=== PATIENT | male | born 1940 | race Caucasian/White ===

== ENCOUNTER 2022-08-02 17:29 | Inpatient (IN) | payer MEDICARE, OTHER, SELFPAY ==
[2022-08-02] VITALS (15 sets, daily range): BP systolic 101–131; BP diastolic 55–59; PULSE 61–88; RESP 18–20; TEMP 36.5–36.8; O2SAT 78–98; BMI 45.3
--- NOTE | 2022-08-02 17:35 | DI.RAD.S_ITS ---
PROCEDURE: XR CHEST 1V INDICATIONS: suspected sepsis TECHNIQUE: One view of the chest was acquired. COMPARISON: [facility], , CHEST FOR PICC PLACEMENT, 04/17/2015, 14:26. [facility], , CHEST 1 VIEW, 04/03/2015, 13:24. FINDINGS: Surgical changes and devices: Left chest wall pulse generator. Multiple electrode leads are present in the left and right chest guerrero, overall similar position compared to prior imaging in 2015. Lungs and pleura: Low lung volumes. No dense consolidation or pleural effusion. Mediastinum: Mediastinal contours appear normal. Heart size is normal. Bones and chest wall: No suspicious bony lesions. Overlying soft tissues appear unremarkable. IMPRESSION: No acute radiographic abnormality. Overall low lung volumes. Stable positioning of multiple electrode leads over the right and left chest guerrero. Dictated by: Giovanni Hunter M.D. on 08/02/2022 at 18:18 Approved by: Giovanni Hunter M.D. on 08/02/2022 at 18:19
[2022-08-02 18:01] LABS: Add Manual Diff / Slide Review NO; Basophils Absolute Auto 200 /uL (0-100); Basophils Percent Auto 1.6 % (0-2); Eosinophils Absolute Auto 500 /uL (0-450); Eosinophils Percent Auto 3.9 % (2-4); Hematocrit 40.4 % (41-53); Hemoglobin 12.9 g/dL (13.5-17.5); Lymphocytes Absolute Auto 3400 /uL (1100-4500); Lymphocytes Percent Auto 27.4 % (25-40); Mean Corpuscular HGB Conc 31.9 % (30-36); Mean Corpuscular Hemoglobin 24.7 PG (26-34); Mean Corpuscular Volume 77.4 fL (80-100); Monocytes Absolute Auto 800 /uL (0-900); Monocytes Percent Auto 6.8 % (3-14); Neutrophils Absolute Auto 7400 /uL (1500-7000); Neutrophils Percent Auto 60.3 % (50-75); Platelet Count 407 X10^3/uL (150-400); Red Blood Cell Count 5.22 X10^6/uL (4.5-5.9); Red Cell Distribution Width 18.8 % (11.6-14.8); White Blood Cell Count 12.3 X10^3/uL (4.5-11.0)
[2022-08-02 18:27] LABS: INR 1.3 (0.9-1.3); Prothrombin Time 14.4 SECONDS (10.1-12.7)
[2022-08-02 18:30] LABS: Alanine Aminotransferase 34 IU/L (<50); Alkaline Phosphatase 148 U/L (38-126); Aspartate Aminotransferase 33 IU/L (17-59); BUN Creatinine Ratio 24.5 (6-22); Bilirubin Total 0.4 mg/dL (0.2-1.3); Blood Urea Nitrogen 24 mg/dL (9-20); Calcium 8.7 mg/dL (8.4-10.2); Carbon Dioxide 33 mmol/L (22-32); Chloride 99 mmol/L (98-107); Estimated Glomerular Filt Rate > 60 mL/min (>60); Glucose 116 mg/dL (80-110); Lipase 95 U/L (23-300); Potassium 4.5 mmol/L (3.4-5.1); Sodium 138 mmol/L (137-145); Total Protein 7.7 g/dL (6.3-8.2)
[2022-08-02 18:30] LABS: Lactate (Lactic Acid) 1.1 mmol/L (0.7-2.1); PTT Partial Thromboplastin Tim 38 SECONDS (26-36)
[2022-08-02 18:40] LABS: COVID19 -Nasal RAPID Negative (Negative)
[2022-08-02 18:46] LABS: Procalcitonin 0.05 ng/mL (<0.5)
--- NOTE | 2022-08-02 18:57 | ED.SKABFB ---
HPI - Skin/Abscess/Foreign Bdy General Chief complaint: Skin/Abscess/Foreign Body Stated complaint: pressure sore Time Seen by Provider: 08/02/22 17:30 Source: patient and EMS Mode of arrival: EMS Limitations: no limitations History of Present Illness HPI narrative: 81-year-old gentleman with a back injury in 2002 which has led him to be nonambulatory since then. He was recently [place] overload and [place] [facility] [place] for [facility] however insurance ran out and he was discharged home. He was unable to care for himself at home and he was taken to [facility] Emergency Department on 07/20 where he spent 11 days voiding in the emergency department due to lack of disposition options. Hospital bed was arranged for home and he wanted to go home stated that he had additional help set up as well as oxygen. They were aware of a decubitus ulcer that was nonpainful because of decreased sensation to the lower extremities overall. He was started on Augmentin with wound care clinic follow-up on August 03 and discharge to home on the . Brought by medics to [facility] after visiting nurse was concerned that the pressure wound was getting worse. Patient is awake and alert x4 has a chronic indwelling Mckee and is on 2 L nasal cannula oxygen at baseline. He has no specific complaints and has no specific pain with minimal sensation to the area of the sacrum and unable to walk due to nerve injury. He does not report fevers, cough, chills, abdominal pain, vomiting or diarrhea. Related Data Home Medications Medication Instructions Recorded Confirmed ASPIRIN (Aspir-Low) 81 mg PO QDAY ##0 07/01/11 carvedilol 25 mg tablet (Coreg) 25 mg PO BID ##0 02/29/12 Ranitidine Hydrochloride 150 mg PO BID ##0 03/01/12 (RANITIDINE) lisinopril 10 mg tablet 10 mg PO QDAY ##0 03/01/12 simvastatin 20 mg tablet 20 mg PO HS ##0 03/01/12 Allergies Allergy/AdvReac Type Severity Reaction Status Date / Time No Known Drug Allergies Allergy Verified 08/02/22 17:38 Review of Systems Review of Systems Narrative: Remainder of complete review of systems is otherwise unremarkable except for that included in the HPI. Patient History Medical History (Updated 08/03/22 @ 02:04 by Mary Lou Angel MD) Congestive heart failure Coronary artery disease Hyperlipidemia Hypertension Paraplegic spinal paralysis Social History household members: spouse Smoking Status: Never smoker Smoking Status: Never smoker Substance Use Type: does not use Exam Initial Vital Signs Initial Vital Signs: Vital Signs Temperature 98.2 F 08/02/22 17:34 Pulse Rate 77 08/02/22 17:34 Respiratory Rate 18 08/02/22 17:34 Blood Pressure 131/58 L 08/02/22 17:34 Pulse Oximetry 90 L 08/02/22 17:34 Oxygen Delivery Method 08/02/22 17:34 Oxygen Flow Rate 2 08/02/22 17:34 General: Chronically ill-appearing but in no acute distress. Able to give a complete and coherent history. Well-nourished well-developed HEENT: Moist mucous membranes, normal sclera with reactive pupils, Neck: No JVD, supple Respiratory: Lungs are clear to auscultation, no wheezing no rales no rhonchi. Full and symmetrical air movement Cardiac: Pacemaker in the left upper chest, Regular rate and rhythm no murmurs no bruits Abdomen: Soft, obese, nontender, good bowel tones, no flank pain Skin: Large sacral decubitus ulcer with necrotic debris and tunneling, smells of Pseudomonas Neurologic: Minimal sensation from lower abdomen down. Significant weakness and unable to bear weight with lower extremities Extremities: No trauma, muscle atrophy, well perfused Psych: Cooperative, appropriate insight and affect Course Orders Ordered: ED Orders 08/02/22 17:35 XR chest 1V Stat EKG-12 Lead Stat RT Consult Eval and Treat NOW 08/02/22 17:37 Consult to [employer] - [employer] Meal Stat 08/02/22 17:52 Complete Blood Count AUTO DIFF Stat Comprehensive Metabolic Panel Stat Lipase Stat Procalcitonin Stat 08/02/22 18:00 Blood Culture Stat COVID19 -Nasal RAPID/Pre-Proc Stat Lactate (Lactic Acid) Stat Partial Thromboplastin Time Stat Prothrombin Time INR Stat 08/02/22 18:22 Urinalysis and Microscopic Stat Urine Culture Stat 08/02/22 18:58 CT abdomen pelvis w con Stat 08/02/22 19:00 Wound Culture and Gram Stain Stat Discontinued Medications Cefepime HCl 2 gm/ Sodium (Chloride) 100 mls @ 200 mls/hr IV NOW ONE Stop: 08/02/22 18:59 Last Infusion: 08/02/22 20:27 Dose: 0 mls/hr Documented By: Admin: 08/02/22 19:53 Dose: 200 mls/hr Documented By: ALENA Vancomycin HCl/Dextrose (Vancomycin) 2,000 mg in 400 mls @ 200 mls/hr IV NOW ONE Stop: 08/02/22 21:14 Last Infusion: 08/02/22 22:13 Dose: 0 mls/hr Documented By: Admin: 08/02/22 20:09 Dose: 200 mls/hr Documented By: ALENA Vancomycin HCl (Vancomycin Per Pharmacy) 1 request MISC NOW ONE Stop: 08/02/22 18:59 Last Admin: 08/02/22 21:27 Dose: Not Given Documented By: MAKENNA Vital Signs Vital signs: Vital Signs - 8 hr 08/02/22 18:30 08/02/22 19:00 08/02/22 19:30 Pulse Rate 64 76 65 Pulse Oximetry 96 95 78 L Oxygen Delivery Method Room Air 08/02/22 20:00 08/02/22 20:30 08/02/22 21:00 Pulse Rate 69 62 88 Pulse Oximetry 96 98 96 Oxygen Delivery Method 08/02/22 21:30 08/02/22 22:00 08/02/22 22:30 Pulse Rate 66 61 77 Pulse Oximetry 97 97 96 Oxygen Delivery Method MDM - Skin/Abscess/Foreign Bdy Lab Data Result diagrams: 08/02/22 17:52 08/02/22 17:52 Labs: Lab Results 08/02/22 08/02/22 08/02/22 Range/Units 17:52 17:52 18:00 WBC 12.3 H (4.5-11.0) X10^3/uL RBC 5.22 (4.5-5.9) X10^6/uL Hgb 12.9 L (13.5-17.5) g/dL Hct 40.4 L (41-53) % MCV 77.4 L (80-100) fL MCH 24.7 L (26-34) PG MCHC 31.9 (30-36) % RDW 18.8 H (11.6-14.8) % Plt Count 407 H (150-400) X10^3/uL Neut % (Auto) 60.3 (50-75) % Lymph % (Auto) 27.4 (25-40) % [place] % (Auto) 6.8 (3-14) % Eos % (Auto) 3.9 (2-4) % Baso % (Auto) 1.6 (0-2) % Neut # (Auto) 7400 H (3232-1625) /uL Lymph # (Auto) 3400 (6886-3358) /uL Dewey # (Auto) 800 (0-900) /uL Eos # (Auto) 500 H (0-450) /uL Baso # (Auto) 200 H (0-100) /uL PT 14.4 H (10.1-12.7) SECONDS INR 1.3 (0.9-1.3) APTT 38 H (26-36) SECONDS Sodium 138 (137-145) mmol/L Potassium 4.5 (3.4-5.1) mmol/L Chloride 99 (98-107) mmol/L Carbon Dioxide 33 H (22-32) mmol/L BUN 24 H (9-20) mg/dL Creatinine 0.98 (0.66-1.25) mg/dL Estimated GFR > 60 (>60) mL/min BUN/Creatinine Ratio 24.5 H (6-22) Glucose 116 H (80-110) mg/dL Lactate (0.7-2.1) mmol/L Calcium 8.7 (8.4-10.2) mg/dL Total Bilirubin 0.4 (0.2-1.3) mg/dL AST 33 (17-59) IU/L ALT 34 (<50) IU/L Alkaline Phosphatase 148 H (38-126) U/L Total Protein 7.7 (6.3-8.2) g/dL Lipase 95 (23-300) U/L Procalcitonin 0.05 (<0.5) ng/mL Urine Color Urine Appearance Urine pH (4.5-8.0) Ur Specific [place] (1.000-1.035) Urine Protein (Negative) Urine Glucose (UA) (Negative) g/dL Urine Ketones (NEGATIVE) Urine Occult Blood (Negative) Urine Nitrate (Negative) Urine Bilirubin (NEGATIVE) Urine Urobilinogen (0.2) E.U./dL Ur Leukocyte Esterase (NEGATIVE) Urine RBC (0-5/HPF) Urine WBC (0-5/HPF) Ur Squamous Epith Cells (0-5/HPF) Ur Transition Epith Cell (0-5/HPF) Urine Bacteria (None) Ur Culture Indicated? SARS-CoV-2 (PCR) (Negative) 08/02/22 08/02/22 08/02/22 Range/Units 18:00 18:00 18:22 WBC (4.5-11.0) X10^3/uL RBC (4.5-5.9) X10^6/uL Hgb (13.5-17.5) g/dL Hct (41-53) % MCV (80-100) fL MCH (26-34) PG MCHC (30-36) % RDW (11.6-14.8) % Plt Count (150-400) X10^3/uL Neut % (Auto) (50-75) % Lymph % (Auto) (25-40) % Dewey % (Auto) (3-14) % Eos % (Auto) (2-4) % Baso % (Auto) (0-2) % Neut # (Auto) (6779-2785) /uL Lymph # (Auto) (8525-5946) /uL Dewey # (Auto) (0-900) /uL Eos # (Auto) (0-450) /uL Baso # (Auto) (0-100) /uL PT (10.1-12.7) SECONDS INR (0.9-1.3) APTT (26-36) SECONDS Sodium (137-145) mmol/L Potassium (3.4-5.1) mmol/L Chloride (98-107) mmol/L Carbon Dioxide (22-32) mmol/L BUN (9-20) mg/dL Creatinine (0.66-1.25) mg/dL Estimated GFR (>60) mL/min BUN/Creatinine Ratio (6-22) Glucose (80-110) mg/dL Lactate 1.1 (0.7-2.1) mmol/L Calcium (8.4-10.2) mg/dL Total Bilirubin (0.2-1.3) mg/dL AST (17-59) IU/L ALT (<50) IU/L Alkaline Phosphatase (38-126) U/L Total Protein (6.3-8.2) g/dL Lipase (23-300) U/L Procalcitonin (<0.5) ng/mL Urine Color Yellow Urine Appearance Sl cloudy Urine pH 5.5 (4.5-8.0) Ur Specific [place] 1.010 (1.000-1.035) Urine Protein Negative (Negative) Urine Glucose (UA) Negative (Negative) g/dL Urine Ketones Negative (NEGATIVE) Urine Occult Blood 1+ H (Negative) Urine Nitrate Positive H (Negative) Urine Bilirubin Negative (NEGATIVE) Urine Urobilinogen 0.2 (0.2) E.U./dL Ur Leukocyte Esterase 2+ H (NEGATIVE) Urine RBC None seen (0-5/HPF) Urine WBC 30-100/hpf H (0-5/HPF) Ur Squamous Epith Cells 1-5 /hpf (0-5/HPF) Ur Transition Epith Cell 1-5/hpf (0-5/HPF) Urine Bacteria Moderate (10-30) H (None) Ur Culture Indicated? Specimen cultured SARS-CoV-2 (PCR) Negative (Negative) Imaging Data CT scan - abdomen/pelvis: Radiologist's Impression: FINDINGS:? Image quality:? Good ? Lower chest:? Basal scarring/atelectasis.? Partially seen electrode leads.? Coronary calcifications.? Small hiatal hernia.? Prominent mediastinal fat. ? Solid organs:? Liver is unremarkable.? Gallbladder is unremarkable.? No pathologic dilation of the biliary tree or pancreatic duct.? No splenomegaly.? No adrenal nodules.? No hydronephrosis. ? Vessels and lymph nodes:? Prominent abdominal pelvic lymph nodes, without pathologic adenopathy by size criteria.? No abdominal aortic aneurysm. ? Bowel and peritoneum:? No pathologic ascites.? No drainable intra-abdominal abscess.? No bowel obstruction.? Few colonic diverticula are present.? Suspected age-indeterminate epiploic appendagitis/fat necrosis in the distal descending colon, correlate for left lower quadrant pain. Normal appearance of the appendix and terminal ileum. ? Body wall:? Fat and omentum containing umbilical hernia.? Post sacral ulcer without drainable abscess.? There is a skin defect in this region, with fat stranding that extends to the coccyx and lower sacrum. ? Pelvis:? Under distended bladder with air and wall thickening, with a Mckee in place.? Prostate is not well evaluated. ? Bones:? No acute or suspicious osseous abnormality.? There is no convincing erosions in the pelvis.? Scattered degenerative changes and posterior decompression. ? ? IMPRESSION:? Post sacral ulcer with cellulitis changes, with inflammation extending to the region of the coccyx and lower sacrum.? Although there is no convincing osseous erosion on CT, MRI is more sensitive and can be ordered for further evaluation if desired. ? Under distended bladder with wall thickening and Mckee in place.? Correlate with urinalysis results. ? Other findings as above. ? ? Dictated by: Giovanni Hunter M.D. on 08/02/2022 at 20:11 ? ? ECG Data Interpretation: Sinus rhythm at a rate of [address] T wave changes No acute ischemia Treatment and disposition Social Determinants of Health that impact treatment or disposition: Difficulty caring for self with recent extended emergency department stay due to lack of placement options MDM Narrative Medical decision making narrative: CC: Worsening sacral decubitus :new problem, uncertain prognosis, potential for life-threatening morbidity and mortality Complicating co-morbidities: Paraplegia, congestive heart failure, hypertension, morbid obesity, mobility impaired Corroborating data: Data collected from: patient, Medical records reviewed: [place] [facility] Differential considered: Sacral decubitus, osteomyelitis, sepsis Exam documented above, pertinent findings include: Alert and appropriate. In no pain. Baseline heart rate and oxygen level. Large sacral decubitus with discharge, tunneling and surrounding cellulitis Lab Test results independently reviewed as above. Pertinent findings: Positive urinary tract infection Slightly elevated white blood cell count remainder of CBC is minimally abnormal Chemistries are reassuring with normal renal function Lactic acid is normal Procalcitonin is not elevated Independently reviewed EKG as above Imaging studies independently reviewed: Post sacral ulcer with cellulitis changes, with inflammation extending to the region of the coccyx and lower sacrum.? Although there is no convincing osseous erosion on CT Consultations: Dr. Rajput, general surgery. Agrees to consult on the patient to consider surgical debridement of the sacral decubitus Treatments: IV antibiotics with vancomycin and cefepime. This should be adequate for the decubitus infection as well as the urinary tract infection. Re-evaluations: Findings are discussed with the patient. He remains pain-free. Is pleased with the option for actual admission to the hospital rather than staying in the emergency department for an extended period of time. Is somewhat frustrated with the development and worsening of his sacral decubitus. Does not complain of urinary tract symptoms. Discussion: 81-year-old gentleman with paraplegia, congestive heart failure, difficulty in caring for herself with extended stay after insurance ran out in a [place] [facility] facility at an emergency department with no additional options open to him. While there developed a sacral decubitus ulcer and now has complications of such and will need to be admitted for infection and surgical debridement. Will need social work involved and help with discharge planning will need, again, [place] [facility] [place] care upon discharge Discharge Plan Departure Patient Disposition: Admitted As Inpatient Clinical Impression: Decubitus ulcer of sacral region, unstageable Admit Date/Time: 08/02/22 22:48 Admit Provider: Gabbi Purcell
--- NOTE | 2022-08-02 18:58 | DI.CT.S_ITS ---
PROCEDURE: CT ABDOMEN PELVIS W CON INDICATIONS: worsening sacral decub with deep tunneling TECHNIQUE: After the administration of intravenous contrast, axial sections acquired from the lung bases to the pubic symphysis. Coronal and sagittal reformats were performed. For radiation dose reduction, the following was used: automated exposure control, adjustment of mA and/or kV according to patient size. COMPARISON: None. FINDINGS: Image quality: Good Lower chest: Basal scarring/atelectasis. Partially seen electrode leads. Coronary calcifications. Small hiatal hernia. Prominent mediastinal fat. Solid organs: Liver is unremarkable. Gallbladder is unremarkable. No pathologic dilation of the biliary tree or pancreatic duct. No splenomegaly. No adrenal nodules. No hydronephrosis. Vessels and lymph nodes: Prominent abdominal pelvic lymph nodes, without pathologic adenopathy by size criteria. No abdominal aortic aneurysm. Bowel and peritoneum: No pathologic ascites. No drainable intra-abdominal abscess. No bowel obstruction. Few colonic diverticula are present. Suspected age-indeterminate epiploic appendagitis/fat necrosis in the distal descending colon, correlate for left lower quadrant pain. Normal appearance of the appendix and terminal ileum. Body wall: Fat and omentum containing umbilical hernia. Post sacral ulcer without drainable abscess. There is a skin defect in this region, with fat stranding that extends to the coccyx and lower sacrum. Pelvis: Under distended bladder with air and wall thickening, with a Mckee in place. Prostate is not well evaluated. Bones: No acute or suspicious osseous abnormality. There is no convincing erosions in the pelvis. Scattered degenerative changes and posterior decompression. IMPRESSION: Post sacral ulcer with cellulitis changes, with inflammation extending to the region of the coccyx and lower sacrum. Although there is no convincing osseous erosion on CT, MRI is more sensitive and can be ordered for further evaluation if desired. Under distended bladder with wall thickening and Mckee in place. Correlate with urinalysis results. Other findings as above. Dictated by: Giovanni Hunter M.D. on 08/02/2022 at 20:11 Approved by: Giovanni Hunter M.D. on 08/02/2022 at 20:17
--- NOTE | 2022-08-02 19:09 | PC.NURSE ---
Unstagable pressure ulcer noted on pt's coccyx. Dr. Angel at bedside to see. Culture performed. Wet to dry dressing done.
[2022-08-02 19:20] LABS: Appearance Urine UA SL CLOUDY; Bilirubin Urine UA NEGATIVE (NEGATIVE); Color Urine UA YELLOW; Glucose Urine UA NEGATIVE (Negative); Ketones Urine UA NEGATIVE (NEGATIVE); Leukocyte Esterase Urine UA 2+ (NEGATIVE); Nitrite Urine UA POSITIVE (Negative); Occult Blood Urine UA 1+ (Negative); Protein Urine UA NEGATIVE (Negative); Urobilinogen Urine UA 0.2 E.U./dL (0.2); pH Urine UA 5.5 (4.5-8.0)
[2022-08-02 19:27] LABS: Bacteria Urine Moderate (10-30); Culture Indicated Urine Specimen Cultured; RBC Urine None Seen (0-5/HPF); Squamous Epithelial Cell Urine 1-5 /HPF (0-5/HPF); Transitional Epi Cells Urine 1-5/HPF (0-5/HPF); WBC Urine 30-100/HPF (0-5/HPF)
--- NOTE | 2022-08-02 19:33 | CM.IDA ---
Initial DCP Assessment Note Patient is 81 y/o male who presents to ED via EMS after [facility] RN called 911 due to concern for patient's wounds and bed sores. Patient was d/c'd from [facility] on 07/31/22 after a 10 day ED stay. Patient's PCP is Dr. George Luna, patient has Medicare and [employer]. buffing turner and counter enter room to meet with patient. Patient presents as A/Ox3, endorses difficulty with ADLs at home. Patient presents as poor historian as he initially reported that there was no in home services set up upon his d/c from [facility]. Patient endorses that he had only been at home for a day and has been bed bound since recent d/c from [facility]. After reviewing [facility] records patient had recent stay at [facility] and transfer to SNF rehab. It is reported that patient has O2 at home and was d/c'd with [facility] for wound care. Per [facility] records, patient requested to d/c to home after 10 day ED stay. RN reports that patient's Marguerite (Ph.# [phone]) is patient's primary caregiver and unable to care for patient's needs at this time. Patient gives consent for DCP/DIRECTOR OF CORPORATE SALES to contact spouse. Per ED provider patient is in need of surgery and is being admitted to acute care. Plan: Patient to admit to acute care for surgery, DCP to f/u with POC, likely will need OT/PT eval post surgery and SNF rehab search. JEANNA Salgado Discharge Planning/Care Management CM Discharge Assessment Start: 08/02/22 19:21 Freq: Status: Active Protocol: Document 08/02/22 19:21 LN (Rec: 08/02/22 19:32 LN [id number]) Discharge Planning Assessment Assigned Quality Management Nurse JEANNA Ashley DPOA/Assigned Designee Name Marguerite Spear/spouse Contact Information [phone] Advance Directives? No Advance Directives on File No History Provided By Patient,Medical Record Has Patient been admitted in last 30 No days? Comment Patient was just d/c'd from [facility] after 10 day ED stay Prior Living Arrangements House Household Members spouse Type of transporation used prior to Relies on Others admit Independent with ADL's No Is patient alert and oriented? Yes Needs Assistance With Bathing,Grooming,Meal Prep, Toileting,Home Chores / Shopping Community Services used prior to Oxygen Therapy,Physical admission: Therapy,Occupational Therapy, Home Health Aid,Home Health Nurse DME Already Rented / Owned Hospital Bed Patient/Family Preference Correction Facility Please Provide Date Initial DC 08/02/22 Assessment Was Performed
[2022-08-02] MEDS: CEFEPIME 2 GM in SODIUM CHLORIDE 0.9% 100 ML IV (19:53)
[2022-08-02] MEDS: VANCOMYCIN 2,000 MG/400 ML PIGGYBACK 200 MG IV (20:09)
[2022-08-03] VITALS (8 sets, daily range): BP systolic 89–131; BP diastolic 39–68; PULSE 66–71; RESP 18–19; TEMP 36.2–36.9; O2SAT 90–94
--- NOTE | 2022-08-03 00:27 | PC.NURSE ---
Photographs of wound taken by Anahi ROQUE Wet to dry dressings placed.
[2022-08-03] MEDS: GABAPENTIN 600 MG TABLET PO ×3 (03:33→21:43)
[2022-08-03] MEDS: LIDOCAINE PATCH 1 EACH ADH..PATCH TOP (03:33)
--- NOTE | 2022-08-03 04:16 | DI.RAD.S_ITS ---
PROCEDURE: XR HIP W PEL IF DONE RT 2V INDICATIONS: reported mult falls, paraplegic, right hip TECHNIQUE: 2 views of the hip were acquired. COMPARISON: None. FINDINGS: Bones: No displaced fracture or dislocation. Soft tissues: No suspicious soft tissue calcifications. Evaluation is slightly limited by prominent overlying soft tissues. IMPRESSION: No acute radiographic abnormality. If there is high concern for occult injury, consider repeat radiography or cross-sectional imaging. Agree with prelim report. Dictated by: Giovanni Hunter M.D. on 08/03/2022 at 8:16 Approved by: Giovanni Hunter M.D. on 08/03/2022 at 8:16
--- NOTE | 2022-08-03 04:19 | DI.RAD.S_ITS ---
PROCEDURE: XR TIBIA FUBULA RT 2V INDICATIONS: mult falls, paraplegic, signs of infec, decub ulcer TECHNIQUE: 2 views of the tibia and fibula were acquired. COMPARISON: None. FINDINGS: Bones: Partially seen knee arthroplasty. Chronic appearing deformities of the distal tibia and mid and proximal fibula. No convincing osseous erosion. There is some lucency surrounding the tibial portion of the knee arthroplasty. Soft tissues: No suspicious calcifications. IMPRESSION: No definitely acute finding. Agree with preliminary report. Deformity is of the tibia and fibula are probably chronic. Age-indeterminate mild lucent appearance surrounding the knee arthroplasty of uncertain significance, correlate for any clinical signs of loosening or infection. Dictated by: Giovanni Hunter M.D. on 08/03/2022 at 8:12 Approved by: Giovanni Hunter M.D. on 08/03/2022 at 8:15
--- NOTE | 2022-08-03 04:20 | DI.RAD.S_ITS ---
PROCEDURE: XR FOOT RT 2V INDICATIONS: mult falls, paraplegic, signs of infec, decub ulcer TECHNIQUE: Two views of the foot were acquired. COMPARISON: None. FINDINGS: Bones: Osteopenia limits evaluation. The toes are not well seen. There are hammertoe deformities. No displaced fracture or dislocation. Plantar calcaneal enthesopathy. Soft tissues: No suspicious calcifications. IMPRESSION: Degraded radiographic evaluation. The toes are not well seen. Hammertoe deformities. Overall osteopenia. Consider cross-sectional imaging if there is high concern for injury or derangement. No significant discrepancy from the prelim report. Dictated by: Giovanni Hunter M.D. on 08/03/2022 at 8:16 Approved by: Giovanni Hunter M.D. on 08/03/2022 at 8:19
--- NOTE | 2022-08-03 04:22 | DI.CT.S_ITS ---
PROCEDURE: CT LE RT W CON INDICATIONS: mult falls, paraplegic, signs of infec, decub ulcer. Right TECHNIQUE: After the administration of intravenous contrast, 2 mm axial sections acquired of the left lower extremity from just above left knee to bottom of left foot with coronal and sagittal reformats. COMPARISON: [facility], CR, XR TIBIA FIBULA RT 2V, 08/03/2022, 4:57. FINDINGS: Image quality: Excellent. Bones: Patient is status post prior left total knee arthroplasty with significant beam hardening artifacts slightly limits the evaluation. Alignment of lower leg is anatomic. No gross acute fracture or dislocation. No evidence of hardware loosening or failure. Chronic appearing deformity involving proximal fibular shaft is seen consistent with old healed fracture. Similar chronic appearing deformity is also noted involving distal tibial shaft consistent with healed oblique fracture. Old oblique fracture involving distal fibular shaft/lateral malleolus is also seen with partial bony union at fracture site and up to 4 mm diastasis. No other fracture or dislocation is seen. No bony erosive changes or significant periosteal reaction. Moderate osteoarthritic changes are noted in ankle and foot joints. Soft tissues: There is significant subcutaneous soft tissue edema and swelling along anterior and medial aspect of mid to distal lower leg extending to ankle and dorsal aspect of midfoot. No discrete drainable peripherally in sensing fluid collection is seen. No area of abnormal intramuscular enhancement. Small calcifications are seen in subcutaneous soft tissue along medial aspect of lower leg suggestive of small vascular calcifications. IMPRESSION: 1. Suggestion of cellulitis along anterior and medial aspect of mid to distal lower leg. No discrete drainable abscess collection is seen. 2. Prior right total knee arthroplasty. No gross hardware loosening or failure. No acute fracture or dislocation. Old healed fractures involving proximal fibular shaft, mid to distal tibial shaft, and lateral malleolus. Right ankle and foot joint osteoarthritis. 3. No CT evidence of osteomyelitis. Dictated by: Mekhi Blackburn M.D. on 08/03/2022 at 10:39 Approved by: Mekhi Blackburn M.D. on 08/03/2022 at 10:48
--- NOTE | 2022-08-03 04:24 | DI.US.S_ITS ---
PROCEDURE: US PERIPH VENOUS LOW EXTREM RT INDICATIONS: EDEMA AND HISTORY OF DEEP VEIN THROMBOSIS TECHNIQUE: Real-time imaging, as well as color and pulse Doppler interrogation, were performed of the lower extremity deep veins from the inguinal ligament to the popliteal fossa. COMPARISON: None. FINDINGS: The common femoral, femoral and popliteal veins are normally compressible, and free of intraluminal thrombus. Color and pulse Doppler demonstrate normal phasic intraluminal flow. There is normal augmentation response to distal compression maneuver. IMPRESSION: No evidence of DVT in visualized right lower extremity veins. Dictated by: Mekhi Blackburn M.D. on 08/03/2022 at 9:25 Approved by: Mekhi Blackburn M.D. on 08/03/2022 at 9:33
--- NOTE | 2022-08-03 04:27 | P.HP_ITS ---
History of Present Illness History of Present Illness Date Patient Seen: 08/02/22 Time Patient Seen: 23:00 Chief complaint: pressure sore Narrative: Joey Grover is an 81-year-old male CHF, NV stent x2, pacer on chronic Eliquis, HTN, HLD, CAD, history of right leg DVT incomplete spinal cord injury paraplegic (reported secondary to laminectomy in 2002 that resulted in spinal Staph infection), intermittent catheterization during day & Ferguson nightly patient was transported following home nurse visit evaluation of a sacral decubitus ulcer. Patient at he had been using walker or crutches and was able to perform independent ADLs until approximately 3-4 months ago when he started to have increasing bilateral lower leg weakness. Patient admitted to the [facility] following 5 serious falls, resulting in worsening weakness, worsening right leg pain, losing the ability to perform ADLs and become completely wheelchair-bound. Patient reports that he was treated for right leg edema started Lasix and then discharged to [facility] and resided in [facility] until he ran out of coverage for insurance and then was sent home he was unable to function home CAD continuing worsening weakness-the patient then went to [facility] was not admitted but remained in the ED for approximately 10 days where he was boarding in the [facility] ED due to lack of placement since July 20, 2022 Diagnosed with sacral wound 11.5 x 8 x 0.1 unstageable pressure injury covering the sacral region bilateral buttocks, right penile shaft lesion wound likely associated with chronic indwelling Ferguson catheter use at bedtime, and a left lateral malleolus wound stage 2, patient was sent home on Augmentin discharged scheduled follow-up appointment [id number]. When patient was examined by home health nurse she immediately called 911 for transport to [facility]. He has no specific complaints and has no specific pain with minimal sensation to the area of the sacrum and unable to walk due to nerve injury.? He does not report fevers, cough, chills, abdominal pain, vomiting, body aches, chills, diarrhea, blood in urine or stool, does have dysuria, notes chronic low back pain, denies chest pain, shortness in breath. At the time of admit patient's vitals are stable temp 98.2?, BP 131/58, HR 76, R 18, O2 saturation 95% on room air-the patient states that he does not require oxygen at home. WBC 12.3, neutrophils 7400, eos 500, baso 200, H&H 12.9/40, MCV 77.4, MCH 24.7, platelets 407, bicarb 33, alk-phos 148, INR stable 1.3, lactate, lipase, procalcitonin COVID are all negative. Patient's urinalysis positive for nitrates and bacteria culture pending, sofa score 0, EKG sinus rhythm rate of [address] and T-wave changes. CT of abdomen pelvis demonstrate posterior sacral ulceration with cellulitis changes and inflammation extending to the region of the coccyx and lower sacral area. Patient admitted for sacral decubitus ulcer, UTI. Ferguson was placed on admit today in the ED. Dr. Rajput to consult-plan to take to the OR for debridement Patient History Medical History (Updated 08/03/22 @ 07:46 by Gabbi Purcell [facility]) Chronic anticoagulation Chronic indwelling Ferguson catheter Congestive heart failure Coronary artery disease History of [place] (myocardial infarction) Hyperlipidemia Hypertension Intermittent self-catheterization of bladder Pacemaker Paraplegic spinal paralysis Spinal cord injury, incomplete Surgical History (Updated 08/03/22 @ 07[facility] History of coronary artery stent placement History of laminectomy History of right knee joint replacement Family & Social History Family History (Updated 08/03/22 @ 07:47 by Gabbi Purcell [facility] Father Congestive heart failure Mother Cancer Social History: household members spouse Prior Living Arrangements House Safety & Behavioral: Feels Safe in Current Yes Environment Been Physically Hurt or No Threatened By a Person Tobacco & Substance use: Smoking Status Never smoker Substance Use Type does not use Meds Home Medications and Allergies Home Medications Medication Instructions Recorded Confirmed Type ASPIRIN (Aspir-Low) 81 mg PO QDAY ##0 07/01/11 History carvedilol 25 mg tablet (Coreg) 25 mg PO BID ##0 02/29/12 History Ranitidine Hydrochloride 150 mg PO BID ##0 03/01/12 History (RANITIDINE) lisinopril 10 mg tablet 10 mg PO QDAY ##0 03/01/12 History simvastatin 20 mg tablet 20 mg PO HS ##0 03/01/12 History albuterol sulfate 90 mcg/actuation inhalation 08/03/22 History aerosol inhaler (ProAir HFA) furosemide 40 mg tablet mg 08/03/22 History lidocaine 5 % topical patch 1 patch transdermal Q12H PRN Pain, 08/03/22 08/03/22 History Mild Allergies Allergy/AdvReac Type Severity Reaction Status Date / Time No Known Drug Allergies Allergy Verified 08/02/22 17:38 Review of Systems Review of Systems Narrative: All 12 point systems reviewed with the patient and are negative except otherwise documented. Exam Vital Signs (past 8 hours): - 08/02/22 20:30 08/02/22 21:00 08/02/22 21:30 Temperature Pulse Rate 62 88 66 Respiratory Rate Blood Pressure Pulse Oximetry 98 96 97 Oxygen Delivery Method Oxygen Flow Rate 08/02/22 22:00 08/02/22 22:30 08/02/22 23:00 Temperature Pulse Rate 61 77 62 Respiratory Rate Blood Pressure Pulse Oximetry 97 96 96 Oxygen Delivery Method Oxygen Flow Rate 08/02/22 23:18 08/02/22 23:18 08/02/22 23:19 Temperature Pulse Rate 63 Respiratory Rate Blood Pressure 106/56 L 101/55 L Pulse Oximetry 96 Oxygen Delivery Method Oxygen Flow Rate 08/02/22 23:19 08/02/22 23:17 08/03/22 03:30 Temperature 97.2 F L Pulse Rate 65 68 Respiratory Rate 19 Blood Pressure 90/39 L Pulse Oximetry 95 91 Oxygen Delivery Method Room Air Oxygen Flow Rate 0 08/02/22 22:30 Temperature 97.7 F Pulse Rate 70 Respiratory Rate 20 Blood Pressure 126/59 L Pulse Oximetry 94 Oxygen Delivery Method Oxygen Flow Rate 0 Oxygen Delivery Method Room Air Oxygen Flow Rate 0 Narrative Exam Narrative: General:? Chronically ill-appearing but in no acute distress.? Able to give a complete and coherent history.? Well-nourished well-developed HEENT:? Moist mucous membranes, normal sclera with reactive pupils, Neck:? No JVD, supple Respiratory:? Lungs occasional scattered wheezing throughout, slightly labored with speaking, shallow breath sounds equal throughout. Cardiac:? Pacemaker in the left upper chest, Regular rate and rhythm no murmurs no bruits Abdomen:? Soft, obese, nontender, good bowel tones, no flank pain-indwelling Ferguson in place Skin:? Large sacral decubitus ulcer with necrotic debris and tunneling, smells of Pseudomonas, right-sided penile lesion, open draining, right testicle (tennis ball size) is significantly larger (non tender no wound present, than left (golfball), Left lower leg nontender, is externally rotated in flexed position, unable to physically straighten the leg, which may be due to spas ticity, noted edema mild pitting +1, erythemic, significantly warmer to touch, that descends below the knee to encompass the foot, pedal pulses intact, sensation intact, noted erythemic area proximally the size of a baseball, right lower leg no edema present, skin is cool to touch pale, pulses intact and sensation, patient had pain discomfort with palpation to lower right hip area and upper femur. Neurologic:? Minimal sensation from lower abdomen down.? Significant weakness and unable to bear weight with lower extremities, onset 3-4 months ago following significant multiple falls. Extremities:? muscle atrophy, well perfused Psych:? Cooperative, appropriate insight and affect Objective Labs Result Diagrams: 08/02/22 17:52 08/02/22 17:52 Labs: Laboratory Results - last 24 hr 08/02/22 08/02/22 08/02/22 17:52 17:52 18:00 WBC 12.3 H RBC 5.22 Hgb 12.9 L Hct 40.4 L MCV 77.4 L MCH 24.7 L MCHC 31.9 RDW 18.8 H Plt Count 407 H Neut % (Auto) 60.3 Lymph % (Auto) 27.4 [place] % (Auto) 6.8 Eos % (Auto) 3.9 Baso % (Auto) 1.6 Neut # (Auto) 7400 H Lymph # (Auto) 3400 [place] # (Auto) 800 Eos # (Auto) 500 H Baso # (Auto) 200 H PT 14.4 H INR 1.3 APTT 38 H Sodium 138 Potassium 4.5 Chloride 99 Carbon Dioxide 33 H BUN 24 H Creatinine 0.98 Estimated GFR > 60 BUN/Creatinine Ratio 24.5 H Glucose 116 H Lactate Calcium 8.7 Total Bilirubin 0.4 AST 33 ALT 34 Alkaline Phosphatase 148 H Total Protein 7.7 Lipase 95 Procalcitonin 0.05 Urine Color Urine Appearance Urine pH Ur Specific [place] Urine Protein Urine Glucose (UA) Urine Ketones Urine Occult Blood Urine Nitrate Urine Bilirubin Urine Urobilinogen Ur Leukocyte Esterase Urine RBC Urine WBC Ur Squamous Epith Cells Ur Transition Epith Cell Urine Bacteria Ur Culture Indicated? SARS-CoV-2 (PCR) 08/02/22 08/02/22 08/02/22 18:00 18:00 18:22 WBC RBC Hgb Hct MCV MCH MCHC RDW Plt Count Neut % (Auto) Lymph % (Auto) [place] % (Auto) Eos % (Auto) Baso % (Auto) Neut # (Auto) Lymph # (Auto) [place] # (Auto) Eos # (Auto) Baso # (Auto) PT INR APTT Sodium Potassium Chloride Carbon Dioxide BUN Creatinine Estimated GFR BUN/Creatinine Ratio Glucose Lactate 1.1 Calcium Total Bilirubin AST ALT Alkaline Phosphatase Total Protein Lipase Procalcitonin Urine Color Yellow Urine Appearance Sl cloudy Urine pH 5.5 Ur Specific [place] 1.010 Urine Protein Negative Urine Glucose (UA) Negative Urine Ketones Negative Urine Occult Blood 1+ H Urine Nitrate Positive H Urine Bilirubin Negative Urine Urobilinogen 0.2 Ur Leukocyte Esterase 2+ H Urine RBC None seen Urine WBC 30-100/hpf H Ur Squamous Epith Cells 1-5 /hpf Ur Transition Epith Cell 1-5/hpf Urine Bacteria Moderate (10-30) H Ur Culture Indicated? Specimen cultured SARS-CoV-2 (PCR) Negative Assessment & Plan Assessment & Plan narrative: Joey Grover is an 81-year-old male CHF, NV stent x2, pacer on chronic Eliquis, HTN, HLD, CAD, history of right leg DVT incomplete spinal cord injury paraplegic (reported secondary to laminectomy in 2002 that resulted in spinal Staph infection), intermittent catheterization during day & Ferguson nightly admitted for sacral decubitus ulcer. 1. Sacral decubitus ulcer acute, in an incomplete SCI paraplegic, chronic, present on admission Abd/P CT : Post sacral ulcer with cellulitis changes, with inflammation extending to the region of the coccyx and lower sacrum. -Dr. Rajput to consult- OR for I&D -vanco, cefepime, Flagyl -patient NPO except a.m. blood pressure medication lisinopril and Coreg -pain management and continue lidocaine patches, hold gabapentin -Ferguson in place -ordered wound care evaluation, PT, OT -wound cultures pending -blood cultures pending 2. UTI, acute, likely secondary to chronic indwelling catheter and intermittent catheterization secondary to SCI, acute on chronic, right-sided penile ulceration stage II, acute, present on admission -vanco, cefepime, Flagyl -noted enlarged right testicle -nontender -recommend that patient stop useage of indwelling ferguson, consider urology o/p consult for urinary cath port access via umbilicus -Wound care consult 3. Incomplete SCI, paraplegic, neurological function deterioration,, frequent falls, acute on chronic, present on admission -patient will need likely rehab or snf placement -PT OT evaluation -recommend patient consult Neurology/and or est care SCI specialist at for on-going management -Fall precautions 4. Congestive heart failure, chronic, with a history of NV pacemaker on chronic anticoagulation, present on admission -no previous documentation in our system -EKG sinus rhythm rate [address] and T-wave changes -trend troponins, ordered BNP -patient on telemedicine overnight -holding Lasix 5. Right leg edema, with erythema, acute, present on admission -history of DVT in right lower leg, recent history significant 5 falls resulting in progressive leg weakness and right leg only. -suspect in rule out possible cellulitis, soft tissue infection, DVT, osteomyelitis -also right leg externally rotated in a flexed position, pain to right hip upper femur with palpation -right leg pressure injury to anterior tibia, warm to touch, erythematous, +1 mild pitting edema Foot to just below the knee -wound care consult -right hip pelvic x-ray, CT of lower right leg and foot, ultrasound of right lower leg 6. Hypertension, essential, chronic, present on admission -continue Coreg and lisinopril 7. Chronic low back, present on admission -continue lidocaine patches, gabapentin after surgery 8. Hyperlipidemia, chronic, present on admission -hold simvastatin 9. Morbid obesity secondary to incomplete SCI paraplegic, acute on chronic, present on admission -as evidence by BMI 44.3 -dietary consult ordered regarding nutritional education and information for dietary, lifestyle, exercise, and weight changes. -the patient is at much higher risk for medical and surgical complications due to obesity as it relates to chronic illnesses:, and acute illness. The patient's obesity increases the difficulty and complexity of medical and/or surgical interventions, management and increases the chances of poor outcome such as morbidity and mortality as well as impaired wound healing. Code status:Full Surrogate decision maker: Gaby's appear spouse COVID PCR: Negative COVID vaccination: Fully vaccinated DVT/VTE prophylaxis: Holding patient's Eliquis, SCDs only Disposition: Patient admitted to acute care for evaluation sacral decubitus ulcer with surgical intervention with multiple other wound, UTI-will require [facility] facility placement or rehab following discharge. I have utilized all available immediate resources to obtain, update, or review the patient's current medications. I confirmed that the patient's advanced care plan is present, Code status is documented and/or surrogate decision maker is listed in the patient's medical record. I have personally reviewed patient's chart notes from PCP, specialists, diagnostic imaging, and laboratory results. Time Spent With Patient Critical Care time: I spent a total of [] minutes of critical care time on this patient's care today; this time is exclusive of procedural time. Quality VTE Deep Vein Thrombosis/Pulmonary Embolism Present on Admission: No
[2022-08-03] MEDS: metroNIDAZOLE 500 MG/100 ML PIGGYBACK 100 MG IV ×2 (05:27→14:16)
[2022-08-03 06:24] LABS: Add Manual Diff / Slide Review NO; Basophils Absolute Auto 100 /uL (0-100); Basophils Percent Auto 0.8 % (0-2); Eosinophils Absolute Auto 400 /uL (0-450); Eosinophils Percent Auto 2.9 % (2-4); Hematocrit 38.3 % (41-53); Hemoglobin 12.2 g/dL (13.5-17.5); Lymphocytes Absolute Auto 3000 /uL (1100-4500); Lymphocytes Percent Auto 24.2 % (25-40); Mean Corpuscular HGB Conc 31.8 % (30-36); Mean Corpuscular Hemoglobin 24.4 PG (26-34); Mean Corpuscular Volume 76.7 fL (80-100); Monocytes Absolute Auto 800 /uL (0-900); Monocytes Percent Auto 6.4 % (3-14); Neutrophils Absolute Auto 8100 /uL (1500-7000); Neutrophils Percent Auto 65.7 % (50-75); Platelet Count 446 X10^3/uL (150-400); Red Cell Distribution Width 18.7 % (11.6-14.8); White Blood Cell Count 12.3 X10^3/uL (4.5-11.0)
[2022-08-03 06:31] LABS: INR 1.3 (0.9-1.3); Prothrombin Time 15.2 SECONDS (10.1-12.7)
[2022-08-03 06:34] LABS: Alanine Aminotransferase 28 IU/L (<50); Alkaline Phosphatase 137 U/L (38-126); Aspartate Aminotransferase 25 IU/L (17-59); BUN Creatinine Ratio 26.6 (6-22); Bilirubin Total 0.5 mg/dL (0.2-1.3); Bilirubin Unconjugated 0.2 mg/dL (0.0-1.1); Blood Urea Nitrogen 21 mg/dL (9-20); C-Reactive Protein Quant 3.4 mg/dL (<1.0); Calcium 8.4 mg/dL (8.4-10.2); Carbon Dioxide 29 mmol/L (22-32); Chloride 102 mmol/L (98-107); Estimated Glomerular Filt Rate > 60 mL/min (>60); Glucose 98 mg/dL (80-110); Magnesium 2.1 mg/dL (1.6-2.3); Potassium 4.3 mmol/L (3.4-5.1); Sodium 139 mmol/L (137-145); Total Protein 6.7 g/dL (6.3-8.2)
[2022-08-03 06:39] LABS: NT-proBNP (BNP-Adult 18+) 695 pg/mL (<450)
[2022-08-03 06:42] LABS: Troponin I < 0.012 ng/mL (0.01-0.034)
[2022-08-03 06:55] LABS: Thyroid Stimulating Hormone 1.44 uIU/mL (0.47-4.68)
[2022-08-03 07:24] LABS: Erythrocyte Sedimentation Rate 44 MM/HR (0-15)
[2022-08-03] MEDS: CEFEPIME 2 GM in SODIUM CHLORIDE 0.9% 100 ML IV ×2 (08:09→21:42)
[2022-08-03] MEDS: VANCOMYCIN 1,250 MG/250 ML PIGGYBACK 166.67 MG IV ×2 (09:47→23:28)
--- NOTE | 2022-08-03 10:45 | PT.IIE ---
Current Diagnoses Paraplegia, unspecified (08/02/22) Surgery Performed Operation Date: 08/04/22 15:30 <No data on this case meets the specified criteria> Surgical History ([facility]03[facility]22 [facility] 07[facility] History of coronary artery stent placement History of laminectomy History of right knee joint replacement Medical History (Last Updated 08/03/22 @ 07:46 by MALLIKA Vela) Chronic anticoagulation Chronic indwelling Mckee catheter Congestive heart failure Coronary artery disease History of [place] (myocardial infarction) Hyperlipidemia Hypertension Intermittent self-catheterization of bladder Pacemaker Paraplegic spinal paralysis Spinal cord injury, incomplete Physical Therapy Inpatient Evaluation/Re-Eval M1 PT/OT-IP Prior Functional Status Start: 08/03/22 11:52 Freq: NEEDED Status: Active Protocol: Document 08/03/22 10:45 AB (Rec: 08/03/22 12:16 AB [id number]) Medical Review Prior Functional Status Medical History Reviewed Yes Communication able to make needs known Mobility and Gait pt inconsistent with info provided for PLOF: pt stated that he was able to stand and transfer by himself without AD ~ 2 weeks ago but B knee gives out and unable to transfer but when asked if he is mostly in bed and pt stated no and has been transferring in/out of his w/c but has been falling. stated that spouse does not assist him with transfer since she is 82y/o and will not be strong enough to help him. pt stated that he has not ambulated for years. also stated that he has been at [facility] Jul 02 and has been in there for at least a month and that he was able to do a squat pivot transfer with assist. Social History Household Members spouse Living Arrangements House Number of Floors (Floors) 3 or More Floors Number of Stairs To Enter/Railing? has a chair lift to get to the different floors of the house ; Home Environment High Toilet,Built-In Shower Seat Home Equipment Manual Wheelchair,Hand Held Shower,Hospital Bed,Grab Bars Near Toilet,Grab Bars In Shower Additional Social History Comment pt stated that he has a walk in tub shower M2 PT-IP Current Condition Start: 08/03/22 11:52 Freq: NEEDED Status: Active Protocol: Document 08/03/22 10:45 AB (Rec: 08/03/22 12:16 AB [email or web address]) Physical Therapy Current Condition Current Condition Evaluation Date 08/03/22 Treatment Diagnosis sacral decubitus ulcer; generalized weakness Onset Date 08/02/22 M3 PT-IP Subjective Start: 08/03/22 11:52 Freq: NEEDED Status: Active Protocol: Document 08/03/22 10:45 AB (Rec: 08/03/22 12:16 AB [email or web address]) Subjective Physical Therapy Visit Type Type Initial Evaluation Visit Start Time 10:45 Visit Stop Time 11:45 Total Visit Minutes 41 Notes pt seen for split visits: 1045 am to 1059 and 1120 to 1145 Number of FORM PRESS OPERATOR Visits 0 Physical Therapy Visit Comments Patient Comments pt needs encouragement to participate; easily gets agitated M4 PT-IP Mobility and Gait Start: 08/03/22 11:52 Freq: NEEDED Status: Active Protocol: Document 08/03/22 10:45 AB (Rec: 08/03/22 12:16 AB [email or web address]) PT-Bed Mobility Assessment Supine to Sit Supine to Sit Maximum Assistance,1 Person Assistance,2 Person Assistance ,Head of Bed Elevated,Bedrails Scooting Scooting to Edge of Bed Dependent PT-Transfer Assessment Comments Mobility Comments checked and pt and pt initially stated that he cannot get up. pt easily gets agitated but can be redirected. completed supine to sit max A x 1-2 and max cues with HOB elevated and pt used bed rail. max A for sitting balance with LOB posteriorly back to bed and assisted up again max A x 1-2. agreed to stand and completed max A x 2 using fWW but unable to get to upright position. pt stated that he cannot use his LE and just used his arms. when asked if it because of pain or weakness that he is not using his LE and pt gets agitated and stated that this is when he had previous back surgery and staph infection. educated pt and informed pt regarding PT goals and what needs to be donw to achieve those goals and pt agreed to work on his LE and with standing for transfers. pt assisted back to bed max A x 1-2 and max cues. positioned pt in bed. Left pt with NAC and nurse. PT-Balance Assessment Sitting Balance and Reactions Static Sitting Balance Ability Fair Dynamic Sitting Balance Ability Poor Standing Balance and Reactions Static Standing Balance Ability Poor Dynamic Standing Balance Ability Poor Device Used FWW M5 PT-IP Objective Assessments Start: 08/03/22 11:52 Freq: NEEDED Status: Active Protocol: Document 08/03/22 10:45 AB (Rec: 08/03/22 12:16 AB [email or web address]) Orientation Orientation/Cognition Level of Alertness Alert Orientation Name Language Function Ability Hard of Hearing Safety Awareness Decreased Safety Awareness Memory Description Short Term Impaired,Shelter Impaired Gross Range of Motion Lower Extremity ROM Assessment Within Functional Limits Strength Lower Extremity Strength Assessment Bilaterally Impaired Comments Strength Comments LLE: 4-/5 RLE: 3+/5 Muscle Tone Muscle Tone WNL Yes M6 PT-IP Treatment Start: 08/03/22 11:52 Freq: NEEDED Status: Active Protocol: Document 08/03/22 10:45 AB (Rec: 08/03/22 12:16 AB [email or web address]) Physical Therapy Treatment Education Education Provided Safety M7 PT-IP Assessment and Plan Start: 08/03/22 11:52 Freq: NEEDED Status: Active Protocol: Document 08/03/22 10:45 AB (Rec: 08/03/22 12:16 AB [email or web address]) PT Summary Assessment and Plan Potential Rehabilitation Potential Fair Status of Condition at Evaluation Evolving Summary Impairments Pain,ROM,Strength,Balance, Coordination,Sensation,Tone, Cognition,Bed Mobility, Transfers,Gait,Activity Tolerance Goals Bed Mobility Goal Minimal Assistance Transfer Goal Moderate Assistance Days to Meet Goals 10 Frequency of Treatment Frequency Of Treatment Once a Day Treatment Plan Physical Therapy Treatment Plan Bed Mobility Training,Transfer Training,Gait Training, Therapeutic Exercise,Balance Retraining,Post Op Education, Discharge Planning,Hot or Cold Pack,Neuromuscular Re-ed, Coordination Retraining,Manual Therapy Precautions Other Precautions falls Recommendations To Nursing Amount of Assist Needed Mechanical Lift Discharge Recommendations PT Discharge Recommendations SNF Rehab Transportation Needs at Discharge Wheelchair/Cabulance
[2022-08-03 11:39] LABS: Troponin I < 0.012 ng/mL (0.01-0.034)
--- NOTE | 2022-08-03 11:58 | PC.NURSE ---
Addendum entered by Paola Nieves R.N. 08/03/22 11:59: Notified Dr. Lozano, diet ordered for patient. Original Note: Late entry- Spoke to TURNING MACHINE OPERATOR and she states patient will be having surgery tomorrow 08/04/2022.
--- NOTE | 2022-08-03 13:47 | DIET.CONS ---
Dietary Consultation Note Admission Date: 08/02/2022 22:48 Assessment: 81y M admitted for unstagable pressure ulcer on sacrum requiring I&D referred to nutrition for wound healing and Jose score 13. RD met with pt at bedside, pt is paraplegic at baseline and sits in wheelchair. Pt lives with who cooks for him. Pt recently at [facility] for rehab. Diet Recall: B: sausage breakfast sandwich L: fried chicken take out or BLT D: mac n cheese, potatoes Pt reports some gas production with intake of dairy products but still likes to eat ice cream. Likes: christie beans, corn, raw carrots, melon, apples, bananas, applesauce Ht: 177.8 cm Wt: 140 kg BMI: 45.3 Last BM: 08/02/22 (08/02/22 23:17) MNA: 11 Jose Score: 13 Diet: 08/03/22 Lunch General (Regular) Diet Diet Modifications: 08/04/22 00:01 NPO Diet Diet Modifications: NPO Type: NPO after Midnight Labs: RBC 5.00 X10^6/uL (4.5-5.9) 08/03/22 06:03 Hgb 12.2 g/dL (13.5-17.5) L 08/03/22 06:03 Hct 38.3 % (41-53) L 08/03/22 06:03 Creatinine 0.79 mg/dL (0.66-1.25) 08/03/22 06:03 Lactate 1.1 mmol/L (0.7-2.1) 08/02/22 18:00 NT-Pro-B Natriuret Pep 695 pg/mL (<450) H 08/03/22 06:03 Nutrition Diagnosis: increased need of nutrients for healing (protein, Vit A, Vit C, zinc) r/t wound healing aeb pt with unstagable pressure ulcer requiring I&D, pts home diet low in protein and micronutrients. Interventions: 1. Educated pt on protein content of foods. Collaborated c pt on ideas to increase intake at home during post-op healing. RD will return to educate pt and further. 2. When diet assigned post-op, providing high pro diet with ONS Andres in applesauce bid and fruit cup with meals. Electronically Signed by: Catherine Penaloza 08/03/22 13:47 Clinical Dietitian [address] [id number]
--- NOTE | 2022-08-03 13:47 | OT.IPNOTE ---
Attempted to see pt for OT eval and pt states already got up with PT and just wanting to eat and wait to be seen after his surgery tomorrow.
--- NOTE | 2022-08-03 14:19 | CM.DPNOTE ---
DCP Note According to conversation w/spouse Marguerite this morning: Patient was at [facility] from Jul 03-2021, went home and shortly thereafter was in the [facility] ER (for UTI and fall ?) where he stayed from Jul 20-. Spouse states patient's decub formed in the [facility] ER and she was horrified when patient returned home and she saw severity of the wound. Spouse explains it has been difficult at home but she is willing to take patient home if needed w/assist from her grandson (22 yo), services and in home caregivers Spouse has received assistance applying for [facility] and has been told they do not qualify financially. Explained that if patient and spouse were to apply again, they may qualify but may need to pay a participation fee in order to receive vermin exterminator care (either in home vs facility) Spouse hopeful that patient will again be able to self transfer, as that is his baseline, however patient has been declining over the last 2 years. Spouse asks that [facility] be contacted in case they can take patient again for rehab, second choice is [facility]. Discussed in home care options and spouse states patient has [facility], and has worked with [facility] and [facility] caregiving [facility]. Both [facility] RN and nya CHOUDHARY were at the house yesterday before patient again went to the ER Patient is 40% service connected and has an assigned [place] [facility] social work professor in [place]: Werner Raygoza P [phone] Placed call to Alyssa at [facility]; she expects they can take patient again if admitted inpatient for 3 evenings. Patient appears to have approx 60 days left of his 100 day MCR benefit. Patient had been discharged home in June because he had plateaued with therapies. In order to discharge to [facility], patient will need to have skilled needs ie wound care, abx, and/or need for therapies Alyssa/Kamaljit agreed to follow as patient's medical POC unfolds. Patient is scheduled for I+D of the wound tomorrow CM team following closely. Plan: DC to SNF vs Home w/spouse, family, in home caregiving ([facility] in home assist- aid and attendance?) GILDA Goodman
[2022-08-03] MEDS: ACETAMINOPHEN 325 MG TABLET 650 MG PO (14:26)
--- NOTE | 2022-08-03 16:24 | PM.CN ---
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 obesity, CHF, and limited disposition options. Has no pain, does have an odor. Meds Home Medications and Allergies Home Medications Medication Instructions Recorded Confirmed Type ASPIRIN (Aspir-Low) 81 mg PO QDAY ##0 07/01/11 History carvedilol 25 mg tablet (Coreg) 25 mg PO BID ##0 02/29/12 History Ranitidine Hydrochloride 150 mg PO BID ##0 03/01/12 History (RANITIDINE) lisinopril 10 mg tablet 10 mg PO QDAY ##0 03/01/12 History simvastatin 20 mg tablet 20 mg PO HS ##0 03/01/12 History albuterol sulfate 90 mcg/actuation inhalation 08/03/22 History aerosol inhaler (ProAir HFA) furosemide 40 mg tablet mg 08/03/22 History lidocaine 5 % topical patch 1 patch transdermal Q12H PRN Pain, 08/03/22 08/03/22 History Mild Allergies Allergy/AdvReac Type Severity Reaction Status Date / Time No Known Drug Allergies Allergy Verified 08/02/22 17:38 Review of Systems Review of Systems ROS: Yes All systems reviewed with the patient and are negative except as otherwise documented Exam Vital Signs (past 8 hours): - 08/03/22 09:09 08/03/22 12:00 Temperature 97.7 F Pulse Rate 71 67 Respiratory Rate 19 Blood Pressure 102/56 L 92/58 L Pulse Oximetry 91 Oxygen Flow Rate 0 Oxygen Delivery Method Room Air Oxygen Flow Rate 0 Const General: cooperative and comfortable Nutritional Appearance: overweight Orientation: alert, awake and oriented x3 HENMT Head: normocephalic and atraumatic Eyes Sclera: sclerae normal Neck Neck: trachea midline Resp Effort & Inspection: normal respiratory effort and able to speak in complete sentences Cardio Rate: regular rate Rhythm: abnormal rhythm GI Palpation: soft Skin General: atrophy Other: sacral wound, CT reviewed Neuro Cognition: normal cognition Extrem General: muscle atrophy Psych Judgment: judgment good Objective Labs Result Diagrams: 08/03/22 06:03 08/03/22 06:03 Labs: Laboratory Results - last 24 hr 08/02/22 08/02/22 08/02/22 17:52 17:52 18:00 WBC 12.3 H RBC 5.22 Hgb 12.9 L Hct 40.4 L MCV 77.4 L MCH 24.7 L MCHC 31.9 RDW 18.8 H Plt Count 407 H Neut % (Auto) 60.3 Lymph % (Auto) 27.4 [place] % (Auto) 6.8 Eos % (Auto) 3.9 Baso % (Auto) 1.6 Neut # (Auto) 7400 H Lymph # (Auto) 3400 [place] # (Auto) 800 Eos # (Auto) 500 H Baso # (Auto) 200 H ESR PT 14.4 H INR 1.3 APTT 38 H Sodium 138 Potassium 4.5 Chloride 99 Carbon Dioxide 33 H BUN 24 H Creatinine 0.98 Estimated GFR > 60 BUN/Creatinine Ratio 24.5 H Glucose 116 H Lactate Calcium 8.7 Magnesium Total Bilirubin 0.4 Conjugated Bilirubin Unconjugated Bilirubin AST 33 ALT 34 Alkaline Phosphatase 148 H Troponin I C-Reactive Protein NT-Pro-B Natriuret Pep Total Protein 7.7 Lipase 95 Procalcitonin 0.05 TSH Urine Color Urine Appearance Urine pH Ur Specific [place] Urine Protein Urine Glucose (UA) Urine Ketones Urine Occult Blood Urine Nitrate Urine Bilirubin Urine Urobilinogen Ur Leukocyte Esterase Urine RBC Urine WBC Ur Squamous Epith Cells Ur Transition Epith Cell Urine Bacteria Ur Culture Indicated? SARS-CoV-2 (PCR) 08/02/22 08/02/22 08/02/22 18:00 18:00 18:22 WBC RBC Hgb Hct MCV MCH MCHC RDW Plt Count Neut % (Auto) Lymph % (Auto) [place] % (Auto) Eos % (Auto) Baso % (Auto) Neut # (Auto) Lymph # (Auto) [place] # (Auto) Eos # (Auto) Baso # (Auto) ESR PT INR APTT Sodium Potassium Chloride Carbon Dioxide BUN Creatinine Estimated GFR BUN/Creatinine Ratio Glucose Lactate 1.1 Calcium Magnesium Total Bilirubin Conjugated Bilirubin Unconjugated Bilirubin AST ALT Alkaline Phosphatase Troponin I C-Reactive Protein NT-Pro-B Natriuret Pep Total Protein Lipase Procalcitonin TSH Urine Color Yellow Urine Appearance Sl cloudy Urine pH 5.5 Ur Specific [place] 1.010 Urine Protein Negative Urine Glucose (UA) Negative Urine Ketones Negative Urine Occult Blood 1+ H Urine Nitrate Positive H Urine Bilirubin Negative Urine Urobilinogen 0.2 Ur Leukocyte Esterase 2+ H Urine RBC None seen Urine WBC 30-100/hpf H Ur Squamous Epith Cells 1-5 /hpf Ur Transition Epith Cell 1-5/hpf Urine Bacteria Moderate (10-30) H Ur Culture Indicated? Specimen cultured SARS-CoV-2 (PCR) Negative 08/03/22 08/03/22 08/03/22 06:03 06:03 06:03 WBC 12.3 H RBC 5.00 Hgb 12.2 L Hct 38.3 L MCV 76.7 L MCH 24.4 L MCHC 31.8 RDW 18.7 H Plt Count 446 H Neut % (Auto) 65.7 Lymph % (Auto) 24.2 L [place] % (Auto) 6.4 Eos % (Auto) 2.9 Baso % (Auto) 0.8 Neut # (Auto) 8100 H Lymph # (Auto) 3000 [place] # (Auto) 800 Eos # (Auto) 400 Baso # (Auto) 100 ESR 44 H PT 15.2 H INR 1.3 APTT Sodium Potassium Chloride Carbon Dioxide BUN Creatinine Estimated GFR BUN/Creatinine Ratio Glucose Lactate Calcium Magnesium Total Bilirubin Conjugated Bilirubin Unconjugated Bilirubin AST ALT Alkaline Phosphatase Troponin I C-Reactive Protein NT-Pro-B Natriuret Pep 695 H Total Protein Lipase Procalcitonin TSH Urine Color Urine Appearance Urine pH Ur Specific [place] Urine Protein Urine Glucose (UA) Urine Ketones Urine Occult Blood Urine Nitrate Urine Bilirubin Urine Urobilinogen Ur Leukocyte Esterase Urine RBC Urine WBC Ur Squamous Epith Cells Ur Transition Epith Cell Urine Bacteria Ur Culture Indicated? SARS-CoV-2 (PCR) 08/03/22 08/03/22 08/03/22 06:03 06:03 06:03 WBC RBC Hgb Hct MCV MCH MCHC RDW Plt Count Neut % (Auto) Lymph % (Auto) [place] % (Auto) Eos % (Auto) Baso % (Auto) Neut # (Auto) Lymph # (Auto) [place] # (Auto) Eos # (Auto) Baso # (Auto) ESR PT INR APTT Sodium 139 Potassium 4.3 Chloride 102 Carbon Dioxide 29 BUN 21 H Creatinine 0.79 Estimated GFR > 60 BUN/Creatinine Ratio 26.6 H Glucose 98 Lactate Calcium 8.4 Magnesium 2.1 Total Bilirubin 0.5 Conjugated Bilirubin 0.0 Unconjugated Bilirubin 0.2 AST 25 ALT 28 Alkaline Phosphatase 137 H Troponin I < 0.012 C-Reactive Protein 3.4 H NT-Pro-B Natriuret Pep Total Protein 6.7 Lipase Procalcitonin TSH 1.44 Urine Color Urine Appearance Urine pH Ur Specific [place] Urine Protein Urine Glucose (UA) Urine Ketones Urine Occult Blood Urine Nitrate Urine Bilirubin Urine Urobilinogen Ur Leukocyte Esterase Urine RBC Urine WBC Ur Squamous Epith Cells Ur Transition Epith Cell Urine Bacteria Ur Culture Indicated? SARS-CoV-2 (PCR) 08/03/22 11:06 WBC RBC Hgb Hct MCV MCH MCHC RDW Plt Count Neut % (Auto) Lymph % (Auto) [place] % (Auto) Eos % (Auto) Baso % (Auto) Neut # (Auto) Lymph # (Auto) [place] # (Auto) Eos # (Auto) Baso # (Auto) ESR PT INR APTT Sodium Potassium Chloride Carbon Dioxide BUN Creatinine Estimated GFR BUN/Creatinine Ratio Glucose Lactate Calcium Magnesium Total Bilirubin Conjugated Bilirubin Unconjugated Bilirubin AST ALT Alkaline Phosphatase Troponin I < 0.012 C-Reactive Protein NT-Pro-B Natriuret Pep Total Protein Lipase Procalcitonin TSH Urine Color Urine Appearance Urine pH Ur Specific [place] Urine Protein Urine Glucose (UA) Urine Ketones Urine Occult Blood Urine Nitrate Urine Bilirubin Urine Urobilinogen Ur Leukocyte Esterase Urine RBC Urine WBC Ur Squamous Epith Cells Ur Transition Epith Cell Urine Bacteria Ur Culture Indicated? SARS-CoV-2 (PCR) PFSH Medical History Chronic anticoagulation Chronic indwelling Mckee catheter Congestive heart failure Coronary artery disease History of [place] (myocardial infarction) Hyperlipidemia Hypertension Intermittent self-catheterization of bladder Pacemaker Paraplegic spinal paralysis Spinal cord injury, incomplete Surgical History (Updated 08/03/22 @ 07:46 by MALLIKA Vela) History of coronary artery stent placement History of laminectomy History of right knee joint replacement Family History (Updated 08/03/22 @ 07:47 by MALLIKA Vela) Father Congestive heart failure Mother Cancer Social History household members: spouse Tobacco & Substance Use Smoking Status: Never smoker Assessment & Plan Assessment & Plan narrative: sacral decubitus Plan: OR Wed for debridement COVID-19 COVID-19 status: Negative Time Spent With Patient Time with patient: less than 30 minutes Critical Care time: I spent a total of [] minutes of critical care time on this patient's care today; this time is exclusive of procedural time.
--- NOTE | 2022-08-03 17:21 | PM.PN.1 ---
Subjective Subjective Date Patient Seen: 08/03/22 Interval history: Complains of chronic burning pain today, states he takes gabapentin TID. Denies chest pain, shortness of breath. Debridement of wounds delayed until tomorrow. Exam Vital Signs (past 8 hours): - 08/03/22 12:00 Temperature 97.7 F Pulse Rate 67 Respiratory Rate 19 Blood Pressure 92/58 L Pulse Oximetry 91 Oxygen Flow Rate 0 Oxygen Delivery Method Room Air Oxygen Flow Rate 0 Narrative Exam Narrative: General:? Patient is well developed and well nourished, in no distress at this time. HEENT:? Normocephalic, atraumatic, extraocular muscles intact, oral pharynx is clear and mucous membranes are moist. Chest:? Normal AP diameter and contour without kyphoscoliosis, no tachypnea, equal chest rise bilaterally. Lungs:? CTA b/l no wheezing rhonchi or rales. Cardio:?RRR no m/r/g. Abdomen: S NT ND. Extremities: RLE edema > LLE edema. Objective Labs Result Diagrams: 08/03/22 06:03 08/03/22 06:03 Labs: Laboratory Results - last 24 hr 08/02/22 08/02/22 08/02/22 17:52 17:52 18:00 WBC 12.3 H RBC 5.22 Hgb 12.9 L Hct 40.4 L MCV 77.4 L MCH 24.7 L MCHC 31.9 RDW 18.8 H Plt Count 407 H Neut % (Auto) 60.3 Lymph % (Auto) 27.4 [place] % (Auto) 6.8 Eos % (Auto) 3.9 Baso % (Auto) 1.6 Neut # (Auto) 7400 H Lymph # (Auto) 3400 [place] # (Auto) 800 Eos # (Auto) 500 H Baso # (Auto) 200 H ESR PT 14.4 H INR 1.3 APTT 38 H Sodium 138 Potassium 4.5 Chloride 99 Carbon Dioxide 33 H BUN 24 H Creatinine 0.98 Estimated GFR > 60 BUN/Creatinine Ratio 24.5 H Glucose 116 H Lactate Calcium 8.7 Magnesium Total Bilirubin 0.4 Conjugated Bilirubin Unconjugated Bilirubin AST 33 ALT 34 Alkaline Phosphatase 148 H Troponin I C-Reactive Protein NT-Pro-B Natriuret Pep Total Protein 7.7 Lipase 95 Procalcitonin 0.05 TSH Urine Color Urine Appearance Urine pH Ur Specific [place] Urine Protein Urine Glucose (UA) Urine Ketones Urine Occult Blood Urine Nitrate Urine Bilirubin Urine Urobilinogen Ur Leukocyte Esterase Urine RBC Urine WBC Ur Squamous Epith Cells Ur Transition Epith Cell Urine Bacteria Ur Culture Indicated? SARS-CoV-2 (PCR) 08/02/22 08/02/22 08/02/22 18:00 18:00 18:22 WBC RBC Hgb Hct MCV MCH MCHC RDW Plt Count Neut % (Auto) Lymph % (Auto) [place] % (Auto) Eos % (Auto) Baso % (Auto) Neut # (Auto) Lymph # (Auto) [place] # (Auto) Eos # (Auto) Baso # (Auto) ESR PT INR APTT Sodium Potassium Chloride Carbon Dioxide BUN Creatinine Estimated GFR BUN/Creatinine Ratio Glucose Lactate 1.1 Calcium Magnesium Total Bilirubin Conjugated Bilirubin Unconjugated Bilirubin AST ALT Alkaline Phosphatase Troponin I C-Reactive Protein NT-Pro-B Natriuret Pep Total Protein Lipase Procalcitonin TSH Urine Color Yellow Urine Appearance Sl cloudy Urine pH 5.5 Ur Specific [place] 1.010 Urine Protein Negative Urine Glucose (UA) Negative Urine Ketones Negative Urine Occult Blood 1+ H Urine Nitrate Positive H Urine Bilirubin Negative Urine Urobilinogen 0.2 Ur Leukocyte Esterase 2+ H Urine RBC None seen Urine WBC 30-100/hpf H Ur Squamous Epith Cells 1-5 /hpf Ur Transition Epith Cell 1-5/hpf Urine Bacteria Moderate (10-30) H Ur Culture Indicated? Specimen cultured SARS-CoV-2 (PCR) Negative 08/03/22 08/03/22 08/03/22 06:03 06:03 06:03 WBC 12.3 H RBC 5.00 Hgb 12.2 L Hct 38.3 L MCV 76.7 L MCH 24.4 L MCHC 31.8 RDW 18.7 H Plt Count 446 H Neut % (Auto) 65.7 Lymph % (Auto) 24.2 L [place] % (Auto) 6.4 Eos % (Auto) 2.9 Baso % (Auto) 0.8 Neut # (Auto) 8100 H Lymph # (Auto) 3000 [place] # (Auto) 800 Eos # (Auto) 400 Baso # (Auto) 100 ESR 44 H PT 15.2 H INR 1.3 APTT Sodium Potassium Chloride Carbon Dioxide BUN Creatinine Estimated GFR BUN/Creatinine Ratio Glucose Lactate Calcium Magnesium Total Bilirubin Conjugated Bilirubin Unconjugated Bilirubin AST ALT Alkaline Phosphatase Troponin I C-Reactive Protein NT-Pro-B Natriuret Pep 695 H Total Protein Lipase Procalcitonin TSH Urine Color Urine Appearance Urine pH Ur Specific [place] Urine Protein Urine Glucose (UA) Urine Ketones Urine Occult Blood Urine Nitrate Urine Bilirubin Urine Urobilinogen Ur Leukocyte Esterase Urine RBC Urine WBC Ur Squamous Epith Cells Ur Transition Epith Cell Urine Bacteria Ur Culture Indicated? SARS-CoV-2 (PCR) 08/03/22 08/03/22 08/03/22 06:03 06:03 06:03 WBC RBC Hgb Hct MCV MCH MCHC RDW Plt Count Neut % (Auto) Lymph % (Auto) [place] % (Auto) Eos % (Auto) Baso % (Auto) Neut # (Auto) Lymph # (Auto) [place] # (Auto) Eos # (Auto) Baso # (Auto) ESR PT INR APTT Sodium 139 Potassium 4.3 Chloride 102 Carbon Dioxide 29 BUN 21 H Creatinine 0.79 Estimated GFR > 60 BUN/Creatinine Ratio 26.6 H Glucose 98 Lactate Calcium 8.4 Magnesium 2.1 Total Bilirubin 0.5 Conjugated Bilirubin 0.0 Unconjugated Bilirubin 0.2 AST 25 ALT 28 Alkaline Phosphatase 137 H Troponin I < 0.012 C-Reactive Protein 3.4 H NT-Pro-B Natriuret Pep Total Protein 6.7 Lipase Procalcitonin TSH 1.44 Urine Color Urine Appearance Urine pH Ur Specific [place] Urine Protein Urine Glucose (UA) Urine Ketones Urine Occult Blood Urine Nitrate Urine Bilirubin Urine Urobilinogen Ur Leukocyte Esterase Urine RBC Urine WBC Ur Squamous Epith Cells Ur Transition Epith Cell Urine Bacteria Ur Culture Indicated? SARS-CoV-2 (PCR) 08/03/22 11:06 WBC RBC Hgb Hct MCV MCH MCHC RDW Plt Count Neut % (Auto) Lymph % (Auto) [place] % (Auto) Eos % (Auto) Baso % (Auto) Neut # (Auto) Lymph # (Auto) [place] # (Auto) Eos # (Auto) Baso # (Auto) ESR PT INR APTT Sodium Potassium Chloride Carbon Dioxide BUN Creatinine Estimated GFR BUN/Creatinine Ratio Glucose Lactate Calcium Magnesium Total Bilirubin Conjugated Bilirubin Unconjugated Bilirubin AST ALT Alkaline Phosphatase Troponin I < 0.012 C-Reactive Protein NT-Pro-B Natriuret Pep Total Protein Lipase Procalcitonin TSH Urine Color Urine Appearance Urine pH Ur Specific [place] Urine Protein Urine Glucose (UA) Urine Ketones Urine Occult Blood Urine Nitrate Urine Bilirubin Urine Urobilinogen Ur Leukocyte Esterase Urine RBC Urine WBC Ur Squamous Epith Cells Ur Transition Epith Cell Urine Bacteria Ur Culture Indicated? SARS-CoV-2 (PCR) PFSH Medical History Chronic anticoagulation Chronic indwelling Ferguson catheter Congestive heart failure Coronary artery disease History of [place] (myocardial infarction) Hyperlipidemia Hypertension Intermittent self-catheterization of bladder Pacemaker Paraplegic spinal paralysis Spinal cord injury, incomplete Surgical History (Updated 08/03/22 @ 07:[address] [facility]) History of coronary artery stent placement History of laminectomy History of right knee joint replacement Family History (Updated 08/03/22 @ 07:[address] [facility]) Father Congestive heart failure Mother Cancer Social History household members: spouse Smoking Status: Never smoker Assessment & Plan Assessment & Plan narrative: Joey Grover is an 81-year-old male CHF, [place] stent x2, pacer on chronic Eliquis, HTN, HLD, CAD, history of right leg DVT incomplete spinal cord injury paraplegic (reported secondary to laminectomy in 2002 that resulted in spinal Staph infection), intermittent catheterization during day & Ferguson nightly admitted for sacral decubitus ulcer. 1. Sacral decubitus ulcer acute, in an incomplete SCI paraplegic, chronic, present on admission Abd/P CT : Post sacral ulcer with cellulitis changes, with inflammation extending to the region of the coccyx and lower sacrum. -Dr. Rajput to consult- OR for debridement planned for tomorrow. Discussed with team upcoming plan. -continue cefepime and vanco, discontinue -hold aceinhibitor AM prior to surgery -pain management and continue lidocaine patches, continue gabapentin -Ferguson in place - PT, OT after surgery -follow up wound and blood cultures. 2. UTI, acute, likely secondary to chronic indwelling catheter and intermittent catheterization secondary to SCI, acute on chronic, right-sided penile ulceration stage II, acute, present on admission -cefepime and vanco as noted above. -continue ferguson 3. Incomplete SCI, paraplegic, neurological function deterioration,, frequent falls, acute on chronic, present on admission -patient will need likely rehab or snf placement -PT OT evaluation as noted above. 4. Congestive heart failure, chronic, with a history of [place] pacemaker on chronic anticoagulation, present on admission -no previous documentation in our system -EKG sinus rhythm rate [address] and T-wave changes troponins negative. -continue tele for now. -holding Lasix in setting of some low BP with infected ulcer. 5. Right leg edema, with erythema, acute, present on admission -history of DVT in right lower leg, recent history significant 5 falls resulting in progressive leg weakness and right leg only. -suspect in rule out possible cellulitis, soft tissue infection, DVT, osteomyelitis. CT shows probable cellulitis without abscess. No DVT on ultrasound. 6. Hypertension, essential, chronic, present on admission -continue Coreg and lisinopril except holding myriam prior to surgery. 7. Chronic low back, present on admission -continue lidocaine patches, gabapentin 8. Hyperlipidemia, chronic, present on admission -continue simvastatin changed to atorvastatin for hospital formulary. 9. Morbid obesity secondary to incomplete SCI paraplegic, acute on chronic, present on admission -as evidence by BMI 44.3 -dietary consult ordered regarding nutritional education and information for dietary, lifestyle, exercise, and weight changes. -the patient is at much higher risk for medical and surgical complications due to obesity as it relates to chronic illnesses:, and acute illness. The patient's obesity increases the difficulty and complexity of medical and/or surgical interventions, management and increases the chances of poor outcome such as morbidity and mortality as well as impaired wound healing. Code status:Full Surrogate decision maker: Gaby's appear spouse COVID PCR: Negative COVID vaccination: Fully vaccinated DVT/VTE prophylaxis: Holding patient's Eliquis, SCDs only Disposition: Inpatient, probable SNF upon discharge. Was previously admitted to [facility]. Time Spent With Patient Critical Care time: I spent a total of [] minutes of critical care time on this patient's care today; this time is exclusive of procedural time. Quality VTE Deep Vein Thrombosis/Pulmonary Embolism Present on Admission: No
[2022-08-03 18:05] LABS: Troponin I < 0.012 ng/mL (0.01-0.034)
[2022-08-03 19:32] LABS: Erythrocyte Sedimentation Rate 36 MM/HR (0-15)
[2022-08-03] MEDS: carvediloL 12.5 MG TABLET 25 MG PO (21:53)
[2022-08-04] VITALS (16 sets, daily range): BP systolic 107–128; BP diastolic 48–76; PULSE 64–76; RESP 13–24; TEMP 36–37.2; O2SAT 90–100; BMI 43.6
[2022-08-04 06:28] LABS: Add Manual Diff / Slide Review NO; Basophils Absolute Auto 0 /uL (0-100); Basophils Percent Auto 0.3 % (0-2); Eosinophils Absolute Auto 300 /uL (0-450); Eosinophils Percent Auto 3.4 % (2-4); Hematocrit 39.3 % (41-53); Hemoglobin 12.5 g/dL (13.5-17.5); Lymphocytes Absolute Auto 3000 /uL (1100-4500); Lymphocytes Percent Auto 29.1 % (25-40); Mean Corpuscular HGB Conc 31.7 % (30-36); Mean Corpuscular Hemoglobin 24.5 PG (26-34); Mean Corpuscular Volume 77.2 fL (80-100); Monocytes Absolute Auto 900 /uL (0-900); Monocytes Percent Auto 8.3 % (3-14); Neutrophils Absolute Auto 6100 /uL (1500-7000); Neutrophils Percent Auto 58.9 % (50-75); Platelet Count 417 X10^3/uL (150-400); Red Blood Cell Count 5.09 X10^6/uL (4.5-5.9); Red Cell Distribution Width 19.1 % (11.6-14.8); White Blood Cell Count 10.3 X10^3/uL (4.5-11.0)
[2022-08-04 06:34] LABS: BUN Creatinine Ratio 24.4 (6-22); Blood Urea Nitrogen 19 mg/dL (9-20); Calcium 8.5 mg/dL (8.4-10.2); Carbon Dioxide 29 mmol/L (22-32); Chloride 102 mmol/L (98-107); Estimated Glomerular Filt Rate > 60 mL/min (>60); Glucose 104 mg/dL (80-110); HEMOLYSIS < 15 (0-50); Potassium 4.3 mmol/L (3.4-5.1); Sodium 139 mmol/L (137-145)
--- NOTE | 2022-08-04 07:12 | P.PN_ITS ---
Subjective Subjective Interval history: Patient is doing well. He denies shortness of breath. No chest pain. No abdomen pain. He understands his procedure is later today. Exam Vital Signs (past 8 hours): - 08/04/22 05:15 Temperature 97.0 F L Pulse Rate 69 Respiratory Rate 24 Blood Pressure 121/51 L Pulse Oximetry 90 L Oxygen Flow Rate 0 Oxygen Delivery Method Room Air Oxygen Flow Rate 0 Const Other: No distress HENMT Head: normal to inspection Eyes Sclera: sclerae normal Neck Neck: normal visual inspection and full ROM Chest Chest: normal inspection of the chest Resp Effort & Inspection: normal respiratory effort Auscultation: clear to auscultation bilaterally Cardio Rate: regular rate Rhythm: regular rhythm GI Palpation: soft, no hepatosplenomegaly and No tender Skin Rashes: no rashes Neuro General: patient alert, patient awake and patient oriented x3 Extrem General: No edema Psych Appearance: grossly normal Mental Status: mental status grossly normal Speech and Movement: speech and movement normal Objective Labs Result Diagrams: 08/04/22 05:57 08/04/22 05:57 Labs: Laboratory Results - last 24 hr 08/03/22 08/03/22 08/03/22 06:03 11:06 17:15 WBC RBC Hgb Hct MCV MCH MCHC RDW Plt Count Neut % (Auto) Lymph % (Auto) [place] % (Auto) Eos % (Auto) Baso % (Auto) Neut # (Auto) Lymph # (Auto) [place] # (Auto) Eos # (Auto) Baso # (Auto) ESR 44 H Sodium Potassium Chloride Carbon Dioxide BUN Creatinine Estimated GFR BUN/Creatinine Ratio Glucose Calcium Troponin I < 0.012 < 0.012 08/03/22 08/04/22 08/04/22 17:15 05:57 05:57 WBC 10.3 RBC 5.09 Hgb 12.5 L Hct 39.3 L MCV 77.2 L MCH 24.5 L MCHC 31.7 RDW 19.1 H Plt Count 417 H Neut % (Auto) 58.9 Lymph % (Auto) 29.1 [place] % (Auto) 8.3 Eos % (Auto) 3.4 Baso % (Auto) 0.3 Neut # (Auto) 6100 Lymph # (Auto) 3000 [place] # (Auto) 900 Eos # (Auto) 300 Baso # (Auto) 0 ESR 36 H Sodium 139 Potassium 4.3 Chloride 102 Carbon Dioxide 29 BUN 19 Creatinine 0.78 Estimated GFR > 60 BUN/Creatinine Ratio 24.4 H Glucose 104 Calcium 8.5 Troponin I [facility] Medical History Chronic anticoagulation Chronic indwelling Ferguson catheter Congestive heart failure Coronary artery disease History of IA (myocardial infarction) Hyperlipidemia Hypertension Intermittent self-catheterization of bladder Pacemaker Paraplegic spinal paralysis Spinal cord injury, incomplete Surgical History History of coronary artery stent placement History of laminectomy History of right knee joint replacement Family History (Updated 08/03/22 @ 07:47 by Gabbi Purcell [facility]) Father Congestive heart failure Mother Cancer Social History household members: spouse Smoking Status: Never smoker Assessment & Plan Assessment & Plan narrative: Joey Grover is an 81-year-old male CHF, IA stent x2, pacer on chronic Eliquis, HTN, HLD, CAD, history of right leg DVT incomplete spinal cord injury paraplegic (reported secondary to laminectomy in 2002 that resulted in spinal Staph infection), intermittent catheterization during day & Ferguson nightly admitted for sacral decubitus ulcer. 1. Sacral decubitus ulcer acute, in an incomplete SCI paraplegic, chronic, present on admission and active. -Dr. Rajput , OR for debridement planned for today. -continue cefepime. -hold myriam inhibitor AM prior to surgery, resume tomorrow. -pain management, continue lidocaine patches, continue gabapentin -Ferguson in place (chronic) - PT, OT after surgery -follow up wound and blood cultures. 2. UTI, associated with chronic indwelling catheter. Intermittent self catheterization secondary to spinal cord injury, acute on chronic, right-sided penile ulceration stage II, acute, present on admission and active. -Antibiotics as noted above. -ferguson (he uses self cath and nocturnal ferguson at home) 3. Incomplete Spinal cord injury with paraplegia ( neurological function deterioration,, frequent falls), acute on chronic, present on admission and active. -patient will need likely rehab or SNF placement -PT/OT evaluation as noted above. 4. Congestive heart failure (No ECHO available), chronic, with a history of IA pacemaker on chronic anticoagulation, present on admission -no previous documentation in our system -EKG sinus rhythm rate [address] and T-wave changes troponins negative. -continue tele for now. -holding Lasix in setting of some low BP with infected ulcer. 5. Right leg edema, with erythema, acute, present on admission and improving. -history of DVT in right lower leg, recent history significant 5 falls resulting in progressive leg weakness and right leg only. -suspect in rule out possible cellulitis, soft tissue infection, DVT, osteomyelitis. CT shows probable cellulitis without abscess. No DVT on ultra sound. 6. Hypertension, essential, chronic, present on admission -continue Coreg and lisinopril except holding myriam prior to surgery. 7. Chronic low back, present on admission -continue lidocaine patches, gabapentin 8. Hyperlipidemia, chronic, present on admission -continue simvastatin changed to atorvastatin for hospital formulary. 9. Morbid obesity secondary to incomplete SCI paraplegic, acute on chronic, present on admission -as evidence by BMI 44.3 -dietary consult ordered regarding nutritional education and information for dietary, lifestyle, exercise, and weight changes. -the patient is at much higher risk for medical and surgical complications due to obesity as it relates to chronic illnesses:, and acute illness. The patient's obesity increases the difficulty and complexity of medical and/or surgical interventions, management and increases the chances of poor outcome such as morbidity and mortality as well as impaired wound healing. Code status:Full Surrogate decision maker: Gaby's appear spouse COVID PCR: Negative COVID vaccination: Fully vaccinated DVT/VTE prophylaxis: Holding patient's Eliquis, SCDs only. Resume after surgery. Disposition: Inpatient, probable SNF upon discharge. Was previously admitted to [facility]. Time Spent With Patient Critical Care time: I spent a total of [] minutes of critical care time on this patient's care today; this time is exclusive of procedural time. Quality VTE Deep Vein Thrombosis/Pulmonary Embolism Present on Admission: No
[2022-08-04 09:25] LABS: Vancomycin Trough 15.2 ug/mL (10-20)
[2022-08-04] MEDS: VANCOMYCIN 1,250 MG/250 ML PIGGYBACK 166.67 MG IV (10:07)
[2022-08-04] MEDS: LIDOCAINE PATCH 1 EACH ADH..PATCH TOP (10:08)
[2022-08-04] MEDS: DOCUSATE 100 MG CAPSULE PO ×2 (10:27→20:54)
[2022-08-04] MEDS: ATORVASTATIN 20 MG TABLET 40 MG PO (10:27)
[2022-08-04] MEDS: carvediloL 12.5 MG TABLET 25 MG PO ×2 (10:27→20:54)
[2022-08-04] MEDS: FUROSEMIDE 40 MG TABLET PO (10:28)
[2022-08-04] MEDS: GABAPENTIN 600 MG TABLET PO ×2 (10:28→20:54)
[2022-08-04] MEDS: CEFEPIME 2 GM in SODIUM CHLORIDE 0.9% 100 ML IV (12:08)
--- NOTE | 2022-08-04 12:49 | SUR.HOLD ---
Report received from JUMANA Ramirez prior to transferring pt to preop holding.
[2022-08-04] MEDS: LACTATED RINGERS 1,000 ML 84 ML IV (13:09)
--- NOTE | 2022-08-04 13:28 | PM.PREOP ---
Pre-operative Note COVID-19 COVID-19 status: Negative Criteria for continued procedure: Expected advancement of disease process Interval Note History & Physical reviewed/Exam performed by Physician: Yes Changes to H&P: No
--- NOTE | 2022-08-04 13:33 | OT.IPNOTE ---
Pt not in the room and having sx, to check on the pt tomorrow for OT eval.
--- NOTE | 2022-08-04 14:02 | PT-IP ANOTE ---
Pt unavailable. Taken for surgery.
--- NOTE | 2022-08-04 14:26 | SUR.OPER ---
Lateral on a wade bag, head on pillow, gel axillary roll in place, bottom leg bent with gel pad under knee to foot, upper leg straight and supported with pillows. Upper arm supported by pillows and secured over bottom arm to padded arm board. Safety belt at hip, tape over blanket lower legs.
--- NOTE | 2022-08-04 14:57 | P.OP_ITS ---
Operative Date/Time/Diagnoses Date of procedure: 08/04/22 Time of procedure: 14:57 Pre-op diagnosis: Sacral decubitus Post-op diagnosis: same Procedure & Clinicians Procedure: Debridement of sacral decubitus with negative pressure wound VAC placement Same procedure as scheduled: Yes Indications: Sacral decubitus Surgeon: Elizabeth Rajput Click Yes if Unassisted: Yes Anesthesia Type: General Operative Notes Findings: Necrotic tissue of the sacrum predominantly superficial dermis only. A portion of the wound is skin and subcutaneous tissue no muscle, no bone. Measure of the wound is 9 cm x 5 cm at maximum points. Depth goes from 1 mm to 0.8 mm. Debrided with 10 blade, hemostasis with direct pressure. Closure Type: non-primary Specimen(s): none sent Prosthetic devices, grafts, tissues, transplants, or devices: Wound VAC Estimated Blood Loss (mL): 15 Blood products transfused: none Procedure in detail: Preop diagnosis: Sacral decubitus Postop diagnosis: Same Operative procedure: Debridement of sacral decubitus with placement of wound VAC Surgeon: Ivana Rajput MD Anesthesiologists: Isaak Dahl MD Findings: Approximately 55% of the wound is dermis affected only. The rem ainder is skin and subcutaneous tissue no muscle, no bone. Measuring 9 cm x 5 cm with maximum depth of 0.8 mm Procedure: Patient placed in lateral position. Ten blade was used to excise the necrotic tissue and remove eschar. Hemostasis achieved with direct pressure. We had good bleeding after removal of the necrotic tissue. Wound VAC was placed. Patient was awakened, extubated, taken to recovery room in stable condition. With needle, instrument, sponge counts correct Blood loss: 15 mL Specimen: None Complications: none Post-operative Condition: stable Disposition: PACU
--- NOTE | 2022-08-04 15:03 | CM.DPNOTE ---
Discharge Planning Note: This 81 year old paraplegic patient went for surgical debridement and Wound Vac placement by Dr Rajput early this afternoon. Refer to Grecia's note of 08/03/22, for recent history and discussion with involved spouse Marguerite. This DCP spoke with Marguerite this afternoon and provided update. She had chosen [facility] as first SNF choice and [facility] as 2nd. This DCP spoke with [facility] today and they said they are not able to take him, not enough skillable need. Sent referrals to [facility] in [place] (2nd choice) and also [facility] and [facility]. Patient is definitely deconditioned and has not been able to self-transfer as before. See Grecia's note if he were to return home, he has private caregivers and has had [facility]. Plan: When medically cleared, dc to an accepting SNF. Follow up with SNFs. Marcela Cason RN/DCP
[2022-08-04] MEDS: ALBUTEROL/IPRATROPIUM 3 ML AMPUL INH (15:05)
--- NOTE | 2022-08-04 17:23 | PC.NURSE ---
Patient arrived from PACU at 1615. Wound vac in place and seal, with -125 pressure. Verbalizing no pain at this time. O2 94-96% on RA. VSS. Will continue to monitor.
[2022-08-04] MEDS: SENNOSIDES 8.6 MG TABLET 17.2 MG PO (20:54)
[2022-08-04] MEDS: VANCOMYCIN 1,250 MG/250 ML PIGGYBACK 166 MG IV (20:55)
[2022-08-04] MEDS: ACETAMINOPHEN 325 MG TABLET 650 MG PO (21:10)
[2022-08-05] VITALS (7 sets, daily range): BP systolic 92–120; BP diastolic 50–67; PULSE 62–80; RESP 16–18; TEMP 35.8–36.7; O2SAT 92–96
[2022-08-05] MEDS: CEFEPIME 2 GM in SODIUM CHLORIDE 0.9% 100 ML IV ×3 (00:43→22:43)
--- NOTE | 2022-08-05 02:55 | PC.NURSE ---
Pt had a wound vac applied after wound debribement, no electrical cord connected to wound vac. Coordinator aware of the situation, unable to find electrical cord. wound vac turned off at 0250.
[2022-08-05 05:40] LABS: Add Manual Diff / Slide Review NO; Basophils Absolute Auto 0 /uL (0-100); Basophils Percent Auto 0.4 % (0-2); Eosinophils Absolute Auto 400 /uL (0-450); Eosinophils Percent Auto 4.3 % (2-4); Hematocrit 37.6 % (41-53); Hemoglobin 11.9 g/dL (13.5-17.5); Lymphocytes Absolute Auto 3200 /uL (1100-4500); Lymphocytes Percent Auto 34.3 % (25-40); Mean Corpuscular HGB Conc 31.7 % (30-36); Mean Corpuscular Hemoglobin 24.2 PG (26-34); Mean Corpuscular Volume 76.4 fL (80-100); Monocytes Absolute Auto 700 /uL (0-900); Monocytes Percent Auto 7.6 % (3-14); Neutrophils Absolute Auto 5000 /uL (1500-7000); Neutrophils Percent Auto 53.4 % (50-75); Platelet Count 394 X10^3/uL (150-400); Red Blood Cell Count 4.92 X10^6/uL (4.5-5.9); Red Cell Distribution Width 18.9 % (11.6-14.8); White Blood Cell Count 9.3 X10^3/uL (4.5-11.0)
[2022-08-05 05:54] LABS: BUN Creatinine Ratio 25.3 (6-22); Blood Urea Nitrogen 19 mg/dL (9-20); Calcium 8.3 mg/dL (8.4-10.2); Carbon Dioxide 27 mmol/L (22-32); Chloride 104 mmol/L (98-107); Estimated Glomerular Filt Rate > 60 mL/min (>60); Glucose 95 mg/dL (80-110); HEMOLYSIS < 15 (0-50); Potassium 4.2 mmol/L (3.4-5.1); Sodium 137 mmol/L (137-145)
--- NOTE | 2022-08-05 07:18 | P.PN_ITS ---
Subjective Subjective Interval history: Doing well. No chest pain or dyspnea. No sacral pain. Good appetite. Exam Vital Signs (past 8 hours): - 08/05/22 03:25 Temperature 96.6 F L Pulse Rate 80 Respiratory Rate 17 Blood Pressure 110/67 Pulse Oximetry 96 Oxygen Flow Rate 2 Oxygen Delivery Method Nasal Cannula Oxygen Flow Rate 2 Const General: cooperative and comfortable Orientation: alert and awake [facility] Head: normal to inspection Eyes General: appearance normal, both eyes and all related structures Conjunctivae: conjunctivae normal Sclera: sclerae normal Neck Neck: normal visual inspection Chest Chest: normal inspection of the chest Resp Effort & Inspection: normal respiratory effort Auscultation: clear to auscultation bilaterally Cardio Rhythm: regular rhythm Heart Sounds: S1 normal and S2 normal GI Palpation: soft and no hepatosplenomegaly Percussion: normal to percussion Skin General: no rashes or lesions noted Neuro General: patient alert and patient awake Extrem General: normal to inspection Objective Labs Result Diagrams: 08/05/22 05:06 08/05/22 05:06 Labs: Laboratory Results - last 24 hr 08/04/22 08/05/22 08/05/22 08:55 05:06 05:06 WBC 9.3 RBC 4.92 Hgb 11.9 L Hct 37.6 L MCV 76.4 L MCH 24.2 L MCHC 31.7 RDW 18.9 H Plt Count 394 Neut % (Auto) 53.4 Lymph % (Auto) 34.3 [place] % (Auto) 7.6 Eos % (Auto) 4.3 H Baso % (Auto) 0.4 Neut # (Auto) 5000 Lymph # (Auto) 3200 [place] # (Auto) 700 Eos # (Auto) 400 Baso # (Auto) 0 Sodium 137 Potassium 4.2 Chloride 104 Carbon Dioxide 27 BUN 19 Creatinine 0.75 Estimated GFR > 60 BUN/Creatinine Ratio 25.3 H Glucose 95 Calcium 8.3 L Vancomycin Trough 15.2 PFSH Medical History Chronic anticoagulation Chronic indwelling Ferguson catheter Congestive heart failure Coronary artery disease History of MT (myocardial infarction) Hyperlipidemia Hypertension Intermittent self-catheterization of bladder Pacemaker Paraplegic spinal paralysis Spinal cord injury, incomplete Surgical History History of coronary artery stent placement History of laminectomy History of right knee joint replacement Family History (Updated 08/03/22 @ 07:47 by [facility]) Father Congestive heart failure Mother Cancer Social History household members: spouse Smoking Status: Never smoker Assessment & Plan Assessment & Plan narrative: Joey Grover is an 81-year-old male CHF, MT stent x2, pacer on chronic Eliquis, HTN, HLD, CAD, history of right leg DVT incomplete spinal cord injury paraplegic (reported secondary to laminectomy in 2002 that resulted in spinal Staph infection), intermittent catheterization during day &? Ferguson nightly admitted for sacral decubitus ulcer. 1. Sacral decubitus ulcer acute, in an incomplete SCI paraplegic, chronic, present on admission and active. -Dr. Rajput ,? OR for debridement performed yesterday. Necrotic tissue appeared to be in superficial layers only. -continue cefepime. -hold myriam inhibitor AM prior to surgery, resume tomorrow. -pain management,? continue lidocaine patches, continue gabapentin -Ferguson in place?(chronic) - PT, OT after surgery -discharge planning (discharge with wound vac). -resume Eliquis. 2. UTI, associated with chronic indwelling catheter. Intermittent self catheterization secondary to spinal cord injury, acute on chronic, right-sided penile ulceration stage II, acute,? present on admission and active. -Antibiotics as noted above. -ferguson (he uses self cath and nocturnal ferguson at home) 3. Incomplete Spinal cord injury with paraplegia ( neurological function deterioration,, frequent falls), acute on chronic, present on admission and active. -patient will need likely rehab or SNF placement -PT/OT evaluation as noted above. 4. Congestive heart failure (No ECHO available), chronic, with a history of MT pacemaker on chronic anticoagulation, present on admission -no previous documentation in our system -EKG sinus rhythm rate [address] and T-wave changes -troponins negative. -discontinue tele for now. -holding Lasix in setting of some low BP. 5. Right leg edema, with erythema, acute, present on admission and improving. -history of DVT in right lower leg, recent history significant 5 falls resulting in progressive leg weakness and right leg only. -No DVT on ultrasound. 6. Hypertension essential, present on admission and stable. -continue Coreg and lisinopril. 7. Chronic low back, present on admission and stable. -continue lidocaine patches, gabapentin 8. Hyperlipidemia, present on admission and stable. -continue simvastatin changed to atorvastatin for hospital formulary. 9. Morbid obesity secondary to incomplete SCI paraplegic, acute on chronic, present on admission ?-as evidence by BMI 44.3 -dietary consult ordered regarding nutritional education and information for dietary, lifestyle, exercise, and weight changes. -the patient is at much higher risk for medical and surgical complications due to obesity as it relates to chronic illnesses:, and acute illness.? The patient's obesity increases the difficulty and complexity of medical and/or surgical interventions, management and increases the chances of poor outcome such as morbidity and mortality as well as impaired wound healing.? Code status:Full Surrogate decision maker:? Gaby's appear spouse COVID PCR:? Negative COVID vaccination:? Fully vaccinated DVT/VTE prophylaxis:? Holding patient's Eliquis, SCDs only. Resume after surgery. Disposition:? Inpatient, probable SNF upon discharge. Was previously admitted to [facility]. SW is looking for feasibility of SNF verses home with HH and wound vac. Time Spent With Patient Critical Care time: I spent a total of [] minutes of critical care time on this patient's care today; this time is exclusive of procedural time. Quality VTE Deep Vein Thrombosis/Pulmonary Embolism Present on Admission: No
[2022-08-05] MEDS: GABAPENTIN 600 MG TABLET PO ×3 (09:15→21:20)
[2022-08-05] MEDS: FUROSEMIDE 40 MG TABLET PO (09:16)
[2022-08-05] MEDS: ATORVASTATIN 20 MG TABLET 40 MG PO (09:17)
[2022-08-05] MEDS: LIDOCAINE PATCH 1 EACH ADH..PATCH TOP (09:40)
[2022-08-05] MEDS: VANCOMYCIN 1,250 MG/250 ML PIGGYBACK 166 MG IV (09:43)
--- NOTE | 2022-08-05 10:32 | DIET.CONS2 ---
Dietary Inpatient Consultation Note Admission Date: 08/02/2022 22:48 Pt s/p I&D of sacral wound with installation of wound vac. Met c pt at bedside, pt requests ONS as protein modular to help wound healing. Will send TID. Diet: 08/04/22 00:01 NPO Diet Diet Modifications: NPO Type: NPO after Midnight 08/04/22 Dinner General (Regular) Diet Diet Modifications: Enlive tid all flavors Nutrition Percent Meal Consumed 50% 08/05/22 09:52 Percent Meal Consumed 100% 08/03/22 16:00 Percent Meal Consumed 100% 08/03/22 14:00 Electronically Signed by: Catherine Penaloza 08/05/22 10:32 Clinical Dietitian [address] [address]
--- NOTE | 2022-08-05 10:56 | PC.NURSE ---
Pt A/O Denies discomfort at this time. New IV established after it was dislodged. HL RAC intact/patent. Pt continues w/wound vac in place. *wound WAS I & D, with wound vac placed. Vac is to suction w/no apparent issues. Mckee cath patent clear urine. Call light w/in reach, bed alarm on for pt safety. Continue w/plan of care.
[2022-08-05] MEDS: APIXABAN 5 MG TABLET 2.5 MG PO ×2 (11:52→21:19)
--- NOTE | 2022-08-05 16:01 | OT.IPNOTE ---
Pt now has a wound vac for his sacral wound after S/P I and D for sacral decubitis. Per hospitalist best for pt to focus on healing versus getting up for therapy at this time. Pt states prior that he gets dressed by sitting up in his wc bends over to get the clothing over his feet and then stands by pulling on the sink or kitchen sink, leans on the sink and able to pull his pants up. At times his needs to assist him to get his pants up. per pt recently purchased transfer poles to help with his mobility need at home. Hospitalist agreed best to discharge OT services at this time. Able to install trapeze for pt to assist to help move in bed and work on his BUE strengthening. At this time pt not wanting to use therapy bands for BUE exercises. No charge.
--- NOTE | 2022-08-05 17:23 | PT-IP ANOTE ---
Pt s/p I&D of sacral wound 08/04/22 and now has wound vac on. Checked with hospitalist to clarify goals and precautions for wound and stated that avoid pressure on wound and shearing. PT clarified regarding pt sitting up and stated no sitting on wound or wound vac due to pt's priority is wound healing for now and hospitalist agreed to d/c PT. informed caser up and pt. pt understood and agreed. will d/c PT.
--- NOTE | 2022-08-05 17:27 | PT.IPTN ---
Current Diagnoses Paraplegia, unspecified (08/02/22) Pressure ulcer of sacral region, unstageable (08/02/22) Surgery Performed Operation Date: 08/04/22 15:30 Actual Procedures p debrid sacral wound with wound vac application(Not Applicable) - Elizabeth Rajput MD Physical Therapy Treatment Note M2 PT-IP Current Condition Start: 08/03/22 11:52 Freq: NEEDED Status: Active Protocol: Document 08/03/22 10:45 AB (Rec: 08/03/22 12:16 AB [id number]) Physical Therapy Current Condition Current Condition Evaluation Date 08/03/22 Treatment Diagnosis sacral decubitus ulcer; generalized weakness Onset Date 08/02/22 M3 PT-IP Subjective Start: 08/03/22 11:52 Freq: NEEDED Status: Active Protocol: Document 08/05/22 17:26 AB (Rec: 08/05/22 17:27 AB [id number]) Subjective Physical Therapy Visit Type Type Administrative Note Notes Pt s/p I&D of sacral wound and now has wound vac on . Checked with hospitalist to clarify goals and precautions for wound and stated that avoid pressure on wound and shearing. PT clarified regarding pt sitting up and stated no sitting on wound or wound vac due to pt's priority is wound healing for now and hospitalist agreed to d/c PT. informed case resource manager and pt. pt understood and agreed. will d/c PT. M7 PT-IP Assessment and Plan Start: 08/03/22 11:52 Freq: NEEDED Status: Active Protocol: Document 08/05/22 17:26 AB (Rec: 08/05/22 17:27 AB [id number]) PT Summary Assessment and Plan Frequency of Treatment Frequency Of Treatment Discharge
[2022-08-05] MEDS: DOCUSATE 100 MG CAPSULE PO (21:19)
[2022-08-05] MEDS: carvediloL 12.5 MG TABLET 25 MG PO (21:20)
[2022-08-05] MEDS: SENNOSIDES 8.6 MG TABLET 17.2 MG PO (21:21)
[2022-08-06] VITALS (9 sets, daily range): BP systolic 95–126; BP diastolic 44–80; PULSE 62–75; RESP 17–22; TEMP 35.9–36.8; O2SAT 92–95
--- NOTE | 2022-08-06 08:39 | CM.DPNOTE ---
Addendum entered by Jayleen Irby, [facility] 08/07/22 14:11: ADD: Left messages for Edilia Li and [facility] admissions. Michelle at [facility] still no Addendum entered by Jayleen Irby, [facility] 08/07/22 13:02: ADD: Referral faxed to Edilia Li and Divya Reyes [place] [facility] Addendum entered by Jayleen Irby, [facility] 08/07/22 09:07: [facility] with [facility] Did not hear from Ade Fuentes 08.06.22. Plan: [facility] TuesdayAug 09- wound vac said to be secured this day by [facility] staff, attempting contact now with Annette at [facility], learned now that neither Annette or Imani will return until Tuesday Original Note: Placement efforts update [facility]- No [facility]- ? [facility]- No Speaking w/ Imani at [facility], she accepts patient clinically, however, learned late yesterday that [facility] does not have a contract currently w/[employer] or other wound vac supplier. admission would be delayed until TuesdayAug 09 while [facility] works this out w/[employer]. Meanwhile, placed call to Ade Fuentes, Director, Wound Care/Hyperbaric Medicine to discuss this case. Can patient have a wound vac secured while admitted here and discharge to SNF with this unit? At this time, patient has no other SNF option secured and therapy team recommending SNF CM team following closely. Attempting SNF placement that can accommodate wound vac and wound care needs VALDO
[2022-08-06] MEDS: APIXABAN 5 MG TABLET 2.5 MG PO ×2 (09:28→20:07)
[2022-08-06] MEDS: DOCUSATE 100 MG CAPSULE PO ×2 (09:29→20:06)
[2022-08-06] MEDS: LIDOCAINE PATCH 1 EACH ADH..PATCH TOP (09:29)
[2022-08-06] MEDS: FUROSEMIDE 40 MG TABLET PO (09:30)
[2022-08-06] MEDS: lisinopriL 10 MG TABLET PO (09:30)
[2022-08-06] MEDS: carvediloL 12.5 MG TABLET 25 MG PO ×2 (09:31→20:07)
[2022-08-06] MEDS: GABAPENTIN 600 MG TABLET PO ×3 (09:32→20:06)
[2022-08-06] MEDS: ATORVASTATIN 20 MG TABLET 40 MG PO (09:32)
[2022-08-06] MEDS: AMOXICILLIN/CLAV 875/125 MG 1 TAB PO ×2 (10:15→20:06)
--- NOTE | 2022-08-06 10:50 | PC.NURSE ---
Addendum entered by Wade Hardy R.N. 08/06/22 10:55: I'll need to go home with caregivers. Original Note: Pt a&o, follows commands, offers no overt c/o. directs care well. Switching to oral abx. Their're trying to find a place for me. If not ill need to go home with
--- NOTE | 2022-08-06 15:35 | P.PN_ITS ---
Subjective Subjective Date Patient Seen: 08/06/22 Interval history: Doing well. No chest pain or dyspnea. No sacral pain. Good appetite. Exam Vital Signs (past 8 hours): - 08/06/22 07:55 08/06/22 09:30 08/06/22 09:31 Temperature Pulse Rate 63 63 Respiratory Rate Blood Pressure 124/44 L 124/44 L Pulse Oximetry 95 Oxygen Delivery Method Nasal Cannula Oxygen Flow Rate 2 08/06/22 11:00 08/06/22 14:58 Temperature 97.7 F 97.5 F L Pulse Rate 73 62 Respiratory Rate 18 18 Blood Pressure 106/49 L 101/80 Pulse Oximetry 93 93 Oxygen Delivery Method Oxygen Flow Rate 2 0 Fraction of Inspired Oxygen 28 Oxygen Delivery Method Nasal Cannula Oxygen Flow Rate 0 Narrative Exam Narrative: General:? Patient is well developed and well nourished, in no distress at this time. HEENT:? Normocephalic, atraumatic, extraocular muscles intact, oral pharynx is clear and mucous membranes are moist. Chest:? Normal AP diameter and contour without kyphoscoliosis, no tachypnea, equal chest rise bilaterally. Lungs:? CTA b/l no wheezing rhonchi or rales. Cardio:?RRR no m/r/g. Abdomen: S NT ND. Objective Labs Result Diagrams: 08/05/22 05:06 08/05/22 05:06 [facility] Medical History Chronic anticoagulation Chronic indwelling Ferguson catheter Congestive heart failure Coronary artery disease History of IA (myocardial infarction) Hyperlipidemia Hypertension Intermittent self-catheterization of bladder Pacemaker Paraplegic spinal paralysis Spinal cord injury, incomplete Surgical History History of coronary artery stent placement History of laminectomy History of right knee joint replacement Family History (Updated 08/03/22 @ 07:47 by BOB Vela) Father Congestive heart failure Mother Cancer Social History household members: spouse Smoking Status: Never smoker Assessment & Plan Assessment & Plan narrative: Joey Grover is an 81-year-old male CHF, IA stent x2, pacer on chronic Eliquis, HTN, HLD, CAD, history of right leg DVT incomplete spinal cord injury paraplegic (reported secondary to laminectomy in 2002 that resulted in spinal Staph infection), intermittent catheterization during day &? Ferguson nightly admitted for sacral decubitus ulcer. 1. Sacral decubitus ulcer acute, in an incomplete SCI paraplegic, chronic, present on admission and active. -Dr. Rajput ,? OR for debridement performed yesterday. Necrotic tissue appeared to be in superficial layers only. -antibiotics narrowed to augmentin based on wound culture results with proteus and a group B strep. -held myriam inhibitor AM prior to surgery, now resumed -pain management,? continue lidocaine patches, continue gabapentin -Ferguson in place?(chronic) - PT, OT -discharge planning (discharge with wound vac). -resumed Eliquis. 2. UTI, associated with chronic indwelling catheter. Intermittent self catheterization secondary to spinal cord injury, acute on chronic, right-sided penile ulceration stage II, acute,? present on admission and active. -Antibiotics as noted above. -ferguson (he uses self cath and nocturnal ferguson at home) 3. Incomplete Spinal cord injury with paraplegia ( neurological function deterioration,, frequent falls), acute on chronic, present on admission and active. -patient recommended for SNF placement, awaiting approval with his wound vac currently. -PT/OT evaluation as noted above. 4. Congestive heart failure (No ECHO available), chronic, with a history of IA pacemaker on chronic anticoagulation, present on admission -no previous documentation in our system -EKG sinus rhythm rate [address] and T-wave changes -troponins negative. -discontinue tele for now. -holding Lasix in setting of some low BP. 5. Right leg edema, with erythema, acute, present on admission and improving. -history of DVT in right lower leg, recent history significant 5 falls resulting in progressive leg weakness and right leg only. -No DVT on ultrasound. 6. Hypertension essential, present on admission and stable. -continue Coreg and lisinopril. 7. Chronic low back, present on admission and stable. -continue lidocaine patches, gabapentin 8. Hyperlipidemia, present on admission and stable. -continue simvastatin changed to atorvastatin for hospital formulary. 9. Morbid obesity secondary to incomplete SCI paraplegic, acute on chronic, present on admission ?-as evidence by BMI 44.3 -dietary consult ordered regarding nutritional education and information for dietary, lifestyle, exercise, and weight changes. -the patient is at much higher risk for medical and surgical complications due to obesity as it relates to chronic illnesses:, and acute illness.? The patient's obesity increases the difficulty and complexity of medical and/or surgical interventions, management and increases the chances of poor outcome such as morbidity and mortality as well as impaired wound healing.? Code status:Full Surrogate decision maker:? Gaby's appear spouse COVID PCR:? Negative COVID vaccination:? Fully vaccinated DVT/VTE prophylaxis:? Holding patient's Eliquis, SCDs only. Resume after surgery. Disposition:? Inpatient, probable SNF upon discharge. Was previously admitted to [facility]. SW is looking for feasibility of SNF verses home with HH given wound vac. Time Spent With Patient Critical Care time: I spent a total of [] minutes of critical care time on this patient's care today; this time is exclusive of procedural time. Quality VTE Deep Vein Thrombosis/Pulmonary Embolism Present on Admission: No
[2022-08-06 15:47] LABS: Albumin 3.4 g/dL (3.5-5.0); Albumin Globulin Ratio 0.8 (1.0-2.8); Globulin 4.3 g/dL (1.7-4.1); HEMOLYSIS 25 (0-50)
[2022-08-06 17:50] LABS: Albumin 2.9 g/dL (3.5-5.0); Albumin Globulin Ratio 0.8 (1.0-2.8); Globulin 3.8 g/dL (1.7-4.1); HEMOLYSIS 18 (0-50)
[2022-08-06] MEDS: SENNOSIDES 8.6 MG TABLET 17.2 MG PO (20:07)
[2022-08-06] MEDS: ACETAMINOPHEN 325 MG TABLET 650 MG PO (20:09)
[2022-08-07] VITALS (10 sets, daily range): BP systolic 85–118; BP diastolic 40–89; PULSE 60–87; RESP 18–20; TEMP 35.9–36.8; O2SAT 92–96
[2022-08-07] MEDS: SODIUM CHLORIDE 0.9% 500 ML 1000 ML IV ×2 (01:41→22:12)
[2022-08-07] MEDS: ATORVASTATIN 20 MG TABLET 40 MG PO (09:30)
[2022-08-07] MEDS: LIDOCAINE PATCH 1 EACH ADH..PATCH TOP (09:30)
[2022-08-07] MEDS: DOCUSATE 100 MG CAPSULE PO ×2 (09:30→22:09)
[2022-08-07] MEDS: FUROSEMIDE 40 MG TABLET PO (09:31)
[2022-08-07] MEDS: AMOXICILLIN/CLAV 875/125 MG 1 TAB PO ×2 (09:31→22:09)
[2022-08-07] MEDS: APIXABAN 5 MG TABLET 2.5 MG PO ×2 (09:31→22:09)
[2022-08-07] MEDS: GABAPENTIN 600 MG TABLET PO ×3 (09:32→22:09)
[2022-08-07] MEDS: carvediloL 12.5 MG TABLET 25 MG PO (09:36)
--- NOTE | 2022-08-07 12:07 | P.PN_ITS ---
Subjective Subjective Date Patient Seen: 08/07/22 Interval history: Doing well. No chest pain or dyspnea. No sacral pain. Good appetite. Exam Vital Signs (past 8 hours): - 08/07/22 09:03 08/07/22 08:25 08/07/22 09:36 Temperature 97.9 F Pulse Rate 62 62 Respiratory Rate 18 Blood Pressure 118/89 118/89 Pulse Oximetry 95 92 Oxygen Delivery Method Nasal Cannula Oxygen Flow Rate 2 2 08/07/22 09:36 08/07/22 09:05 Temperature Pulse Rate 62 Respiratory Rate Blood Pressure 118/89 Pulse Oximetry Oxygen Delivery Method Nasal Cannula Oxygen Flow Rate Fraction of Inspired Oxygen 28 Oxygen Delivery Method Nasal Cannula Oxygen Flow Rate 2 Narrative Exam Narrative: General:? Patient is well developed and well nourished, in no distress at this time. HEENT:? Normocephalic, atraumatic, extraocular muscles intact, oral pharynx is clear and mucous membranes are moist. Chest:? Normal AP diameter and contour without kyphoscoliosis, no tachypnea, equal chest rise bilaterally. Lungs:? CTA b/l no wheezing rhonchi or rales. Cardio:?RRR no m/r/g. Abdomen: S NT ND. Objective Labs Result Diagrams: 08/05/22 05:06 08/05/22 05:06 Labs: Laboratory Results - last 24 hr 08/02/22 08/03/22 17:52 06:03 Albumin 3.4 L 2.9 L Globulin 4.3 H 3.8 Albumin/Globulin Ratio 0.8 L 0.8 L [facility] Medical History Chronic anticoagulation Chronic indwelling Ferguson catheter Congestive heart failure Coronary artery disease History of CT (myocardial infarction) Hyperlipidemia Hypertension Intermittent self-catheterization of bladder Pacemaker Paraplegic spinal paralysis Spinal cord injury, incomplete Surgical History History of coronary artery stent placement History of laminectomy History of right knee joint replacement Family History (Updated 08/03/22 @ 07:47 [facility] Father Congestive heart failure Mother Cancer Social History household members: spouse Smoking Status: Never smoker Assessment & Plan Assessment & Plan narrative: Joey Grover is an 81-year-old male CHF, CT stent x2, pacer on chronic Eliquis, HTN, HLD, CAD, history of right leg DVT incomplete spinal cord injury paraplegic (reported secondary to laminectomy in 2002 that resulted in spinal Staph infection), intermittent catheterization during day &? Ferguson nightly admitted for sacral decubitus ulcer. 1. Sacral decubitus ulcer acute, in an incomplete SCI paraplegic, chronic, present on admission and active. -Dr. Rajput ,? OR for debridement performed yesterday. Necrotic tissue appeared to be in superficial layers only. -antibiotics narrowed to augmentin based on wound culture results with proteus and a group B strep. -held myriam inhibitor AM prior to surgery, now resumed -pain management,? continue lidocaine patches, continue gabapentin -Ferguson in place?(chronic) - PT, OT -discharge planning (discharge with wound vac). -resumed Eliquis. 2. UTI, associated with chronic indwelling catheter. Intermittent self catheterization secondary to spinal cord injury, acute on chronic, right-sided penile ulceration stage II, acute,? present on admission and active. -Antibiotics as noted above. -ferguson (he uses self cath and nocturnal ferguson at home) 3. Incomplete Spinal cord injury with paraplegia ( neurological function deterioration,, frequent falls), acute on chronic, present on admission and active. -patient recommended for SNF placement, awaiting approval with his wound vac currently. -PT/OT evaluation as noted above. 4. Congestive heart failure (No ECHO available), chronic, with a history of CT pacemaker on chronic anticoagulation, present on admission -no previous documentation in our system -EKG sinus rhythm rate [address] and T-wave changes -troponins negative. -discontinue tele for now. -holding Lasix in setting of some low BP. 5. Right leg edema, with erythema, acute, present on admission and improving. -history of DVT in right lower leg, recent history significant 5 falls resulting in progressive leg weakness and right leg only. -No DVT on ultrasound. 6. Hypertension essential, present on admission and stable. -continue Coreg and lisinopril. 7. Chronic low back, present on admission and stable. -continue lidocaine patches, gabapentin 8. Hyperlipidemia, present on admission and stable. -continue simvastatin changed to atorvastatin for hospital formulary. 9. Morbid obesity secondary to incomplete SCI paraplegic, acute on chronic, present on admission ?-as evidence by BMI 44.3 -dietary consult ordered regarding nutritional education and information for dietary, lifestyle, exercise, and weight changes. -the patient is at much higher risk for medical and surgical complications due to obesity as it relates to chronic illnesses:, and acute illness.? The patient's obesity increases the difficulty and complexity of medical and/or surgical interventions, management and increases the chances of poor outcome such as morbidity and mortality as well as impaired wound healing.? Code status:Full Surrogate decision maker:? Gaby's appear spouse COVID PCR:? Negative COVID vaccination:? Fully vaccinated DVT/VTE prophylaxis:? Holding patient's Eliquis, SCDs only. Resume after sutton rgery. Disposition:? Inpatient, probable SNF upon discharge. Was previously admitted to [facility]. SW is looking for feasibility of SNF verses home with HH given wound vac. Time Spent With Patient Critical Care time: I spent a total of [] minutes of critical care time on this patient's care today; this time is exclusive of procedural time. Quality VTE Deep Vein Thrombosis/Pulmonary Embolism Present on Admission: No
[2022-08-07] MEDS: ACETAMINOPHEN 325 MG TABLET 650 MG PO (14:52)
[2022-08-07] MEDS: SENNOSIDES 8.6 MG TABLET 17.2 MG PO (22:08)
[2022-08-07] MEDS: SODIUM CHLORIDE 0.9% FLUSH 10 ML IV (22:08)
[2022-08-08] VITALS (9 sets, daily range): BP systolic 90–118; BP diastolic 52–57; PULSE 61–63; RESP 16–20; TEMP 35.7–36.8; O2SAT 93–95
[2022-08-08] MEDS: AMOXICILLIN/CLAV 875/125 MG 1 TAB PO ×2 (09:23→20:13)
[2022-08-08] MEDS: FUROSEMIDE 40 MG TABLET PO (09:23)
[2022-08-08] MEDS: carvediloL 12.5 MG TABLET 25 MG PO ×2 (09:23→20:17)
[2022-08-08] MEDS: DOCUSATE 100 MG CAPSULE PO ×2 (09:23→20:14)
[2022-08-08] MEDS: ATORVASTATIN 20 MG TABLET 40 MG PO (09:23)
[2022-08-08] MEDS: APIXABAN 5 MG TABLET 2.5 MG PO ×2 (09:24→20:13)
[2022-08-08] MEDS: LIDOCAINE PATCH 1 EACH ADH..PATCH TOP (09:24)
[2022-08-08] MEDS: GABAPENTIN 600 MG TABLET PO ×3 (09:24→20:13)
[2022-08-08] MEDS: SODIUM CHLORIDE 0.9% FLUSH 10 ML IV ×2 (09:29→20:15)
--- NOTE | 2022-08-08 14:04 | P.PN_ITS ---
Subjective Subjective Date Patient Seen: 08/08/22 Interval history: Doing well. No chest pain or dyspnea. No sacral pain. Good appetite. Not complaining of any fever chills nausea vomiting or diaphoresis. Exam Vital Signs (past 8 hours): - 08/08/22 08:25 08/08/22 09:14 08/08/22 09:23 Temperature 96.6 F L Pulse Rate 61 61 63 Respiratory Rate 16 Blood Pressure 90/52 L 90/56 L Pulse Oximetry 95 Oxygen Delivery Method Oxygen Flow Rate 2 08/08/22 09:36 Temperature Pulse Rate Respiratory Rate Blood Pressure Pulse Oximetry Oxygen Delivery Method Nasal Cannula Oxygen Flow Rate Fraction of Inspired Oxygen 28 Oxygen Delivery Method Nasal Cannula Oxygen Flow Rate 2 Narrative Exam Narrative: General:? Patient is well developed and well nourished, in no distress at this time. HEENT:? Normocephalic, atraumatic, extraocular muscles intact, oral pharynx is clear and mucous membranes are moist. Chest:? Normal AP diameter and contour without kyphoscoliosis, no tachypnea, equal chest rise bilaterally. Lungs:? CTA b/l no wheezing rhonchi or rales. Cardio:?RRR no m/r/g. Abdomen: S NT ND. Objective Labs Result Diagrams: 08/05/22 05:06 08/05/22 05:06 [facility] Medical History Chronic anticoagulation Chronic indwelling Ferguson catheter Congestive heart failure Coronary artery disease History of MA (myocardial infarction) Hyperlipidemia Hypertension Intermittent self-catheterization of bladder Pacemaker Paraplegic spinal paralysis Spinal cord injury, incomplete Surgical History History of coronary artery stent placement History of laminectomy History of right knee joint replacement Family History (Updated 08/03/22 @ 07:47 by Gabbi Purcell [facility]) Father Congestive heart failure Mother Cancer Social History household members: spouse Smoking Status: Never smoker Assessment & Plan Assessment & Plan narrative: 1. Sacral decubitus ulcer acute, in an incomplete SCI paraplegic, chronic, present on admission and active. -Dr. Rajput ,? OR for debridement performed couple of days ago. Necrotic tissue appeared to be in superficial layers only. -antibiotics narrowed to augmentin based on wound culture results with proteus and a group B strep. -held myriam inhibitor AM prior to surgery, now resumed -pain management,? continue lidocaine patches, continue gabapentin -Ferguson in place?(chronic) - PT, OT -discharge planning (discharge with wound vac -will be transferred for wet-to-dry dressing and wound VAC will start at the SNF, paperwork to be ready for this). -resumed Eliquis. 2. UTI, associated with chronic indwelling catheter. Intermittent self catheterization secondary to spinal cord injury, acute on chronic, right-sided penile ulceration stage II, acute,? present on admission and active. -Antibiotics as noted above. -ferguson (he uses self cath and nocturnal ferguson at home) 3. Incomplete Spinal cord injury with paraplegia ( neurological function deterioration,, frequent falls), acute on chronic, present on admission and active. -patient recommended for SNF placement, awaiting approval with his wound vac currently. -PT/OT evaluation as noted above. 4. Congestive heart failure (No ECHO available), chronic, with a history of MA pacemaker on chronic anticoagulation, present on admission -no previous documentation in our system -EKG sinus rhythm rate [address] and T-wave changes -troponins negative. -discontinue tele for now. -holding Lasix in setting of some low BP. 5. Right leg edema, with erythema, acute, present on admission and improving. -history of DVT in right lower leg, recent history significant 5 falls resulting in progressive leg weakness and right leg only. -No DVT on ultrasound. 6. Hypertension essential,? present on admission and stable. -continue Coreg and lisinopril. 7. Chronic low back, present on admission and stable. -continue lidocaine patches, gabapentin 8. Hyperlipidemia,? present on admission and stable. -continue simvastatin changed to atorvastatin for hospital formulary. 9. Morbid obesity secondary to incomplete SCI paraplegic, acute on chronic, present on admission ?-as evidence by BMI 44.3 -dietary consult ordered regarding nutritional education and information for dietary, lifestyle, exercise, and weight changes. -the patient is at much higher risk for medical and surgical complications due to obesity as it relates to chronic illnesses:, and acute illness.? The patient's obesity increases the difficulty and complexity of medical and/or surgical interventions, management and increases the chances of poor outcome such as morbidity and mortality as well as impaired wound healing.? Code status:Full Surrogate decision maker:? Gaby who is spouse COVID PCR:? Negative COVID vaccination:? Fully vaccinated DVT/VTE prophylaxis:? Eliquis Resumed after surgery. Disposition:? Inpatient, probable SNF upon discharge. Was previously admitted to [facility]. SW is looking for feasibility of SNF verses home with HH given wound vac. Time Spent With Patient Critical Care time: I spent a total of [] minutes of critical care time on this patient's care today; this time is exclusive of procedural time. Quality VTE Deep Vein Thrombosis/Pulmonary Embolism Present on Admission: No
[2022-08-08] MEDS: ACETAMINOPHEN 325 MG TABLET 650 MG PO (14:51)
--- NOTE | 2022-08-08 15:31 | CM.DPC ---
DCP/Continued: Reviewed chart. Patient is LOS day#6 and medically stable for discharge. [employer] attempting to find patient SNF. Received call this AM from Edilia Li whom report that patient has no more SNF Medicare days to use? Placed call to [facility] and spoke with Annette ph# [phone] ext [phone] she reports that she will check days again in AM. Also she reports that they order there own wound vacs. They do not use [facility]. Met with patient and informed him that if he has no SNF days left the next option would be home with home health. Patient reports that this is absolutely fine with him. Patient has all needed DME includeing carlos lift and resides with spouse. Patient believes he is on service with [facility] but that will need to be confirmed once we know if he is going home with vac or SNF. [facility] form left for provider to complete if patient goes home. Contact at [facility] is Jacky Sauer ph# [phone]. If [facility] can accept they will coordinate all wound care arrangments through different agency. P: D/C tomorrow either home with HH and wound vac or SNF with wound vac. He will need BLS for transport either way. GILDA Hwang
[2022-08-08] MEDS: SENNOSIDES 8.6 MG TABLET 17.2 MG PO (20:13)
[2022-08-09 04:00] VITALS: BP 90/54; PULSE 66; RESP 20; TEMP 36.3; O2SAT 93
[2022-08-09] MEDS: DOCUSATE 100 MG CAPSULE PO (10:40)
[2022-08-09] MEDS: GABAPENTIN 600 MG TABLET PO (10:40)
[2022-08-09] MEDS: ATORVASTATIN 20 MG TABLET 40 MG PO (10:40)
[2022-08-09] MEDS: LIDOCAINE PATCH 1 EACH ADH..PATCH TOP (10:40)
[2022-08-09] MEDS: FUROSEMIDE 40 MG TABLET PO (10:41)
[2022-08-09] MEDS: SODIUM CHLORIDE 0.9% FLUSH 10 ML IV (10:41)
[2022-08-09] MEDS: AMOXICILLIN/CLAV 875/125 MG 1 TAB PO (10:41)
[2022-08-09] MEDS: APIXABAN 5 MG TABLET 2.5 MG PO (10:41)
--- NOTE | 2022-08-09 10:56 | P.DS_ITS ---
History of Present Illness History of Present Illness Chief complaint: pressure sore Narrative: Joey Grover is an 81-year-old male CHF, NE stent x2, pacer on chronic Eliquis, HTN, HLD, CAD, history of right leg DVT incomplete spinal cord injury paraplegic (reported secondary to laminectomy in 2002 that resulted in spinal Staph infection), intermittent catheterization during day & Ferguson nightly patient was transported following home nurse visit evaluation of a sacral decubitus ulcer. Patient at he had been using walker or crutches and was able to perform independent ADLs until approximately 3-4 months ago when he started to have increasing bilateral lower leg weakness. Patient admitted to the [facility] following 5 serious falls, resulting in worsening weakness, worsening right leg pain, losing the ability to perform ADLs and become completely wheelchair-bound. Patient reports that he was treated for right leg edema started Lasix and then discharged to [facility] and resided in [facility] until he ran out of coverage for insurance and then was sent home he was unable to function home CAD continuing worsening weakness-the patient then went [facility] was not admitted but remained in the ED for approximately 10 days where he was boarding in the [facility] ED due to lack of placement since July 20, 2022 Diagnosed with sacral wound 11.5 x 8 x 0.1 unstageable pressure injury covering the sacral region bilateral buttocks, right penile shaft lesion wound likely associated with chronic indwelling Ferguson catheter use at bedtime, and a left lateral malleolus wound stage 2, patient was sent home on Augmentin discharged scheduled follow-up appointment [id number]. When patient was examined by home health nurse she immediately called 911 for transport to [facility]. He has no specific complaints and has no specific pain with minimal sensation to the area of the sacrum and unable to walk due to nerve injury.? He does not report fevers, cough, chills, abdominal pain, vomiting, body aches, chills, diarrhea, blood in urine or stool, does have dysuria, notes chronic low back pain, denies chest pain, shortness in breath. At the time of admit patient's vitals are stable temp 98.2?, BP 131/58, HR 76, R 18, O2 saturation 95% on room air-the patient states that he does not require oxygen at home. WBC 12.3, neutrophils 7400, eos 500, baso 200, H&H 12.9/40, MCV 77.4, MCH 24.7, platelets 407, bicarb 33, alk-phos 148, INR stable 1.3, lactate, lipase, procalcitonin COVID are all negative. Patient's urinalysis positive for nitrates and bacteria culture pending, sofa score 0, EKG sinus rhythm rate of [address] and T-wave changes. CT of abdomen pelvis demonstrate posterior sacral ulceration with cellulitis changes and inflammation extending to the region of the coccyx and lower sacral area. Patient admitted for sacral decubitus ulcer, UTI. Ferguson was placed on admit today in the ED. Dr. Rajput to consult-plan to take to the OR for debridement Discharge Providers Provider Date of admission: 08/02/22 22:48 Discharge Date: 08/09/22 Primary care physician: George Luna DO Consults: 08/02/22 17:37 Consult to PRODUCTION CLERKS SUPERVISOR - Cylinder Steamer Stat Comment: 08/03/22 04:00 Consult to Dietitian, Adult Routine Comment: Reason For Exam: Decubitus ulcer BMI 44.3 08/03/22 04:01 Consult to Occupational Therapy Evaluate & Treat Comment: Decubitus ulcer, incomplete paraplegic Physician Instructions: Evaluate and treat Consult to Physical Therapy Evaluate & Treat Comment: Decubitus ulcer, incomplete paraplegic Physician Instructions: Evaluate and Treat Consult to Physician Routine Comment: Consulting Provider: Elizabeth Rajput Reason for consultation: Sacral decubitus ulcer Has provider been notified: Yes 08/03/22 04:11 Consult to Wound Care Urgent Comment: Sacral decubiti, right penile shaft wound, rt palomares Consulting Provider: [facility] Discharge Diagnosis: 1. Sacral decubitus ulcer acute, in an incomplete SCI paraplegic, chronic, present on admission and active. -Dr. Rajput ,? OR for debridement performed couple of days ago. Necrotic tissue appeared to be in superficial layers only. -antibiotics narrowed to augmentin based on wound culture results with proteus and a group B strep. -pain management,? continue lidocaine patches, continue gabapentin -Ferguson in place?(chronic) - Continue PT, OT -discharge patient is being transferred to [facility] in [place] on a regular diet, patient's wound VAC will be removed and changed to a wet-to-dry dressing until new wound VAC be placed at [facility] (which has already been arranged) . -resumed Eliquis. 2. UTI, associated with chronic indwelling catheter. Intermittent self cathete rization secondary to spinal cord injury, acute on chronic, right-sided penile ulceration stage II, acute,? present on admission and active. -Antibiotics as noted above. -ferguson (he uses self cath and nocturnal ferguson at home) 3. Incomplete Spinal cord injury with paraplegia ( neurological function d eterioration,, frequent falls), acute on chronic, present on admission and active. -patient discharged to SNF -PT/OT evaluation completed 4. Congestive heart failure (No ECHO available), chronic, with a history of NE pacemaker on chronic anticoagulation, present on admission -no previous documentation in our system -EKG sinus rhythm rate [address] and T-wave changes -troponins negative. -held Lasix due to chronically low BP, mild right lower leg edema noted unchanged from admit- may continue based edema/fluid overload . 5. Right leg edema, with erythema, acute, present on admission and improving.- erythema resolved -erythema resolved no sign lower extremity wounds, edema nonpitting +1 appears chronic for patient's baseline s/p knee surgery. -patient reported history of DVT in right lower leg, recent history significant 5 falls resulting in progressive leg weakness and right leg only. -No DVT on ultrasound. 6. Hypertension essential,? present on admission and stable. -continue Coreg and lisinopril. 7. Chronic low back, present on admission and stable. -continue lidocaine patches, gabapentin 8. Hyperlipidemia,? present on admission and stable. -continue simvastatin changed to atorvastatin for hospital formulary. 9. Morbid obesity secondary to incomplete SCI paraplegic, acute on chronic, present on admission ?-as evidence by BMI 44.3 -dietary consult ordered regarding nutritional education and information for dietary, lifestyle, exercise, and weight changes. -the patient is at much higher risk for medical and surgical complications due to obesity as it relates to chronic illnesses:, and acute illness.? The patient's obesity increases the difficulty and complexity of medical and/or surgical interventions, management and increases the chances of poor outcome such as morbidity and mortality as well as impaired wound healing.? Code status:Full Surrogate decision maker:? Gaby who is spouse COVID PCR:? Negative Hospital Course: Joey Palacios is an 81-year-old male admitted for an acute sacral decubitus u lcer, and UTI -Dr. Rajput took to the OR for debridement, Necrotic tissue appeared to be in superficial layers only. Placed on augmentin based on wound culture results with proteus and a group B strep and coverage of UTI, continued. Patient was placed on a wound VAC, which will be removed, wet-to-dry dressing to be applied for transport to [facility] in [place] for watermelon inspector wound care. Continued chronic ferguson use secondary to paraplegia, Status at Discharge Cognitive/behavioral status at discharge: oriented Functional status at discharge: bed bound Overall status at discharge: other (Patient requires long-term wound care management, as well as physical therapy due to decreased mobility and falls secondary to deteriorating paraplegic.) Time Spent with Patient Time spent: Less than 30 minutes Exam Vital Signs (past 8 hours): - 08/09/22 04:00 Temperature 97.3 F L Pulse Rate 66 Respiratory Rate 20 Blood Pressure 90/54 L Pulse Oximetry 93 Oxygen Flow Rate 2 Fraction of Inspired Oxygen 28 Oxygen Delivery Method Nasal Cannula Oxygen Flow Rate 2 Narrative Exam Narrative: General:?Well-nourished well-developed elderly male, in no acute distress. HEENT:? Moist mucous membranes, normal sclera with reactive pupils, Neck:? No JVD, supple Respiratory:? Lungs all [place] clear to auscultation. Cardiac:? Pacemaker in the left upper chest, Regular rate and rhythm no murmurs no bruits Abdomen:? Soft, obese, nontender, good bowel tones, no flank pain-indwelling Ferguson in place Skin:? Large sacral decubitus ulcer with wound vac in place, right-sided penile lesion- healing, right testicle (tennis ball size) is significantly larger (non tender no wound present, than left (golfball),? Left? lower leg nontender, noted edema mild non-pitting +1, no erythema, slighthly warmer to touch, than right pedal pulses intact, sensation intact, right lower leg no edema present, skin is cool to touch pale, pulses intact and sensation. Neurologic:? Minimal sensation from lower abdomen down.? Significant weakness and unable to bear weight with lower extremities, onset 3-4 months ago following significant multiple falls. Extremities:? muscle atrophy, well perfused Psych:? Cooperative, appropriate insight and affect Objective Labs Result Diagrams: 08/05/22 05:06 08/05/22 05:06 [facility] Medical History Chronic anticoagulation Chronic indwelling Ferguson catheter Congestive heart failure Coronary artery disease History of NE (myocardial infarction) Hyperlipidemia Hypertension Intermittent self-catheterization of bladder Pacemaker Paraplegic spinal paralysis Spinal cord injury, incomplete Surgical History History of coronary artery stent placement History of laminectomy History of right knee joint replacement Family History Father Congestive heart failure Mother Cancer Social History household members: spouse Smoking Status: Never smoker Discharge Assessment & Plan Assessment and Plan Assessment: 1. Sacral decubitus ulcer acute, in an incomplete SCI paraplegic, chronic, present on admission and active. Plan of Treatment: Transfer to [facility] for continued chronic wound care/wound VAC -Dr. Rajput S/P I&D -Continue augmentin based on wound culture results with proteus and a group B s trep. -pain management,? continue lidocaine patches, continue gabapentin -Ferguson in place?(chronic) - Continue PT, OT Discharge Plan Discharge Plan Patient Disposition: SNF Other facility: [facility] Provider Discharge Comment: follow up with wound care clinic. No need for gen surg follow up Discharge orders & Medications Prescriptions: New lidocaine 5 % Adhesive Patch,Medicated 1 ea topical DAILY Qty: 30 0RF docusate sodium 100 mg Capsule 100 mg PO BID Qty: 60 0RF amoxicillin-pot clavulanate 875-125 mg Tablet 1 tab PO BID Qty: 8 0RF Continued carvedilol [Coreg] 25 MG tablet 25 mg PO BID Qty: 0 lidocaine 5 % adhesive patch,medicated 1 patch transdermal Q12H PRN (Reason: Pain, Mild) albuterol sulfate [ProAir HFA] 90 mcg/actuation HFA aerosol inhaler 1 puff INHALATION PRN PRN (Reason: Wheezing) atorvastatin 40 mg tablet 40 mg PO DAILY Eliquis 2.5 mg tablet 2.5 mg PO BID gabapentin 600 mg tablet 600 mg PO TID Discontinued furosemide 40 mg tablet 40 mg PO DAILY Follow up/Referrals: Yusef Dawn MD [Physician] - George Luna DO [Primary Care Provider] - Diet/Activity/Treatments Catheter: 2-way Ferguson Visit Report/Discharge Packet Stand Alone Forms: Patient Portal/API Discharge Data Primary Care Provider: George Luna Quality VTE Deep Vein Thrombosis/Pulmonary Embolism Present on Admission: No
--- NOTE | 2022-08-09 12:55 | CM.DPC ---
DCP Continued: FUNMI spoke with Imani at [facility] in [place], they had some issues over the weekend getting the needed wound Vac however it has been taken care of an should arrive tonight by 7pm. Patient is going to be transported to [facility] via BLS with his wounds covered in wet to dry dressings until wound vac can be placed this evening. PASSR, MED list, DC summary all faxed to Imani and placed into patients chart to go with patient at [facility]. FUNMI talked with [facility] and set up transport time for [id number]. CM spoke with the patient and did let him know there could be a bill for S transport. However CM team did get Medical necessity form filled out and signed by and have a copy scanned into the chart. Patient updated about DC plan and he stated he was okay with this plan. FUNMI also called patients to give her an update at his request and she stated understanding. CM team will follow to assist with any new DC planning needs that may arise. Amairs Cuello RNbundler
[2022-08-09 13:21] LABS: COVID19 -Nasal RAPID Negative (Negative)
--- NOTE | 2022-08-09 15:35 | PC.NURSE ---
Addendum entered by Ruma Harper R.N. 08/09/22 18:56: [facility] called this afternoon and asked what the settings were on the wound vac here and how often to change. This RN phoned back to give them the message but they did not answer. Original Note: [facility], he left via bsl. Wound vac dressing taken off and dressing changed to a wet to dry with cover site over. Patient was alert and oriented x4, lidocaine patch attached to l.lower back. Patient to [facility].
== END 2022-08-09 13:40 | DRG 571 ==
LOC: ED 19:01 → AC 22:49
PROVIDERS: Emergency Medicine; Internal Medicine; Surgery; Admitting Provider Nurse Practitioner Family; Emergency Provider Emergency Medicine; Family Provider Family Medicine; PCP Family Medicine; Referring Provider Emergency Medicine; Visit Provider Nurse Practitioner Family
PROC: 0JB70ZZ Excision of Back Subcutaneous Tissue and Fascia, Open Approach (ICD-10-PCS; principal; 2022-08-04 15:30)
DX: L89.150 Pressure ulcer of sacral region, unstageable (principal); G82.22 Paraplegia, incomplete; I96 Gangrene, not elsewhere classified; T83.511A Infection and inflammatory reaction due to indwelling urethral catheter, initial encounter; Z68.41 Body mass index [BMI] 40.0-44.9, adult; G89.29 Other chronic pain; M54.50 Low back pain, unspecified; E78.5 Hyperlipidemia, unspecified; E66.01 Morbid (severe) obesity due to excess calories; I50.9 Heart failure, unspecified; I11.0 Hypertensive heart disease with heart failure; B96.4 Proteus (mirabilis) (morganii) as the cause of diseases classified elsewhere; B95.1 Streptococcus, group B, as the cause of diseases classified elsewhere; I25.10 Atherosclerotic heart disease of native coronary artery without angina pectoris; Z86.718 Personal history of other venous thrombosis and embolism; Z91.81 History of falling; Z20.822 Contact with and (suspected) exposure to COVID-19; Z95.0 Presence of cardiac pacemaker; Z79.01 Long term (current) use of anticoagulants; Z95.5 Presence of coronary angioplasty implant and graft
CPT/HCPCS: 36415; 71045; 73502; 73590; 73620; 73701; 74177; 80048; 80053; 80076; 80202; 81001; 82962; 83605; 83690; 83735; 83880; 84145; 84443; 84484; 85025; 85610; 85651; 85730; 86140; 87040; 87070; 87075; 87077; 87086; 87147; 87186; 87205; 87635; 93005; 93971; 94760; 96365; 96366; 96367; 96368; 97163; 99284; 99285; C9803; J0330; J0692; J2405; J2704; J3010; Q9967

== ENCOUNTER 2022-11-02 14:27 | Emergency (ER) | payer MEDICARE, OTHER, SELFPAY ==
[2022-08-02 23:17] VITALS: BMI 45.3
[2022-11-02] VITALS (15 sets, daily range): BP systolic 131–172; BP diastolic 73–93; PULSE 61–74; RESP 22; TEMP 36.7; O2SAT 92–98; BMI 44.9
--- NOTE | 2022-11-02 17:14 | DI.US.S_ITS ---
PROCEDURE: US PERIP VENOUS LOW EXTREM BI INDICATIONS: leg swelling TECHNIQUE: Real-time imaging, as well as color and pulse Doppler interrogation, were performed of the deep veins of both legs from the inguinal ligament to the popliteal fossa. COMPARISON: [facility], , [facility] VENOUS LOW EXTREM RT, 08/03/2022, 7:48. FINDINGS: Right: The common femoral, femoral and popliteal veins are normally compressible, and free of intraluminal thrombus. Color and pulse Doppler demonstrate normal phasic intravascular flow. There is normal augmentation response to distal compression maneuver. Left: The common femoral, femoral and popliteal veins are normally compressible, and free of intraluminal thrombus. Color and pulse Doppler demonstrate normal phasic intravascular flow. There is normal augmentation response to distal compression maneuver. IMPRESSION: Negative for deep venous thrombosis. Dictated by: Austyn Escamilla M.D. on 11/02/2022 at 17:07 Approved by: Austyn Escamilla M.D. on 11/02/2022 at 17:08
--- NOTE | 2022-11-02 18:05 | ED_ITS ---
HPI - Extremity Problem <Bella Perez PA-C - Last Filed: 11/02/22 18:50> General Chief complaint: Extremity Problem,Nontraumatic Stated complaint: Rt Leg Swelling Time Seen by Provider: 11/02/22 14:35 Source: patient and EMS Mode of arrival: EMS History of Present Illness HPI Narrative: 82-year-old male with past medical history spinal cord injury, decubitus ulcer of the sacral region, CHF, AK stent x2, pacer on chronic Eliquis, hypertension, hyperlipidemia, CAD, history of right leg DVT sent to the ED by his home health nurse due to concerns of lack of patient mobility and safety. Patient was hospitalized in July 2022 for the decubitus ulcer, was discharged to [facility] which is a SNF. Patient was discharged from [facility] back home due to running out of SNF funds. Patient was set up with a home health aide at home, who sent him to the ED today for further evaluation due to concerns of lack of mobility and safety. Patient is wheelchair-bound due to a incomplete spinal cord injury, says he can transfer from the bed to the wheelchair successfully and has been doing that at [facility] daily. Yesterday, patient states that he overload that his wheelchair breaks had not been applied, he tried to transfer into the wheelchair, which sent the wheelchair rolling away from him, causing him to collapse down to the floor. Patient did not hit his head. Patient denies any injuries from that incident. Patient lives in a multilevel home, has chair lives that takes him from the garage to the main level, and another chair lift the take some from the main level up to the 2nd floor where his bed is. Patient feels comfortable navigating this. Patient states he has no new symptoms today. Patient denies fever, chills, chest pain, shortness of breath, nausea, vomiting, abdominal pain, dysuria, lightheadedness, dizziness, syncope. Patient's home health aide was also concerned about patient's leg swelling, however patient states that his baseline is that his right leg is more swollen than the left and he has no new leg pain. Related Data Home Medications Medication Instructions Recorded Confirmed carvedilol 25 mg tablet (Coreg) 25 mg PO BID ##0 02/29/12 08/03/22 albuterol sulfate 90 mcg/actuation 1 puff inhalation PRN PRN Wheezing 08/03/22 08/03/22 aerosol inhaler (ProAir HFA) apixaban 2.5 mg tablet (Eliquis) 2.5 mg PO BID 08/03/22 08/03/22 atorvastatin 40 mg tablet 40 mg PO DAILY 08/03/22 08/03/22 gabapentin 600 mg tablet 600 mg PO TID 08/03/22 08/03/22 lidocaine 5 % topical patch 1 patch transdermal Q12H PRN Pain, 08/03/22 08/03/22 Mild Previous Rx's Medication Instructions Recorded amoxicillin 875 mg-potassium 1 tab PO BID #8 tabs 08/09/22 clavulanate 125 mg tablet docusate sodium 100 mg capsule 100 mg PO BID #60 caps 08/09/22 lidocaine 5 % topical patch 1 ea topical DAILY #30 ea 08/09/22 Allergies Allergy/AdvReac Type Severity Reaction Status Date / Time No Known Drug Allergies Allergy Verified 08/02/22 17:38 Review of Systems <Bella Perez PA-C - Last Filed: 11/02/22 18:50> Review of Systems ROS Unobtainable: All systems reviewed & are unremarkable except as noted in HPI and below Constitutional Constitutional: Denies chills, Denies fatigue, Denies fever(s), Denies frequent falls, Denies lethargy and Denies weakness Eyes Eyes: Denies change in vision, Denies eye discharge, Denies irritation and Denies loss of vision ENT Ears, Nose, Mouth, and Throat: Denies change in voice, Denies dizziness, Denies neck pain, Denies sore throat and Denies throat swelling Cardiovascular Cardiovascular: Denies chest pain, Denies irregular heart rhythm, Denies lightheadedness, Denies palpitations, Denies dyspnea, Denies dyspnea on exertion and Denies orthopnea Respiratory Respiratory: Denies cough, Denies dyspnea, Denies dyspnea on exertion and Denies wheezing Gastrointestinal Gastrointestinal: Denies abdominal pain, Denies change in bowel habits, Denies diarrhea, Denies nausea and Denies vomiting Genitourinary Genitourinary: Denies hematuria, Denies flank pain, Denies urinary incontinence and Denies urinary urgency Musculoskeletal Musculoskeletal: Denies back pain, Denies muscle weakness, Denies neck pain, Denies numbness and Denies tingling Comments: wheelchair bound Integumentary/Breasts Skin/Breast: Denies pruritus, Denies erythema, Denies rash and Denies wounds Neurologic Neurologic: Denies behavioral changes, Denies confusion, Denies dizziness, Denie s frequent falls, Denies loss of vision, Denies numbness, Denies tingling and Denies weakness Psychiatric Psychiatric: Denies anxiety, Denies behavioral changes, Denies confusion, Denies depression, Denies homicidal ideation and Denies suicidal ideation Endocrine Endocrine: Denies fatigue, Denies flushing and Denies palpitations Hematologic/Lymphatic Hematologic/Lymphatic: Denies easy bruising Allergic/Immunologic Allergic/Immunologic: Denies urticaria, Denies throat swelling and Denies wheezing Patient History <Bella Perez PA-C - Last Filed: 11/02/22 18:50> Medical History Chronic anticoagulation Chronic indwelling Mckee catheter Congestive heart failure Coronary artery disease History of AK (myocardial infarction) Hyperlipidemia Hypertension Intermittent self-catheterization of bladder Pacemaker Paraplegic spinal paralysis Spinal cord injury, incomplete Surgical History History of coronary artery stent placement History of laminectomy History of right knee joint replacement Family History Father Congestive heart failure Mother Cancer Social History household members: spouse Smoking Status: Never smoker Smoking Status: Never smoker Substance Use Type: does not use Exam <Bella Perez PA-C - Last Filed: 11/02/22 18:50> Narrative Exam Narrative: Const General:?cooperative, healthy appearing and comfortable [facility] Head:?normal to inspection Ears:?hearing grossly normal bilaterally Nose:?external nose normal Face and sinus:?normal facial exam and sinuses nontender Mouth:?oral mucosae normal Throat:?posterior oropharynx normal Eyes General:?appearance normal, both eyes and all related structures Neck Neck:?normal visual inspection and no lymphadenopathy noted Resp Effort & Inspection:?normal respiratory effort Auscultation:?clear to auscultation bilaterally Cardio Rate:?regular rate Rhythm:?regular rhythm Integumentary 5 cm x 5 cm grade 3 sacral decubitus ulcer with no purulence, slight serous discharge. Wound appears to have been well taken care of and recently dressed. Musculoskeletal Right leg appears slightly more swollen than the left, which is baseline per patient. Neuro General:?patient alert, patient awake and patient oriented x3 Initial Vital Signs Initial Vital Signs: Vital Signs Temperature 98.1 F 11/02/22 14:41 Pulse Rate 74 11/02/22 14:41 Respiratory Rate 22 11/02/22 14:41 Blood Pressure 131/73 11/02/22 14:41 Pulse Oximetry 93 11/02/22 14:41 Oxygen Delivery Method Room Air 11/02/22 14:41 <Star Walker DO - Last Filed: 11/02/22 18:51> Initial Vital Signs Initial Vital Signs: Vital Signs Temperature 98.1 F 11/02/22 14:41 Pulse Rate 74 11/02/22 14:41 Respiratory Rate 22 11/02/22 14:41 Blood Pressure 131/73 11/02/22 14:41 Pulse Oximetry 93 11/02/22 14:41 Oxygen Delivery Method Room Air 11/02/22 14:41 Course <Bella Perez PA-C - Last Filed: 11/02/22 18:50> Orders Ordered: ED Orders 11/02/22 16:41 Consult to MOTOR AND CHASSIS INSPECTOR - Automatic Driller And Reamer Stat 11/02/22 17:14 US periph venous low extrem bi Stat Vital Signs Vital signs: Vital Signs - 8 hr 11/02/22 14:41 11/02/22 15:51 Temperature 98.1 F Pulse Rate 74 Pulse Rate [Right Dorsalis Pedis] 63 Respiratory Rate 22 Blood Pressure 131/73 Pulse Oximetry 93 Oxygen Delivery Method Room Air <DO Yari Fernandes Last Filed: 11/02/22 18:51> Orders Ordered: ED Orders 11/02/22 16:41 Consult to MOTOR AND CHASSIS INSPECTOR - Automatic Driller And Reamer Stat 11/02/22 17:14 US periph venous low extrem bi Stat Vital Signs Vital signs: Vital Signs - 8 hr 11/02/22 14:41 11/02/22 15:51 Temperature 98.1 F Pulse Rate 74 Pulse Rate [Right Dorsalis Pedis] 63 Respiratory Rate 22 Blood Pressure 131/73 Pulse Oximetry 93 Oxygen Delivery Method Room Air MDM - Extremity (Nontraumatic) <FARIDEH Valadez Last Filed: 11/02/22 18:50> MDM Narrative Medical decision making narrative: 82-year-old male with past medical history spinal cord injury, decubitus ulcer of the sacral region, CHF, AK stent x2, pacer on chronic Eliquis, hypertension, hyperlipidemia, CAD, history of right leg DVT sent to the ED by his home health nurse due to concerns of lack of patient mobility and safety. Given no new symptoms, will rule out DVT due to history of DVTs. Ultrasound Doppler of the lower extremities shows no DVTs. The ulcer seems to be well cared for, no indication for further intervention at this time other than regular dressing changes. Patient has been stable throughout the ED stay. Social work was involved, patient and patient's feel comfortable with patient returning home with some extra home help that social work has arranged. BLS transport arranged to take patient home. ED return precautions were discussed with patient. Patient verbalized understanding. Medical records reviewed: Yes Discharge Plan Departure Patient Disposition: Home Clinical Impression: Leg swelling Instructions: DI for Leg Pain Activity Restrictions/Additional Instructions: You were evaluated in the ED today for leg swelling. Your ultrasound did not show any DVTs. Your back ulcers seems to be well cared for and healing. Please continue regular dressing changes and care. Social work was involved and they have arranged for more in-home help for you. BLS will transport you back home. Return to the ED if you experience any chest pain, shortness of breath. Prescriptions: No Action carvedilol [Coreg] 25 MG tablet 25 mg PO BID Qty: 0 lidocaine 5 % adhesive patch,medicated 1 patch transdermal Q12H PRN (Reason: Pain, Mild) albuterol sulfate [ProAir HFA] 90 mcg/actuation HFA aerosol inhaler 1 puff INHALATION PRN PRN (Reason: Wheezing) atorvastatin 40 mg tablet 40 mg PO DAILY Eliquis 2.5 mg tablet 2.5 mg PO BID gabapentin 600 mg tablet 600 mg PO TID lidocaine 5 % Adhesive Patch,Medicated 1 ea topical DAILY Qty: 30 0RF docusate sodium 100 mg Capsule 100 mg PO BID Qty: 60 0RF amoxicillin-pot clavulanate 875-125 mg Tablet 1 tab PO BID Qty: 8 0RF Referrals: George Luna DO [Primary Care Provider] - Stand Alone Forms: Patient Portal/API <Star Walker DO - Last Filed: 11/02/22 18:51> Cosign ED Attending Cosignature Attestation: Dr Walker Co-Sign Statement: I was available for consultation during this patient's emergency department visit. This chart is signed by myself for administrative purposes only. I did not have direct contact with this patient during this visit. They were seen independently by the APC.
--- NOTE | 2022-11-02 18:18 | CM.SWNOTE ---
ED DCP/INDOOR LANDSCAPE ARCHITECT Note Patient is 82 y/o male who presents to ED via EMS after [facility] RN reports concerns for patient's weakness, SOB and leg swelling. Patient discharged from [facility] yesterday after SNF rehab stay since 08/09/22. Patient has Medicare A & B and for Life insurance. Patient's PCP listed is George Luna. ED provider LEBRON Valadez assess patient and there is no medical need for admission to hospital, patient denies any concerns. Ulrtasound is conducted to assess patient's lower extremities and there are no issues found. INDOOR LANDSCAPE ARCHITECT enters room to meet with patient. Patient presents as A/Ox4. Patient endorses that he has a medical/hospital bed at home and lives with spouse in [place] in [facility]. Patient reports that the floor he resides on he has access to medical bed, bathroom and kitchen. Patient endorses he cannot ambulate and uses wheelchair at baseline. It is reported that patient has a stair glide, multiple wheelchairs and FWW. Patient endorses that he can transfer from wheelchair to commode and bed. Patient endorses two incidents yesterday where he needed lift assist from paramedics. Patient states that he forgot to put his wheelchair brake on and forgot to lower his bed when he fell. Patient endorses that he can cook and prepare meals and can typically dress himself. Patient endorses that he has been wearing briefs since his recent SNF stay. INDOOR LANDSCAPE ARCHITECT discusses that insurance coverage will not be active for SNF rehab. INDOOR LANDSCAPE ARCHITECT discusses private pay options for SNF and caregivers. patient endorses that he does not want to pay out of pocket. Patient endorses he feels safe at home and preference to be at home. Patient endorses agreement to BLS home, and suggests calling spouse. INDOOR LANDSCAPE ARCHITECT dicusses [facility] as support as well, as patient endorses he has transfer poles that he needs assistance installing. INDOOR LANDSCAPE ARCHITECT calls Jose with [employer] [facility] (Ph. # [phone]), Jose states that he can provide assistance with installing poles and identify patient needs with patient and spouse. INDOOR LANDSCAPE ARCHITECT provides contact information. INDOOR LANDSCAPE ARCHITECT calls spouse and endorses patient presentation, and that patient is medically clear for d/c, no need for admission or coverage for SNF rehab. Spouse declines private pay option. INDOOR LANDSCAPE ARCHITECT discusses that INDOOR LANDSCAPE ARCHITECT will call [facility]. INDOOR LANDSCAPE ARCHITECT discusses [facility] and the supports they can provide and assist with installing DME, INDOOR LANDSCAPE ARCHITECT provide phone number for Jose at [facility]. Spouse endorses that patient's grandchildren live near by if needed but are usually busy with work. Spouse indicates agreement with S transport home for patient. INDOOR LANDSCAPE ARCHITECT to send patient home with list and contact information for caregivers and senior resource guide. INDOOR LANDSCAPE ARCHITECT calls [facility] and leaves VM regarding patient's POC and disposition, requesting continued HH services. Plan: patient to d/c to home with BLS, [facility] to f/u with patient referral, [facility] to f/u with patient's DME installment and other needs, family to f/u with caregivers. Gabi Padilla, LAP CUTTER
--- NOTE | 2022-11-04 12:25 | CM.SWNOTE ---
Addendum entered by Gabi Padilla 11/05/22 17:14: Additional f/u DIRECTOR WRITING receives VM from [facility] who reports that they cannot accept patient's HH referral due to his level of acuity. Patient's spouse comes to ED waiting area before DIRECTOR WRITING is able to call spouse regarding this. DIRECTOR WRITING meets with spouse in [facility] and reports [facility] 's denial. Spouse reports that [facility] and she is going to have a telehealth appt with them regarding nursing and home care. Spouse reports that [facility] states that an ambulance can pick patient up for wound care as he is not receiving in home or outpatient wound care due to several HH denials and patient's inability to transport. Spouse reports concern for patient's wound and her ability to care for him. DIRECTOR WRITING recruits RN for information about wound care to provide to patient's spouse. Spouse endorses she has called Shilo with [facility] but has not heard back from him. DIRECTOR WRITING endorses DIRECTOR WRITING will call and request call for her as well. DIRECTOR WRITING calls [facility] and leaves VM requesting f/u. DIRECTOR WRITING encourages spouse to f/u with [facility] for aid and attendance services as well as wound care. Spouse endorses understanding. Gabi Padilla, [facility] Original Note: ED DIRECTOR WRITING f/u Note DIRECTOR WRITING receives VM from [facility] on 11/03/22 stating that they are declining services for patient due to his acuity. DIRECTOR WRITING calls [facility] and submits new referral, F2F and order for HH referral for DIRECTOR WRITING, PT, OT, RN and HH aide. Balpreet with [facility] states that they can start services and will call spouse this week. DIRECTOR WRITING calls MD access line and it is reported that patient has 40% [facility] service and patient's VA PCP is Barbara Collins (Ph. # [phone]) DIRECTOR WRITING calls PCP and leaves VM regarding patient and patient's needs. DIRECTOR WRITING calls spouse and informs her of new referral with [facility]. She states that she contacted the [facility] SW and they are getting in contact with PCP and will assess needs for higher level of care for patient. DIRECTOR WRITING informs spouse to ask about patient's aid and attendance to see if patient can get coverage for caregiving or PENITENTIARY. DIRECTOR WRITING encourages patient's spouse to call Shilo with [facility] as well. Plan: [facility] referral in place, spouse to f/u with [facility] and VA support services for patient. Gabi Padilla, DIRECTOR BUSINESS DEVELOPMENT
== END 2022-11-02 19:13 | disposition home or self-care (01) ==
PROVIDERS: Emergency Provider Student in an Organized Health Care Education/Training Program; Family Provider Family Medicine; PCP Family Medicine
DX: M79.89 Other specified soft tissue disorders (principal)
CPT/HCPCS: 93970; 99283

== ENCOUNTER 2022-12-24 16:25 | Inpatient (IN) | payer MEDICARE, OTHER, SELFPAY ==
[2022-08-02 23:17] VITALS: BMI 45.3
[2022-12-24] VITALS (10 sets, daily range): BP systolic 122–139; BP diastolic 58–72; PULSE 66–82; RESP 20–29; TEMP 36.1–36.9; O2SAT 91–98; BMI 44.9; BMI 44.1
--- NOTE | 2022-12-24 16:46 | DI.RAD.S_ITS ---
PROCEDURE: XR CHEST 1V INDICATIONS: Shortness of breath TECHNIQUE: One view of the chest was acquired. COMPARISON: [facility], , XR CHEST 1V, 08/02/2022, 18:02. FINDINGS: Surgical changes and devices: There is a cardiac pacemaker in expected position. Abandoned cardiac pacer leads are noted in the right hemithorax. Lungs and pleura: Lungs are clear. No pleural effusions or pneumothorax. Mediastinum: Mediastinal contours appear normal. Heart size is mildly increased. Bones and chest wall: No suspicious bony lesions. Overlying soft tissues appear unremarkable. IMPRESSION: Mild cardiomegaly. No confluent pulmonary edema. Dictated by: Alena Elder M.D. on 12/24/2022 at 17:35 Approved by: Alena Elder M.D. on 12/24/2022 at 17:36
[2022-12-24 17:01] LABS: Add Manual Diff / Slide Review NO; Basophils Absolute Auto 100 /uL (0-100); Basophils Percent Auto 0.5 % (0-2); Eosinophils Absolute Auto 600 /uL (0-450); Eosinophils Percent Auto 6.1 % (2-4); Hematocrit 39.5 % (41-53); Hemoglobin 12.7 g/dL (13.5-17.5); Lymphocytes Absolute Auto 3000 /uL (1100-4500); Lymphocytes Percent Auto 30.2 % (25-40); Mean Corpuscular HGB Conc 32.1 % (30-36); Mean Corpuscular Hemoglobin 25.9 PG (26-34); Mean Corpuscular Volume 80.7 fL (80-100); Monocytes Absolute Auto 800 /uL (0-900); Monocytes Percent Auto 7.9 % (3-14); Neutrophils Absolute Auto 5500 /uL (1500-7000); Neutrophils Percent Auto 55.3 % (50-75); Platelet Count 300 X10^3/uL (150-400); Red Blood Cell Count 4.89 X10^6/uL (4.5-5.9); Red Cell Distribution Width 17.6 % (11.6-14.8)
[2022-12-24 17:07] LABS: INR 1.3 (0.9-1.3); Prothrombin Time 15.2 SECONDS (10.1-12.7)
[2022-12-24 17:12] LABS: Alanine Aminotransferase 20 IU/L (<50); Albumin 3.3 g/dL (3.5-5.0); Alkaline Phosphatase 107 U/L (38-126); Aspartate Aminotransferase 25 IU/L (17-59); BUN Creatinine Ratio 24.7 (6-22); Bilirubin Total 0.3 mg/dL (0.2-1.3); Blood Urea Nitrogen 22 mg/dL (9-20); Calcium 8.3 mg/dL (8.4-10.2); Carbon Dioxide 35 mmol/L (22-32); Chloride 101 mmol/L (98-107); Estimated Glomerular Filt Rate > 60 mL/min (>60); Globulin 3.4 g/dL (1.7-4.1); Glucose 143 mg/dL (80-110); HEMOLYSIS < 15 (0-50); Potassium 4.2 mmol/L (3.4-5.1); Sodium 141 mmol/L (137-145); Total Protein 6.7 g/dL (6.3-8.2)
[2022-12-24 17:13] LABS: Lactate (Lactic Acid) 1.5 mmol/L (0.7-2.1)
[2022-12-24 17:24] LABS: NT-proBNP (BNP-Adult 18+) 688 pg/mL (<450); Troponin I 0.014 ng/mL (0.01-0.034)
--- NOTE | 2022-12-24 18:11 | ED.SOB ---
HPI - SOB/Dyspnea General Chief Complaint: Shortness of Breath/Dyspnea Stated Complaint: Low O2 Time Seen by Provider: 12/24/22 16:57 Source: patient Mode of arrival: EMS Limitations: no limitations History of Present Illness HPI Narrative: 82-year-old male nonsmoker with prior spinal cord injury, self catheterization, prior laminectomy, CHF, ID with 2 prior stents, pacer on Eliquis 2.5 mg twice daily, hypertension, hyperlipidemia, prior right leg DVT presents by EMS for evaluation of increasing shortness of breath and cough over the past few days. He is felt a bit under the weather and has been producing more off colored sputum. He is short of breath and on arrival EMS found his pulse ox to be in the low to mid 80s. He was placed initially on 6 L by nasal cannula and then eventually down to 3 L by his arrival. He denies nausea, vomiting diarrhea. He denies any change in his medications. He denies dietary change. Related Data Home Medications Medication Instructions Recorded Confirmed carvedilol 25 mg tablet (Coreg) 25 mg PO BID ##0 02/29/12 12/24/22 albuterol sulfate 90 mcg/actuation 1 puff inhalation Q4HR PRN sob 08/03/22 12/24/22 aerosol inhaler (ProAir HFA) apixaban 2.5 mg tablet (Eliquis) 2.5 mg PO BID 08/03/22 12/24/22 atorvastatin 40 mg tablet 40 mg PO DAILY 08/03/22 12/24/22 gabapentin 600 mg tablet 600 mg PO TID 08/03/22 12/24/22 lidocaine 5 % topical patch 1 patch transdermal Q12H PRN Pain, 08/03/22 12/24/22 Mild acetaminophen 500 mg tablet 500 mg PO Q6H PRN Pain (Scale 12/24/22 12/24/22 Score 1-3) calcium carbonate 600 mg-vitamin 1 tab PO DAILY 12/24/22 12/24/22 D3 5 mcg (200 unit) tablet furosemide 40 mg tablet 40 mg PO DAILY 12/24/22 12/24/22 multivitamin 1 tab PO DAILY 12/24/22 12/24/22 vitamin A-vitamin C-vit E-min 1 tab PO DAILY 12/24/22 12/24/22 tablet Allergies Allergy/AdvReac Type Severity Reaction Status Date / Time No Known Drug Allergies Allergy Verified 08/02/22 17:38 Review of Systems Review of Systems Narrative: GENERAL: Denies chills, fatigue, malaise, fever, sweats. HEENT: Denies sinus pain, ear pain, sore throat, difficulty swallowing, dizziness. RESPIRATORY: See HPI CARDIOVASCULAR: Denies chest pain, palpitations, orthopnea, edema, GASTROINTESTINAL: Denies nausea, vomiting, abdominal pain, diarrhea, constipation, melena. : Denies dysuria, frequency, incontinence, hematuria, urinary retention. MUSCULOSKELETAL: denies weakness, joint pain, or bony pain SKIN: Denies rash, skin lesions, or other NEUROLOGIC: Denies weakness, headache, numbness, change in speech, confusion, seizures, incoordination. PSYCHIATRIC: No concerning psychosocial issues. 12 point review of systems is negative except for those stated above Patient History Medical History Chronic anticoagulation Chronic indwelling Mckee catheter Congestive heart failure Coronary artery disease History of ID (myocardial infarction) Hyperlipidemia Hypertension Intermittent self-catheterization of bladder Pacemaker Paraplegic spinal paralysis Spinal cord injury, incomplete Surgical History History of coronary artery stent placement History of laminectomy History of right knee joint replacement Family History Father Congestive heart failure Mother Cancer Social History household members: spouse Smoking Status: Never smoker alcohol intake: never Smoking Status: Never smoker alcohol intake frequency: holidays/special occasions only Substance Use Type: does not use Exam Narrative Exam Narrative: GENERAL: [82] year old patient appears stated age. Well-developed patient, in mild distress. HEAD: Atraumatic. Normocephalic. EYES: Pupils equal round and reactive. Extraocular motions intact. No scleral icterus. No injection or drainage. ENT: Nose without bleeding, purulent drainage. Throat without erythema, tonsillar hypertrophy or exudate. Airway patent. NECK: Trachea midline. Non tender CARDIOVASCULAR: Regular rate and rhythm without murmurs, gallops, or rubs. RESPIRATORY: Crackles in bilateral bases, slightly tachypneic, coarse lung sounds throughout, requiring 3 L by nasal cannula GASTROINTESTINAL: Abdomen soft, non-tender, nondistended. EXTREMITIES: No edema or joint tenderness. BACK: Nontender without deformity or crepitance. No flank tenderness. NEURO: AOx3. Initial Vital Signs Initial Vital Signs: Vital Signs Temperature 98.5 F 12/24/22 16:35 Pulse Rate 80 12/24/22 16:35 Respiratory Rate 24 12/24/22 16:35 Blood Pressure 133/72 12/24/22 16:35 Pulse Oximetry 91 12/24/22 16:35 Oxygen Delivery Method Nasal Cannula 12/24/22 16:35 Oxygen Flow Rate 6 12/24/22 16:35 Course Orders Ordered: Acetaminophen (Acetaminophen 325 Mg Tablet) 650 mg PO Q6H PRN PRN Reason: Fever/Mild Pain (1-3) Al Hydrox/Mg Hydrox/Simethicone (Mag Hydrox/Alum/Simeth 30 Ml Udc) 30 ml PO Q6HR PRN PRN Reason: Dyspepsia Albuterol/Ipratropium (Albuterol/Ipratropium 3 Ml Ampul) 3 ml INH [id number] [facility] Apixaban (Apixaban 5 Mg Tablet) 2.5 mg PO BID [facility] Last Admin: 12/25/22 09:51 Dose: 2.5 mg Documented By: Admin: 12/24/22 21:15 Dose: 2.5 mg Documented By: SIDRA Atorvastatin Calcium (Atorvastatin 20 Mg Tablet) 40 mg PO DAILY [facility] Last Admin: 12/25/22 09:52 Dose: 40 mg Documented By: RADHA Benzonatate (Benzonatate 100 Mg Capsule) 100 mg PO TID PRN PRN Reason: Cough Benzonatate (Benzonatate 100 Mg Capsule) 100 mg PO TID PRN PRN Reason: Cough Calcium Carbonate (Calcium Carbonate 500 Mg Tab) 1,000 mg PO Q4HR PRN PRN Reason: Dyspepsia Docusate Sodium (Docusate 100 Mg Capsule) 100 mg PO BID [facility] Last Admin: 12/25/22 10:14 Dose: Not Given Documented By: Admin: 12/24/22 21:15 Dose: 100 mg Documented By: SIDRA Gabapentin (Gabapentin 600 Mg Tablet) 600 mg PO TID [facility] Last Admin: 12/25/22 09:53 Dose: 600 mg Documented By: Admin: 12/24/22 21:14 Dose: 600 mg Documented By: SIDRA Guaifenesin (Guaifenesin Er 600 Mg Tab) 600 mg PO BID [facility] Last Admin: 12/25/22 09:53 Dose: 600 mg Documented By: RADHA Guaifenesin/Codeine Phosphate (Codeine/Guaifenesin Liquid 5ml Udc) 5 ml PO Q6H PRN PRN Reason: Cough Levofloxacin (Levaquin) 750 mg in 150 mls @ 100 mls/hr IV Q24H [place] Stop: 12/30/22 08:59 Last Admin: 12/25/22 09:51 Dose: 100 mls/hr Documented By: RADHA Lidocaine (Lidocaine Patch 1 Each Adh..Patch) 1 each TOP Q12H PRN PRN Reason: Pain, Mild Naloxone HCl (Naloxone 0.4 Mg/Ml Vial) 0.2 mg IV Q2MIN PRN PRN Reason: Opiate Reversal Ondansetron HCl (Ondansetron 4 Mg Odt) 4 mg PO Q8HR PRN PRN Reason: Nausea And Vomiting Prednisone (Prednisone 20 Mg Tablet) 50 mg PO DAILY [facility] Stop: 12/30/22 08:59 Last Admin: 12/25/22 09:54 Dose: 50 mg Documented By: RADHA Sennosides (Sennosides 8.6 Mg Tablet) 17.2 mg PO BEDTIME [facility] Last Admin: 12/24/22 21:14 Dose: 17.2 mg Documented By: SIDRA Discontinued Medications Albuterol/Ipratropium (Albuterol/Ipratropium 3 Ml Ampul) 3 ml INH RTQ4HR PRN PRN Reason: Shortness Of Breath Last Admin: 12/24/22 23:02 Dose: 3 ml Documented By: MR Carvedilol (Carvedilol 12.5 Mg Tablet) 25 mg PO BID [facility] Last Admin: 12/25/22 10:14 Dose: Not Given Documented By: Admin: 12/24/22 21:14 Dose: 25 mg Documented By: SIDRA Ceftriaxone Sodium 1,000 mg/ (Sodium Chloride) 100 mls @ 200 mls/hr IV NOW ONE Stop: 12/24/22 18:23 Last Infusion: 12/24/22 19:36 Dose: 0 mls/hr Documented By: Admin: 12/24/22 18:29 Dose: 200 mls/hr Documented By: NEGAR Azithromycin 500 mg/ Dextrose 250 mls @ 250 mls/hr IV NOW ONE Stop: 12/24/22 18:23 Last Infusion: 12/24/22 23:22 Dose: 0 mls/hr Documented By: Admin: 12/24/22 19:42 Dose: 250 mls/hr Documented By: FRAN Vital Signs Vital signs: Vital Signs - 8 hr 12/24/22 16:35 12/24/22 16:35 12/24/22 16:36 Temperature 98.5 F Pulse Rate 80 82 Respiratory Rate 24 Blood Pressure 133/72 133/72 Pulse Oximetry 91 91 Oxygen Delivery Method Nasal Cannula Nasal Cannula Oxygen Flow Rate 6 6 12/24/22 17:00 12/24/22 17:00 12/24/22 17:30 Temperature Pulse Rate 72 Respiratory Rate 25 H Blood Pressure 122/58 L 124/59 L Pulse Oximetry 93 Oxygen Delivery Method Nasal Cannula Oxygen Flow Rate 6 12/24/22 17:30 12/24/22 18:00 12/24/22 18:00 Temperature Pulse Rate 70 66 Respiratory Rate 29 H 23 Blood Pressure 133/58 L Pulse Oximetry 92 95 Oxygen Delivery Method Nasal Cannula Nasal Cannula Oxygen Flow Rate 3 3 12/24/22 18:30 12/24/22 18:30 Temperature Pulse Rate 66 Respiratory Rate 20 Blood Pressure 139/68 Pulse Oximetry 94 Oxygen Delivery Method Nasal Cannula Oxygen Flow Rate 3 MDM - SOB/Dyspnea Lab Data 12/25/22 05:00 12/25/22 05:00 Labs: Lab Results 12/24/22 12/24/22 12/24/22 Range/Units 16:50 16:50 16:50 WBC 10.0 (4.5-11.0) X10^3/uL RBC 4.89 (4.5-5.9) X10^6/uL Hgb 12.7 L (13.5-17.5) g/dL Hct 39.5 L (41-53) % MCV 80.7 (80-100) fL MCH 25.9 L (26-34) PG MCHC 32.1 (30-36) % RDW 17.6 H (11.6-14.8) % Plt Count 300 (150-400) X10^3/uL Neut % (Auto) 55.3 (50-75) % Lymph % (Auto) 30.2 (25-40) % Amite % (Auto) 7.9 (3-14) % Eos % (Auto) 6.1 H (2-4) % Baso % (Auto) 0.5 (0-2) % Neut # (Auto) 5500 (4683-6816) /uL Lymph # (Auto) 3000 (1927-0818) /uL Amite # (Auto) 800 (0-900) /uL Eos # (Auto) 600 H (0-450) /uL Baso # (Auto) 100 (0-100) /uL PT 15.2 H (10.1-12.7) SECONDS INR 1.3 (0.9-1.3) VBG pH (7.33-7.43) VBG pCO2 (45-50) mmHg VBG pO2 (35-45) mmHg VBG HCO3 (24-28) mmol/L VBG Total CO2 (24-29) mmol/L VBG O2 Saturation (70-75) % VBG Base Excess (0-4) mmol/L FiO2 Sodium 141 (137-145) mmol/L Potassium 4.2 (3.4-5.1) mmol/L Chloride 101 (98-107) mmol/L Carbon Dioxide 35 H (22-32) mmol/L BUN 22 H (9-20) mg/dL Creatinine 0.89 (0.66-1.25) mg/dL Estimated GFR > 60 (>60) mL/min BUN/Creatinine Ratio 24.7 H (6-22) Glucose 143 H (80-110) mg/dL Lactate (0.7-2.1) mmol/L Calcium 8.3 L (8.4-10.2) mg/dL Magnesium (1.6-2.3) mg/dL Total Bilirubin 0.3 (0.2-1.3) mg/dL AST 25 (17-59) IU/L ALT 20 (<50) IU/L Alkaline Phosphatase 107 (38-126) U/L Troponin I 0.014 (0.01-0.034) ng/mL C-Reactive Protein (<1.0) mg/dL NT-Pro-B Natriuret Pep 688 H (<450) pg/mL Total Protein 6.7 (6.3-8.2) g/dL Albumin 3.3 L (3.5-5.0) g/dL Globulin 3.4 (1.7-4.1) g/dL Albumin/Globulin Ratio 1.0 (1.0-2.8) Procalcitonin (<0.5) ng/mL SARS-CoV-2 (PCR) (Negative) 12/24/22 12/24/22 12/24/22 Range/Units 16:50 16:50 16:50 WBC (4.5-11.0) X10^3/uL RBC (4.5-5.9) X10^6/uL Hgb (13.5-17.5) g/dL Hct (41-53) % MCV (80-100) fL MCH (26-34) PG MCHC (30-36) % RDW (11.6-14.8) % Plt Count (150-400) X10^3/uL Neut % (Auto) (50-75) % Lymph % (Auto) (25-40) % Amite % (Auto) (3-14) % Eos % (Auto) (2-4) % Baso % (Auto) (0-2) % Neut # (Auto) (7611-9655) /uL Lymph # (Auto) (8781-5582) /uL Amite # (Auto) (0-900) /uL Eos # (Auto) (0-450) /uL Baso # (Auto) (0-100) /uL PT (10.1-12.7) SECONDS INR (0.9-1.3) VBG pH (7.33-7.43) VBG pCO2 (45-50) mmHg VBG pO2 (35-45) mmHg VBG HCO3 (24-28) mmol/L VBG Total CO2 (24-29) mmol/L VBG O2 Saturation (70-75) % VBG Base Excess (0-4) mmol/L FiO2 Sodium (137-145) mmol/L Potassium (3.4-5.1) mmol/L Chloride (98-107) mmol/L Carbon Dioxide (22-32) mmol/L BUN (9-20) mg/dL Creatinine (0.66-1.25) mg/dL Estimated GFR (>60) mL/min BUN/Creatinine Ratio (6-22) Glucose (80-110) mg/dL Lactate 1.5 (0.7-2.1) mmol/L Calcium (8.4-10.2) mg/dL Magnesium 2.1 (1.6-2.3) mg/dL Total Bilirubin (0.2-1.3) mg/dL AST (17-59) IU/L ALT (<50) IU/L Alkaline Phosphatase (38-126) U/L Troponin I (0.01-0.034) ng/mL C-Reactive Protein 5.6 H (<1.0) mg/dL NT-Pro-B Natriuret Pep (<450) pg/mL Total Protein (6.3-8.2) g/dL Albumin (3.5-5.0) g/dL Globulin (1.7-4.1) g/dL Albumin/Globulin Ratio (1.0-2.8) Procalcitonin 0.04 (<0.5) ng/mL SARS-CoV-2 (PCR) (Negative) 12/24/22 12/24/22 Range/Units 18:15 19:23 WBC (4.5-11.0) X10^3/uL RBC (4.5-5.9) X10^6/uL Hgb (13.5-17.5) g/dL Hct (41-53) % MCV (80-100) fL MCH (26-34) PG MCHC (30-36) % RDW (11.6-14.8) % Plt Count (150-400) X10^3/uL Neut % (Auto) (50-75) % Lymph % (Auto) (25-40) % Amite % (Auto) (3-14) % Eos % (Auto) (2-4) % Baso % (Auto) (0-2) % Neut # (Auto) (1570-9731) /uL Lymph # (Auto) (4868-7420) /uL Amite # (Auto) (0-900) /uL Eos # (Auto) (0-450) /uL Baso # (Auto) (0-100) /uL PT (10.1-12.7) SECONDS INR (0.9-1.3) VBG pH 7.39 (7.33-7.43) VBG pCO2 56.5 H (45-50) mmHg VBG pO2 26 L (35-45) mmHg VBG HCO3 34 H (24-28) mmol/L VBG Total CO2 36 H (24-29) mmol/L VBG O2 Saturation 45 L (70-75) % VBG Base Excess 9.0 H (0-4) mmol/L FiO2 24 Sodium (137-145) mmol/L Potassium (3.4-5.1) mmol/L Chloride (98-107) mmol/L Carbon Dioxide (22-32) mmol/L BUN (9-20) mg/dL Creatinine (0.66-1.25) mg/dL Estimated GFR (>60) mL/min BUN/Creatinine Ratio (6-22) Glucose (80-110) mg/dL Lactate (0.7-2.1) mmol/L Calcium (8.4-10.2) mg/dL Magnesium (1.6-2.3) mg/dL Total Bilirubin (0.2-1.3) mg/dL AST (17-59) IU/L ALT (<50) IU/L Alkaline Phosphatase (38-126) U/L Troponin I (0.01-0.034) ng/mL C-Reactive Protein (<1.0) mg/dL NT-Pro-B Natriuret Pep (<450) pg/mL Total Protein (6.3-8.2) g/dL Albumin (3.5-5.0) g/dL Globulin (1.7-4.1) g/dL Albumin/Globulin Ratio (1.0-2.8) Procalcitonin (<0.5) ng/mL SARS-CoV-2 (PCR) Negative (Negative) Discharge Plan Departure Patient Disposition: Admitted As Inpatient Clinical Impression: Acute respiratory failure with hypoxia, Pneumonia Admit Date/Time: 12/24/22 19:25 Admit Provider: Gabbi Purcell
--- NOTE | 2022-12-24 18:22 | DI.CT.S_ITS ---
PROCEDURE: CT ANGIO CHEST PE PROTOCOL INDICATIONS: SOB, cough TECHNIQUE: After the administration of intravenous contrast, 2 mm thick sections acquired from the pulmonary apices to the posterior costophrenic angles. 3-dimensional maximum intensity projection (MIP) coronal and sagittal reformats were then acquired through the thorax. For radiation dose reduction, the following was used: automated exposure control, adjustment of mA and/or kV according to patient size. COMPARISON: [facility], CT, CT ABDOMEN PELVIS W CON, 08/02/2022, 19:17. [facility], CR, XR CHEST 1V, 12/24/2022, 16:56. FINDINGS: Image quality: Mild respiratory motion artifacts. Pulmonary arteries: Pulmonary arteries are mildly enlarged measuring 3.5 cm. There are no intraluminal filling defects to suggest acute central pulmonary embolism. Mild pruning of distal pulmonary arteries (for example, series 4, image 60). Lungs and pleura: Lungs are clear. No pleural effusions or pneumothorax. Central and peripheral airways are patent. Mediastinum: Heart size is mildly enlarged. No pericardial effusion. Moderate coronary calcification. Suspect a coronary stent in LAD. Mildly enlarged mediastinal and hilar lymph nodes are noted. For example there is a 1 cm AP window lymph node. A 1 cm subcarinal lymph node is identified. Enlarged right hilar lymph node measures 1.4 x 1.8 cm. A 1.3 cm left hilar lymph node is present. Thoracic aorta is normal in caliber and enhancement. Esophagus is normal in caliber. Small hiatal hernia. Bones and chest wall: No suspicious bony lesions. Ribs and thoracic spine appear intact throughout. Thyroid gland is normal. No axillary or supraclavicular adenopathy. Abdomen: Visualized upper abdominal solid organs appear normal in the early arterial phase of enhancement. IMPRESSION: 1. No definitive evidence for for acute pulmonary embolism. Mild pruning of distal pulmonary arteries. Cannot rule out chronic pulmonary embolism. Mild enlargement of central pulmonary artery, suggesting pulmonary hypertension. 2. Moderate cardiomegaly. There is coronary artery disease. 3. Small hiatal hernia. 4. Mild mediastinal and bilateral hilar lymphadenopathy. This finding is nonspecific and may be secondary to infectious, inflammatory or neoplastic etiology. Recommend clinical correlation and follow up. Dictated by: Alena Elder M.D. on 12/24/2022 at 19:09 Approved by: Alena Elder M.D. on 12/24/2022 at 19:17
[2022-12-24] MEDS: cefTRIAXone 1,000 MG in SODIUM CHLORIDE 0.9% 100 ML 200 MG IV (18:29)
[2022-12-24 18:30] LABS: COVID19 -Nasal RAPID Negative (Negative)
[2022-12-24] MEDS: AZITHROMYCIN 500 MG in DEXTROSE 5% IN WATER 250 ML 250 MG IV (19:42)
[2022-12-24 20:19] LABS: HCO3 VBG 34 mmol/L (24-28); PCO2 VBG 56.5 mmHg (45-50); PO2 VBG 26 mmHg (35-45); pH VBG 7.39 (7.33-7.43)
[2022-12-24 20:20] LABS: Fractionated Inspired Oxygen 24; Oxygen Saturation VBG 45 % (70-75); Total CO2 VBG 36 mmol/L (24-29)
--- NOTE | 2022-12-24 20:27 | P.HP_ITS ---
History of Present Illness History of Present Illness Date Patient Seen: 12/24/22 Time Patient Seen: 20:27 Chief complaint: Acute respiratory failure, pneumonia Narrative: Joey Grover is an 82-year-old male with a hx of CHF, WI stent x2, pacer on chronic Eliquis, HTN, HLD, CAD, history of right leg DVT, incomplete SCI paraplegic (reported secondary to laminectomy in 2002 that resulted in spinal Staph infection), intermittent catheterization during day &?Ferguson nightly, who was brought in by EMS from home following several days of increased shortness of breath, sputum production, nasal drainage, worsening cough, reported fever, chills, increased fatigue was found to be satting in the 80s on room air by EMS/ED. Patient is not on any chronic O2. Patient initially presented requiring 6L/NC, has been tapered down to 3 L/NC O2 saturation of 98%. Patient denies chest pain, shortness in breath (now on 02), headache, changes in vision, difficulty swallowing, sore throat, speech impairment, weakness, numbness, tingling, difficulty with ambulation, recent falls, head injury, LOC, recent exposure to illness, abdominal pain, nausea, vomiting, urinary incont inence/retention, dysuria, frequency, urgency, hematuria, bowel changes, constipation, incontinence, melena, rashes, recent changes to medication, illness, injury, or trauma. Patient does have in-home nursing 3 times a week, has multiple wounds on his scrotum of which he has daily dressing changes. On admit temp 98.5?, 139/68, 71, 29, O2 saturation 98% on 3 L/NC. Patient does not appear to be in any respiratory distress and is resting comfortably. HGB 12/HCT 39, eos 600, bicarb 35, BUN 22, glucose 143, lactate is negative, albumin 3.3. VBG is pH normal, pCO2 56.5, PO2 26, bicarb 34, TCO2 36, O2 sat 45%, BE 9, FiO2 24. Troponin normal 0.014, CRP 5.6, BNP 688, procalcitonin normal, MRSA negative, respiratory panel negative. Chest CTA:Negative for PE, ? Mild pruning of distal pulmonary arteries.? Cannot rule out chronic pulmonary embolism.? Mild enlargement of central pulmonary artery, Moderate cardiomegaly.? There is coronary artery disease, and Mild mediastinal and bilateral hilar lymphadenopathy.? This finding is nonspecific and may be secondary to infectious, inflammatory or neoplastic etiology. Patient admitted for acute hypoxic respiratory failure secondary to pneumonia. [facility] Medical History Chronic anticoagulation Chronic indwelling Ferguson catheter Congestive heart failure Coronary artery disease History of WI (myocardial infarction) Hyperlipidemia Hypertension Intermittent self-catheterization of bladder Pacemaker Paraplegic spinal paralysis Spinal cord injury, incomplete Surgical History History of coronary artery stent placement History of laminectomy History of right knee joint replacement Family History Father Congestive heart failure Mother Cancer Social History household members: spouse Smoking Status: Never smoker alcohol intake: never Meds Home Medications and Allergies Home Medications Medication Instructions Recorded Confirmed Type carvedilol 25 mg tablet (Coreg) 25 mg PO BID ##0 02/29/12 12/24/22 History albuterol sulfate 90 mcg/actuation 1 puff inhalation Q4HR PRN sob 08/03/22 12/24/22 History aerosol inhaler (ProAir HFA) apixaban 2.5 mg tablet (Eliquis) 2.5 mg PO BID 08/03/22 12/24/22 History atorvastatin 40 mg tablet 40 mg PO DAILY 08/03/22 12/24/22 History gabapentin 600 mg tablet 600 mg PO TID 08/03/22 12/24/22 History lidocaine 5 % topical patch 1 patch transdermal Q12H PRN Pain, 08/03/22 12/24/22 History Mild acetaminophen 500 mg tablet 500 mg PO Q6H PRN Pain (Scale 12/24/22 12/24/22 History Score 1-3) calcium carbonate 600 mg-vitamin 1 tab PO DAILY 12/24/22 12/24/22 History D3 5 mcg (200 unit) tablet furosemide 40 mg tablet 40 mg PO DAILY 12/24/22 12/24/22 History multivitamin 1 tab PO DAILY 12/24/22 12/24/22 History vitamin A-vitamin C-vit E-min 1 tab PO DAILY 12/24/22 12/24/22 History tablet Allergies Allergy/AdvReac Type Severity Reaction Status Date / Time No Known Drug Allergies Allergy Verified 08/02/22 17:38 Review of Systems Review of Systems Narrative: All 12 point systems reviewed with the patient and are negative except otherwise documented. Exam Vital Signs (past 8 hours): - 12/24/22 16:35 12/24/22 16:35 12/24/22 16:36 Temperature 98.5 F Pulse Rate 80 82 Respiratory Rate 24 Blood Pressure 133/72 133/72 Pulse Oximetry 91 91 Oxygen Delivery Method Nasal Cannula Nasal Cannula Oxygen Flow Rate 6 6 12/24/22 17:00 12/24/22 17:00 12/24/22 17:30 Temperature Pulse Rate 72 Respiratory Rate 25 H Blood Pressure 122/58 L 124/59 L Pulse Oximetry 93 Oxygen Delivery Method Nasal Cannula Oxygen Flow Rate 6 12/24/22 17:30 12/24/22 18:00 12/24/22 18:00 Temperature Pulse Rate 70 66 Respiratory Rate 29 H 23 Blood Pressure 133/58 L Pulse Oximetry 92 95 Oxygen Delivery Method Nasal Cannula Nasal Cannula Oxygen Flow Rate 3 3 12/24/22 18:30 12/24/22 18:30 12/24/22 19:00 Temperature Pulse Rate 66 71 Respiratory Rate 20 29 H Blood Pressure 139/68 Pulse Oximetry 94 98 Oxygen Delivery Method Nasal Cannula Nasal Cannula Oxygen Flow Rate 3 3 Oxygen Delivery Method Nasal Cannula Oxygen Flow Rate 3 Narrative Exam Narrative: General: Patient is a well-developed, well-nourished in no acute distress at this time. HEENT: Normocephalic, atraumatic, extraocular muscles intact, oral pharynx is clear and mucous membranes are moist. Neck is supple and symmetric, trachea is midline, no adenopathy, no thyroid enlargement, nontender, no masses palpated. Negative for JVD Chest: Pacemaker upper right, Equal chest rise without nasal flaring, retractions. mild shallow, tachypneic, labored breathing. Lungs: Auscultation of all lung [place] are decreased, coarse, poor air exchange, diffuse gross expiratory wheezing throughout, decreased in bilateral bases. Cardio: regular rate and rhythm without murmur, rubs, or gallops, no carotid br uit, no cardiac pulsations present. Abdomen: Soft nontender, negative for organomegaly, or masses. Bowel sounds are present in all 4 quadrants without guarding or rebound, no CVA tenderness. Ferguson in place Musculoskeletal: Muscle strength and tone are equal, no deformity, crepitus, effusions, cyanosis, clubbing present. Positive right lower extremity trace nonpitting edema, greater than left. Full range of motion intact radial and pedal pulses are normal. Skin: Warm dry and intact without rashes, multiple wounds to posterior scrotum. Neuro: Alert and orientated x3, moves all extremities, sensation to touch intact, no gross deficits noted of cranial nerves. Psych: Patient has a well-kept appearance, appropriate affect, mental status attitude thought context and judgment are appropriate for age. Objective Labs 12/24/22 16:50 12/24/22 16:50 Labs: Laboratory Results - last 24 hr 12/24/22 12/24/22 12/24/22 16:50 16:50 16:50 WBC 10.0 RBC 4.89 Hgb 12.7 L Hct 39.5 L MCV 80.7 MCH 25.9 L MCHC 32.1 RDW 17.6 H Plt Count 300 Neut % (Auto) 55.3 Lymph % (Auto) 30.2 Borden % (Auto) 7.9 Eos % (Auto) 6.1 H Baso % (Auto) 0.5 Neut # (Auto) 5500 Lymph # (Auto) 3000 Borden # (Auto) 800 Eos # (Auto) 600 H Baso # (Auto) 100 PT 15.2 H INR 1.3 VBG pH VBG pCO2 VBG pO2 VBG HCO3 VBG Total CO2 VBG O2 Saturation VBG Base Excess FiO2 Sodium 141 Potassium 4.2 Chloride 101 Carbon Dioxide 35 H BUN 22 H Creatinine 0.89 Estimated GFR > 60 BUN/Creatinine Ratio 24.7 H Glucose 143 H Lactate Calcium 8.3 L Total Bilirubin 0.3 AST 25 ALT 20 Alkaline Phosphatase 107 Troponin I 0.014 NT-Pro-B Natriuret Pep 688 H Total Protein 6.7 Albumin 3.3 L Globulin 3.4 Albumin/Globulin Ratio 1.0 SARS-CoV-2 (PCR) 12/24/22 12/24/22 12/24/22 16:50 18:15 19:23 WBC RBC Hgb Hct MCV MCH MCHC RDW Plt Count Neut % (Auto) Lymph % (Auto) Borden % (Auto) Eos % (Auto) Baso % (Auto) Neut # (Auto) Lymph # (Auto) Borden # (Auto) Eos # (Auto) Baso # (Auto) PT INR VBG pH 7.39 VBG pCO2 56.5 H VBG pO2 26 L VBG HCO3 34 H VBG Total CO2 36 H VBG O2 Saturation 45 L VBG Base Excess 9.0 H FiO2 24 Sodium Potassium Chloride Carbon Dioxide BUN Creatinine Estimated GFR BUN/Creatinine Ratio Glucose Lactate 1.5 Calcium Total Bilirubin AST ALT Alkaline Phosphatase Troponin I NT-Pro-B Natriuret Pep Total Protein Albumin Globulin Albumin/Globulin Ratio SARS-CoV-2 (PCR) Negative Assessment & Plan Assessment & Plan narrative: Joey Grover is an 82-year-old male with a hx of CHF, WI stent x2, pacer on chronic Eliquis, HTN, HLD, CAD, history of right leg DVT, incomplete SCI paraplegic (reported secondary to laminectomy in 2002 that resulted in spinal Staph infection), intermittent catheterization during day &? Ferguson nightly, who is admitted for acute hypoxic respiratory failure secondary to pneumonia. Gentle hydration, monitoring for fluid overload, Levaquin IV antibiotics pending blood, sputum, and urine cultures pending, goal to discharge titrating patient down off O2 to an O2 saturation of 88% on room air. Acute hypoxic, hypercapnic respiratory failure secondary to pneumonia, acute, present on admission * sat's: 80s% on rm air EMS/ED. Patient is not on any chronic O2. initial: 6L/NC, has been tapered down to 3 L/NC O2 saturation of 98%. Nonseptic * CTA:Negative for PE, ? Mild pruning of distal pulmonary arteries.? Cannot rule out chronic pulmonary embolism.? Mild enlargement of central pulmonary artery, Moderate cardiomegaly.? There is coronary artery disease, and Mild mediastinal and bilateral hilar lymphadenopathy.? This finding is nonspecific and may be secondary to infectious, inflammatory or neoplastic etiology. * VBG is pH normal, pCO2 56.5, PO2 26, bicarb 34, TCO2 36, O2 sat 45%, BE 9, FiO2 24. * Lactate nerg, albumin 3.3, CRP 5.6, BNP 688, procal neg, MRSA neg, respiratory panel negative. * Prednisone 50 mg q.day x5, DuoNebs q.4 hours as needed, incentive spirometry, Tessalon Perles, guaifenesin with codeine * Trend inflammatory markers, sputum culture ordered * Patient received Rocephin/azithromycin in ED, will continue with Levaquin Q 24 hours pending blood/sputum cultures * Repeat VBG in a.m. * PT/OT consult * Goals to discharge: tappering down off 02 to O2 saturation 88% on room air, with PT/OT clearance Chronic wounds, genitalia due to Chronic indwelling catheter and intermittent catheterization secondary to SCI, acute on chronic, present on admission * Patient has Ferguson in place. * Patient has multiple posterior scrotal wounds: Will order dressing changes q.day, wound culture * 08/02/2022 decubitus buttocks wound culture : Proteus mirabilis strep group B * Urine culture ordered * On last admit recommend that patient stop useage of indwelling ferguson, consider urology o/p consult for urinary cath port access like suprapubic catheter. Incomplete SCI, paraplegic, neurological function deterioration, frequent falls, chronic, present on admission * recommend rehab * PT OT evaluation * recommend patient consult Neurology/and or est care SCI specialist at for on-going management * Fall precautions Congestive heart failure, chronic, with a history of WI, stent x2, pacemaker on chronic anticoagulation, present on admission Fluid restriction, low-sodium, daily weights * Continue Lasix, Eliquis Right leg edema, with erythema, chronic, present on admission * history of DVT in right lower leg, progressive leg weakness, edema greater to rt/lt. 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 -the patient is at much higher risk for medical and surgical complications due to obesity as it relates to chronic illnesses:, and acute illness.? The patient's obesity increases the difficulty and complexity of medical and/or surgical interventions, management and increases the chances of poor outcome such as morbidity and mortality as well as impaired wound healing.? Code status:Full DVT/VTE prophylaxis:Devon Zaidi only Disposition:? Patient admitted for acute hypoxic hypercapnic respiratory failure likely secondary to pneumonia, expected length of stay to exceed 2 midnights. I have utilized all available immediate resources to obtain, update, or review the patient's current medications. I confirmed that the patient's advanced care plan is present, Code status is documented and/or surrogate decision maker is listed in the patient's medical record. I have personally reviewed patient's chart notes from PCP, specialists, diagnostic imaging, and laboratory results. Scores GCS Guillermo coma scale eye opening: Spontaneous Bushnell coma scale verbal response: Orientated Guillermo coma scale motor response: Obey commands Guillermo coma scale total score: 15 SOFA PaO2/FIO2: < 400 mmHg Platelets: >= 150 Bilirubin: < 1.2 mg/dL Hypotension: MAP >= 70 mmHg Bushnell Coma Scale: 15 Renal: < 1.2 mg/dL SOFA Score: 1
[2022-12-24 20:39] LABS: Adenovirus Not Detected (Not Detect); SARS- CoV-2 Not Detected (Not Detecte)
[2022-12-24 20:40] LABS: B. parapertussis Not Detected (Not Detecte); Bordetella pertussis Not Detected (Not Detecte); Chlamydophila pneumoniae Not Detected (Not Detect); Coronavirus 229E Not Detected (Not Detect); Coronavirus HKU1 Not Detected (Not Detect); Coronavirus NL 63 Not Detected (Not Detect); Coronavirus OC43 Not Detected (Not Detect); Human Metapneumovirus Not Detected (Not Detect); Human Rhinovirus/Enterovirus Not Detected (Not Detect); Influenza A Not Detected (Not Detect); Influenza B Not Detected (Not Detect); Mycoplasma pneumoniae Not Detected (Not Detect); Parainfluenza Virus 1 Not Detected (Not Detect); Parainfluenza Virus 2 Not Detected (Not Detect); Parainfluenza Virus 3 Not Detected (Not Detect); Parainfluenza Virus 4 Not Detected (Not Detect); Respiratory Syncytial Virus Not Detected (Not Detect)
[2022-12-24 20:42] LABS: C-Reactive Protein Quant 5.6 mg/dL (<1.0); Magnesium 2.1 mg/dL (1.6-2.3)
[2022-12-24 20:56] LABS: Procalcitonin 0.04 ng/mL (<0.5)
[2022-12-24] MEDS: carvediloL 12.5 MG TABLET 25 MG PO (21:14)
[2022-12-24] MEDS: SENNOSIDES 8.6 MG TABLET 17.2 MG PO (21:14)
[2022-12-24] MEDS: GABAPENTIN 600 MG TABLET PO (21:14)
[2022-12-24] MEDS: DOCUSATE 100 MG CAPSULE PO (21:15)
[2022-12-24] MEDS: APIXABAN 5 MG TABLET 2.5 MG PO (21:15)
[2022-12-24 22:42] LABS: MRSA (Nasal) PCR Not Detected (Not Detect)
--- NOTE | 2022-12-24 22:51 | PC.NURSE ---
Addendum entered by Lilliana Simpson R.N. 12/24/22 22:53: ; Addendum entered by Lilliana Simpson R.N. 12/24/22 22:52: 2 bottom wounds Original Note:
[2022-12-24] MEDS: ALBUTEROL/IPRATROPIUM 3 ML AMPUL INH (23:02)
[2022-12-25] VITALS (10 sets, daily range): BP systolic 114–149; BP diastolic 59–80; PULSE 60–83; RESP 16–26; TEMP 36.1–36.9; O2SAT 88–93
[2022-12-25 06:11] LABS: Add Manual Diff / Slide Review NO; Basophils Absolute Auto 0 /uL (0-100); Basophils Percent Auto 0.2 % (0-2); Eosinophils Absolute Auto 700 /uL (0-450); Eosinophils Percent Auto 7.1 % (2-4); Hematocrit 38.9 % (41-53); Hemoglobin 12.3 g/dL (13.5-17.5); Lymphocytes Absolute Auto 2800 /uL (1100-4500); Lymphocytes Percent Auto 29.9 % (25-40); Mean Corpuscular HGB Conc 31.7 % (30-36); Mean Corpuscular Hemoglobin 25.6 PG (26-34); Mean Corpuscular Volume 80.7 fL (80-100); Monocytes Absolute Auto 700 /uL (0-900); Monocytes Percent Auto 7.8 % (3-14); Neutrophils Absolute Auto 5100 /uL (1500-7000); Platelet Count 293 X10^3/uL (150-400); Red Blood Cell Count 4.81 X10^6/uL (4.5-5.9); Red Cell Distribution Width 17.6 % (11.6-14.8); White Blood Cell Count 9.3 X10^3/uL (4.5-11.0)
[2022-12-25 06:16] LABS: BUN Creatinine Ratio 25.9 (6-22); Blood Urea Nitrogen 21 mg/dL (9-20); Calcium 8.1 mg/dL (8.4-10.2); Carbon Dioxide 38 mmol/L (22-32); Chloride 100 mmol/L (98-107); Estimated Glomerular Filt Rate > 60 mL/min (>60); Glucose 103 mg/dL (80-110); HEMOLYSIS < 15 (0-50); Potassium 3.9 mmol/L (3.4-5.1); Sodium 141 mmol/L (137-145)
--- NOTE | 2022-12-25 08:32 | P.PN_ITS ---
Subjective Subjective Interval history: Patient currently at 3L PA. He reports several years of 2nd had smoke exposure from his who smoked but he himself never smoked. No history COPD or asthma. Still coughing up phlegm and wheezy. Exam Vital Signs (past 8 hours): - 12/25/22 05:16 Temperature 96.9 F L Pulse Rate 74 Respiratory Rate 18 Blood Pressure 149/80 H Pulse Oximetry 93 Oxygen Flow Rate 3 Oxygen Delivery Method Nasal Cannula Oxygen Flow Rate 3 Narrative Exam Narrative: General: Patient is a well-developed, well-nourished in no acute distress at this time. Obese. HEENT: Normocephalic, atraumatic, extraocular muscles intact, oral pharynx is clear and mucous membranes are moist. Neck is supple and symmetric, trachea is midline, no adenopathy, no thyroid enlargement, nontender, no masses palpated. Negative for JVD Chest: Pacemaker upper right, Equal chest rise without nasal flaring, retractions. mild shallow, tachypneic, labored breathing. Lungs: Auscultation of all lung [place] are decreased, poor air exchange, diffuse expiratory wheezing throughout, decreased in bilateral bases. Cardio: regular rate and rhythm without murmur, rubs, or gallops, no carotid bruit, no cardiac pulsations present. Abdomen: Soft nontender, negative for organomegaly, or masses. Bowel sounds are present in all 4 quadrants without guarding or rebound, no CVA tenderness. Ferguson in place Musculoskeletal: Muscle strength and tone are equal, no deformity, crepitus, effusions, cyanosis, clubbing present. Positive right lower extremity trace nonpitting edema, greater than left. Full range of motion intact radial and pe peña pulses are normal. Skin: Warm dry and intact without rashes, multiple wounds to posterior scrotum. Neuro: Alert and orientated x3, moves all extremities, sensation to touch intact, no gross deficits noted of cranial nerves. Psych: Patient has a well-kept appearance, appropriate affect, mental status attitude thought context and judgment are appropriate for age. Objective Labs 12/25/22 05:00 12/25/22 05:00 Labs: Laboratory Results - last 24 hr 12/24/22 12/24/22 12/24/22 16:50 16:50 16:50 WBC 10.0 RBC 4.89 Hgb 12.7 L Hct 39.5 L MCV 80.7 MCH 25.9 L MCHC 32.1 RDW 17.6 H Plt Count 300 Neut % (Auto) 55.3 Lymph % (Auto) 30.2 Alcorn % (Auto) 7.9 Eos % (Auto) 6.1 H Baso % (Auto) 0.5 Neut # (Auto) 5500 Lymph # (Auto) 3000 Alcorn # (Auto) 800 Eos # (Auto) 600 H Baso # (Auto) 100 PT 15.2 H INR 1.3 VBG pH VBG pCO2 VBG pO2 VBG HCO3 VBG Total CO2 VBG O2 Saturation VBG Base Excess FiO2 Sodium 141 Potassium 4.2 Chloride 101 Carbon Dioxide 35 H BUN 22 H Creatinine 0.89 Estimated GFR > 60 BUN/Creatinine Ratio 24.7 H Glucose 143 H Lactate Calcium 8.3 L Magnesium Total Bilirubin 0.3 AST 25 ALT 20 Alkaline Phosphatase 107 Troponin I 0.014 C-Reactive Protein NT-Pro-B Natriuret Pep 688 H Total Protein 6.7 Albumin 3.3 L Globulin 3.4 Albumin/Globulin Ratio 1.0 Procalcitonin Nasal Screen MRSA (PCR) Chlamy pneumoniae PCR Adenovirus (PCR) B. pertussis DNA (PCR) B.parapertussis DNA PCR Coronavirus OC43 (PCR) Coronavirus HKU1 (PCR) Coronavirus 229E (PCR) SARS-CoV-2 (PCR) Coronavirus NL63 (PCR) Human Metapneumovir PCR Influenza Type A (PCR) Influenza Type B (PCR) M. pneumoniae (PCR) Parainfluenza 1 (PCR) Parainfluenza 2 (PCR) Parainfluenza 3 (PCR) Parainfluenza 4 (PCR) RSV (PCR) Entero/Rhino (PCR) 12/24/22 12/24/22 12/24/22 16:50 16:50 16:50 WBC RBC Hgb Hct MCV MCH MCHC RDW Plt Count Neut % (Auto) Lymph % (Auto) Alcorn % (Auto) Eos % (Auto) Baso % (Auto) Neut # (Auto) Lymph # (Auto) Alcorn # (Auto) Eos # (Auto) Baso # (Auto) PT INR VBG pH VBG pCO2 VBG pO2 VBG HCO3 VBG Total CO2 VBG O2 Saturation VBG Base Excess FiO2 Sodium Potassium Chloride Carbon Dioxide BUN Creatinine Estimated GFR BUN/Creatinine Ratio Glucose Lactate 1.5 Calcium Magnesium 2.1 Total Bilirubin AST ALT Alkaline Phosphatase Troponin I C-Reactive Protein 5.6 H NT-Pro-B Natriuret Pep Total Protein Albumin Globulin Albumin/Globulin Ratio Procalcitonin 0.04 Nasal Screen MRSA (PCR) Chlamy pneumoniae PCR Adenovirus (PCR) B. pertussis DNA (PCR) B.parapertussis DNA PCR Coronavirus OC43 (PCR) Coronavirus HKU1 (PCR) Coronavirus 229E (PCR) SARS-CoV-2 (PCR) Coronavirus NL63 (PCR) Human Metapneumovir PCR Influenza Type A (PCR) Influenza Type B (PCR) M. pneumoniae (PCR) Parainfluenza 1 (PCR) Parainfluenza 2 (PCR) Parainfluenza 3 (PCR) Parainfluenza 4 (PCR) RSV (PCR) Entero/Rhino (PCR) 12/24/22 12/24/22 12/24/22 18:15 19:23 19:30 WBC RBC Hgb Hct MCV MCH MCHC RDW Plt Count Neut % (Auto) Lymph % (Auto) Alcorn % (Auto) Eos % (Auto) Baso % (Auto) Neut # (Auto) Lymph # (Auto) Alcorn # (Auto) Eos # (Auto) Baso # (Auto) PT INR VBG pH 7.39 VBG pCO2 56.5 H VBG pO2 26 L VBG HCO3 34 H VBG Total CO2 36 H VBG O2 Saturation 45 L VBG Base Excess 9.0 H FiO2 24 Sodium Potassium Chloride Carbon Dioxide BUN Creatinine Estimated GFR BUN/Creatinine Ratio Glucose Lactate Calcium Magnesium Total Bilirubin AST ALT Alkaline Phosphatase Troponin I C-Reactive Protein NT-Pro-B Natriuret Pep Total Protein Albumin Globulin Albumin/Globulin Ratio Procalcitonin Nasal Screen MRSA (PCR) Chlamy pneumoniae PCR Not detected Adenovirus (PCR) Not detected B. pertussis DNA (PCR) Not detected B.parapertussis DNA PCR Not detected Coronavirus OC43 (PCR) Not detected Coronavirus HKU1 (PCR) Not detected Coronavirus 229E (PCR) Not detected SARS-CoV-2 (PCR) Negative Not detected Coronavirus NL63 (PCR) Not detected Human Metapneumovir PCR Not detected Influenza Type A (PCR) Not detected Influenza Type B (PCR) Not detected M. pneumoniae (PCR) Not detected Parainfluenza 1 (PCR) Not detected Parainfluenza 2 (PCR) Not detected Parainfluenza 3 (PCR) Not detected Parainfluenza 4 (PCR) Not detected RSV (PCR) Not detected Entero/Rhino (PCR) Not detected 12/24/22 12/25/22 12/25/22 21:22 05:00 05:00 WBC 9.3 RBC 4.81 Hgb 12.3 L Hct 38.9 L MCV 80.7 MCH 25.6 L MCHC 31.7 RDW 17.6 H Plt Count 293 Neut % (Auto) 55.0 Lymph % (Auto) 29.9 Alcorn % (Auto) 7.8 Eos % (Auto) 7.1 H Baso % (Auto) 0.2 Neut # (Auto) 5100 Lymph # (Auto) 2800 Alcorn # (Auto) 700 Eos # (Auto) 700 H Baso # (Auto) 0 PT INR VBG pH VBG pCO2 VBG pO2 VBG HCO3 VBG Total CO2 VBG O2 Saturation VBG Base Excess FiO2 Sodium 141 Potassium 3.9 Chloride 100 Carbon Dioxide 38 H BUN 21 H Creatinine 0.81 Estimated GFR > 60 BUN/Creatinine Ratio 25.9 H Glucose 103 Lactate Calcium 8.1 L Magnesium Total Bilirubin AST ALT Alkaline Phosphatase Troponin I C-Reactive Protein NT-Pro-B Natriuret Pep Total Protein Albumin Globulin Albumin/Globulin Ratio Procalcitonin Nasal Screen MRSA (PCR) Not detected Chlamy pneumoniae PCR Adenovirus (PCR) B. pertussis DNA (PCR) B.parapertussis DNA PCR Coronavirus OC43 (PCR) Coronavirus HKU1 (PCR) Coronavirus 229E (PCR) SARS-CoV-2 (PCR) Coronavirus NL63 (PCR) Human Metapneumovir PCR Influenza Type A (PCR) Influenza Type B (PCR) M. pneumoniae (PCR) Parainfluenza 1 (PCR) Parainfluenza 2 (PCR) Parainfluenza 3 (PCR) Parainfluenza 4 (PCR) RSV (PCR) Entero/Rhino (PCR) [facility] Medical History Chronic anticoagulation Chronic indwelling Ferguson catheter Congestive heart failure Coronary artery disease History of GA (myocardial infarction) Hyperlipidemia Hypertension Intermittent self-catheterization of bladder Pacemaker Paraplegic spinal paralysis Spinal cord injury, incomplete Surgical History History of coronary artery stent placement History of laminectomy History of right knee joint replacement Family History Father Congestive heart failure Mother Cancer Social History household members: spouse Smoking Status: Never smoker alcohol intake: never Assessment & Plan Assessment & Plan narrative: Joey Grover is an 82-year-old male with a hx of CHF, GA stent x2, pacer on chronic Eliquis, HTN, HLD, CAD, history of right leg DVT, incomplete SCI paraplegic (reported secondary to laminectomy in 2002 that resulted in spinal Staph infection), intermittent catheterization during day &? Ferguson nightly, who is admitted for acute hypoxic respiratory failure secondary to pneumonia. Gentle hydration, monitoring for fluid overload, Levaquin IV antibiotics pending blood, sputum, and urine cultures pending, goal to discharge titrating patient down off O2 to an O2 saturation of 88% on room air. Acute hypoxic, hypercapnic respiratory failure secondary to pneumonia, acute, present on admission * sat's: 80s% on rm air EMS/ED. Patient is not on any chronic O2. initial: 6L/NC, has been tapered down to 3 L/NC O2 saturation of 98%. Suspect COPD exacerbation from viral illness. * CTA:Negative for PE, ? Mild pruning of distal pulmonary arteries.? Cannot rule out chronic pulmonary embolism.? Mild enlargement of central pulmonary artery, Moderate cardiomegaly.? There is coronary artery disease, and Mild mediastinal and bilateral hilar lymphadenopathy.? This finding is nonspecific and may be secondary to infectious, inflammatory or neoplastic etiology. * Lactate nerg, albumin 3.3, CRP 5.6, BNP 688, procal neg, MRSA neg, respiratory panel negative. 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 * Patient has multiple posterior scrotal wounds: Will order dressing changes q.day, wound culture * 08/02/2022 decubitus buttocks wound culture : Proteus mirabilis strep group B * Urine culture pending * On last admit recommend that patient stop useage of indwelling ferguson, consider urology o/p consult for urinary cath port access like suprapubic catheter. Incomplete SCI, paraplegic, neurological function deterioration, frequent falls, chronic, present on admission * recommend rehab * PT OT evaluation * recommend patient consult Neurology/and or est care SCI specialist at for on-going management * Fall precautions Congestive heart failure, chronic, with a history of GA, stent x2, pacemaker on chronic anticoagulation, present on admission Fluid restriction, low-sodium, daily weights * Continue Lasix, Eliquis Right leg edema, with erythema, chronic, present on admission * history of DVT in right lower leg, progressive leg weakness, edema greater to rt/lt. 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 The patient's obesity increases the difficulty and complexity of medical and/or surgical interventions, management and increases the chances of poor outcome such as morbidity and mortality as well as impaired wound healing.? Code status:Full DVT/VTE prophylaxis:Devon Zaidi only Disposition: Pending weaning of O2. Likely 2 more days.
[2022-12-25] MEDS: levoFLOXacin 750 MG/150 ML PIGGYBACK 100 MG IV (09:51)
[2022-12-25] MEDS: APIXABAN 5 MG TABLET 2.5 MG PO ×2 (09:51→21:51)
[2022-12-25] MEDS: ATORVASTATIN 20 MG TABLET 40 MG PO (09:52)
[2022-12-25] MEDS: GABAPENTIN 600 MG TABLET PO ×3 (09:53→21:51)
[2022-12-25] MEDS: guaiFENesin ER 600 MG TAB PO ×2 (09:53→21:53)
[2022-12-25] MEDS: predniSONE 20 MG TABLET 50 MG PO (09:54)
[2022-12-25] MEDS: ALBUTEROL/IPRATROPIUM 3 ML AMPUL INH ×2 (13:51→19:49)
--- NOTE | 2022-12-25 15:20 | PT.IIE ---
Current Diagnoses Acute respiratory failure with hypoxia (12/24/22) Surgical History (Last Reviewed 12/25/22 @ 00:50 by MALLIKA Vela) History of coronary artery stent placement History of laminectomy History of right knee joint replacement Medical History (Last Reviewed 12/25/22 @ 00:50 by MALLIKA Vela) Chronic anticoagulation Chronic indwelling Mckee catheter Congestive heart failure Coronary artery disease History of ID (myocardial infarction) Hyperlipidemia Hypertension Intermittent self-catheterization of bladder Pacemaker Paraplegic spinal paralysis Spinal cord injury, incomplete Physical Therapy Inpatient Evaluation/Re-Eval M1 PT/OT-IP Prior Functional Status Start: 12/25/22 16:53 Freq: NEEDED Status: Active Protocol: Document 12/25/22 15:20 AB (Rec: 12/25/22 17:20 AB [id number]) Medical Review Prior Functional Status Medical History Reviewed Yes Communication able to make needs known Mobility and Gait pt able to provide PLOF and home set up but spouse in room confirms/denies info and provided more details. pt was admitted to [facility] 08/02/22 to 08/09/22 for decubitus ulcers. spouse stated that he was d/c to [facility] after that and d/c home and was able to stand pivot without AD to get into their chair stair lift to get into bed room level. pt has a 2 w/c to use. one for outdoors and another indoors. spouse stated that prior to July's hospitalization, he was hospitalized and was d/c to [facility] for rehab but went home afterwards when insurance ran out. spouse stated that since since pt got home last july, he was not able to stand. spouse assists pt with mobility and a neighbor comes in to assists with squat pivot transfers of total A per spouse. pt would spend his day on his w/c from ~ 8 am until night time. spouse stated that a nurse comes in 3x/wk for wound care and also has PT and OT services once a week. pt is non ambulatory and stated that he has not walked for > 6 months. Social History Household Members spouse Living Arrangements House Number of Floors (Floors) 3 or More Floors Number of Stairs To Enter/Railing? pt lives in a split level house: has a chair lift to each level of the house Home Environment High Toilet,Tub/Shower,Built- In Shower Seat Home Equipment Front Wheel Walker,Manual Wheelchair,Hand Held Shower, Hospital Bed,Grab Bars Near Toilet,Grab Bars In Shower Additional Social History Comment pt has a walk in tub shower pt has a hospital bed with bilateral bed rails M2 PT-IP Current Condition Start: 12/25/22 16:53 Freq: NEEDED Status: Active Protocol: Document 12/25/22 15:20 AB (Rec: 12/25/22 17:20 AB [id number]) Physical Therapy Current Condition Current Condition Evaluation Date 12/25/22 Treatment Diagnosis PNA; respiratory failure; generalized weakness Onset Date 12/24/22 M3 PT-IP Subjective Start: 12/25/22 16:53 Freq: NEEDED Status: Active Protocol: Document 12/25/22 15:20 AB (Rec: 12/25/22 17:20 AB [id number]) Subjective Physical Therapy Visit Type Type Initial Evaluation Visit Start Time 15:20 Visit Stop Time 16:25 Total Visit Minutes 65 Number of HOBBER Visits 0 Physical Therapy Visit Comments Patient Comments stated that he cannot stand but agreed to try; spouse encouraged pt Therapy Pain Assessment Pain When Pain Assessed At Rest Location low back Intensity 6 Scale Used Numeric (0 - 10) Description Chronic Pain Management Techniques Distraction,Modification of Treatment,Re-positioning, Timing of Activity with Medications M4 PT-IP Mobility and Gait Start: 12/25/22 16:53 Freq: NEEDED Status: Active Protocol: Document 12/25/22 15:20 AB (Rec: 12/25/22 17:20 AB [email or web address]) PT-Bed Mobility Assessment Supine to Sit Supine to Sit Maximum Assistance,Head of Bed Elevated,Bedrails Sit to Supine Sit to Supine Moderate Assistance,1 Person Assistance,Head of Bed Elevated,Bedrails PT-Transfer Assessment Sit to and From Stand Sit to and from Stand Maximum Assistance,2 Person Assistance,Use of Upper Extremities Equipment Transfer Assistive Device Gait Belt,Front Wheeled Walker Orthotic/Prosthetic Devices or Brace: No Comments Mobility Comments O2 sat: 88-92% with 4L/min O2 Pt completed supine to sit HOB elevated max A and max cues with use of bed rail. able to sit on EOB SBA. completed sit to stand x 2 attempts max A x 2 and max cues. tolerated ~ 5 sec of standing and needing to sit down. max a x2 for standing balance using FWW. pt needing to reposition closer to HOB and agreed to stand up again and take steps. completed sit to stand max A x 2 and max cues and was able to take 2-3 steps using FWW max A x 2 and max cues. R knee buckling and needing max verbal and tactile cues for quads activation. pt rested and repeated task again. pt with decrease standing tolerance needing frequent rest breaks. completed sit to supine mod A and cues with use of bed rail. max A x 2 for bed positioning. call light and table placed within reach. Gait Assessment Comments Gait Comments able to take side steps using fWW max A x 2 to position closer to HOB PT-Balance Assessment Sitting Balance and Reactions Static Sitting Balance Ability Good Dynamic Sitting Balance Ability Good Standing Balance and Reactions Static Standing Balance Ability Poor Dynamic Standing Balance Ability Poor Device Used FWW M5 PT-IP Objective Assessments Start: 12/25/22 16:53 Freq: NEEDED Status: Active Protocol: Document 12/25/22 15:20 AB (Rec: 12/25/22 17:20 AB [email or web address]) Orientation Orientation/Cognition Level of Alertness Alert Orientation Name,Place,Situation Language Function Ability Hard of Hearing Safety Awareness Decreased Safety Awareness Memory Description Short Term Impaired Gross Range of Motion Lower Extremity ROM Assessment Right Impaired Impairments R knee limited extension ~ 20 deg less to 0 Strength Lower Extremity Strength Assessment Right Impaired Hip 3+/5 Knee 3/5 Muscle Tone Muscle Tone WNL Yes M6 PT-IP Treatment Start: 12/25/22 16:53 Freq: NEEDED Status: Active Protocol: Document 12/25/22 15:20 AB (Rec: 12/25/22 17:20 AB [email or web address]) Physical Therapy Treatment Education Education Provided Safety M7 PT-IP Assessment and Plan Start: 12/25/22 16:53 Freq: NEEDED Status: Active Protocol: Document 12/25/22 15:20 AB (Rec: 12/25/22 17:20 AB [email or web address]) PT Summary Assessment and Plan Potential Rehabilitation Potential Fair Status of Condition at Evaluation Evolving Summary Impairments Pain,ROM,Strength,Balance, Coordination,Sensation,Tone, Cognition,Bed Mobility, Transfers,Gait,Activity Tolerance Assessment Summary pt admitted for respiratory failure due to PNA. pt with h /o SCI and decubitus ulcers. pt currently requiring max A x 2 for mobility using FWW and presents with R knee buckling affecting mobility. pt has a chair/stair lift to get into his split level house but has to be able to stand to transfer. pt stated that he has not been able to stand since July of this year. informed pt and spouse that pt will need SNF rehab. Pt refusing and stated that they want him to go to a [facility] for wound care. spouse stated that afterwards, he might be able to to to [facility] for rehab. will continue to assess progress. Goals Bed Mobility Goal Standby Assistance Transfer Goal Minimal Assistance,Front Wheeled Walker Frequency of Treatment Frequency Of Treatment Once a Day Treatment Plan Physical Therapy Treatment Plan Bed Mobility Training,Transfer Training,Therapeutic Exercise ,Balance Retraining,Post Op Education,Discharge Planning, Hot or Cold Pack,Neuromuscular Re-ed,Coordination Retraining ,Manual Therapy Precautions Other Precautions O2 sat, Recommendations To Nursing Amount of Assist Needed Mechanical Lift Discharge Recommendations PT Discharge Recommendations SNF Rehab Transportation Needs at Discharge Wheelchair/Cabulance,Stretcher /Ambulance
[2022-12-25] MEDS: methylPREDNISolone 125 MG/2 ML VIAL 60 MG IV (17:08)
--- NOTE | 2022-12-25 19:36 | PC.NURSE ---
Wound care done 12/25/22 at 1500. Culture taken and sent to lab. Allevyn and silicone cream applied. Measurements: R Upper inner posterior thigh 8.5cm long x 6.5 wide x 0.2 cm deep; 1 cm slough Coccyx 4 cm long x 3.5 wide x 1 cm deep Varied excoriation/pressure wounds posterior scrotum, interior buttocks, perianal area, left upper interior posterior thigh
[2022-12-25] MEDS: ACETAMINOPHEN 325 MG TABLET 650 MG PO (21:51)
[2022-12-26] VITALS (10 sets, daily range): BP systolic 106–127; BP diastolic 57–76; PULSE 71–88; RESP 16–22; TEMP 36.1–36.5; O2SAT 88–96
--- NOTE | 2022-12-26 02:52 | PC.NURSE ---
RT was notified that pt keeps removing Oxymizer and desats to 78-80 when mask is off. Once mask is on at 3-4 L, SpO2 88-90%; order is to keep SpO2 at 88%. Pt respirations even and unlabored; coughs intermittently, non-productive. RT advised nasal cannula is okay up to 6 LPM as long as SpO2 is not greater than 98% d/t hx of COPD. RN (blog writer) placed pt on 4 L NC at first but SpO2 dropped to 70% then slowly went up 80% on 6 L NC. Oxymizer was placed back on pt and SpO2 went up to 85% then 88-90%; SpO2 now between 89-90%. Pt was instructed to keep mask on in order to maintain proper oxygenation; pt verbalized understanding. Pt's call light is within's pt's reach.
[2022-12-26] MEDS: methylPREDNISolone 125 MG/2 ML VIAL 60 MG IV ×2 (03:57→17:01)
[2022-12-26 05:49] LABS: Add Manual Diff / Slide Review NO; Basophils Absolute Auto 0 /uL (0-100); Basophils Percent Auto 0.2 % (0-2); Eosinophils Absolute Auto 0 /uL (0-450); Hematocrit 38.9 % (41-53); Hemoglobin 12.3 g/dL (13.5-17.5); Lymphocytes Absolute Auto 1800 /uL (1100-4500); Lymphocytes Percent Auto 13.8 % (25-40); Mean Corpuscular HGB Conc 31.6 % (30-36); Mean Corpuscular Hemoglobin 25.3 PG (26-34); Mean Corpuscular Volume 80.1 fL (80-100); Monocytes Absolute Auto 300 /uL (0-900); Monocytes Percent Auto 2.1 % (3-14); Neutrophils Absolute Auto 10900 /uL (1500-7000); Neutrophils Percent Auto 83.9 % (50-75); Platelet Count 320 X10^3/uL (150-400); Red Blood Cell Count 4.86 X10^6/uL (4.5-5.9); White Blood Cell Count 12.9 X10^3/uL (4.5-11.0)
[2022-12-26 06:00] LABS: BUN Creatinine Ratio 36.8 (6-22); Blood Urea Nitrogen 25 mg/dL (9-20); Calcium 8.6 mg/dL (8.4-10.2); Carbon Dioxide 31 mmol/L (22-32); Chloride 100 mmol/L (98-107); Estimated Glomerular Filt Rate > 60 mL/min (>60); Glucose 186 mg/dL (80-110); HEMOLYSIS < 15 (0-50); Potassium 4.6 mmol/L (3.4-5.1); Sodium 137 mmol/L (137-145)
--- NOTE | 2022-12-26 07:35 | P.PN_ITS ---
Subjective Subjective Interval history: Currently on 4L NC. Patient says his cough seems to be improving some. Otherwise not much has changed. Exam Vital Signs (past 8 hours): - 12/25/22 23:55 12/25/22 23:55 12/26/22 03:00 Temperature Pulse Rate Respiratory Rate 17 Blood Pressure Pulse Oximetry 89 L Oxygen Delivery Method Oximask Oximask Oxygen Flow Rate 4 12/26/22 03:00 12/26/22 03:19 Temperature 96.9 F L Pulse Rate 79 Respiratory Rate 18 18 Blood Pressure 116/69 Pulse Oximetry 89 L 88 L Oxygen Delivery Method Oxygen Flow Rate 4 5 Oxygen Delivery Method Oximask Oxygen Flow Rate 5 Narrative Exam Narrative: General: Patient is a well-developed, well-nourished in no acute distress at this time. Obese. HEENT: Normocephalic, atraumatic, extraocular muscles intact, oral pharynx is clear and mucous membranes are moist. Neck is supple and symmetric, trachea is midline, no adenopathy, no thyroid enlargement, nontender, no masses palpated. Negative for JVD Chest: Pacemaker upper right, Equal chest rise without nasal flaring, retractions. mild shallow, tachypneic, labored breathing. Lungs: Auscultation of all lung [place] are decreased, poor air exchange, d iffuse expiratory wheezing throughout, decreased in bilateral bases. Cardio: regular rate and rhythm without murmur, rubs, or gallops, no carotid bruit, no cardiac pulsations present. Abdomen: Soft nontender, negative for organomegaly, or masses. Bowel sounds are present in all 4 quadrants without guarding or rebound, no CVA tenderness. Ferguson in place Musculoskeletal: Muscle strength and tone are equal, no deformity, crepitus, effusions, cyanosis, clubbing present. Positive right lower extremity trace nonpitting edema, greater than left. Full range of motion intact radial and pedal pulses are normal. Skin: Warm dry and intact without rashes, multiple wounds to posterior scrotum. Neuro: Alert and orientated x3, moves all extremities, sensation to touch intact, no gross deficits noted of cranial nerves. Psych: Patient has a well-kept appearance, appropriate affect, mental status at titude thought context and judgment are appropriate for age. Objective Labs 12/26/22 05:35 12/26/22 05:35 Labs: Laboratory Results - last 24 hr 12/26/22 12/26/22 05:35 05:35 WBC 12.9 H RBC 4.86 Hgb 12.3 L Hct 38.9 L MCV 80.1 MCH 25.3 L MCHC 31.6 RDW 17.0 H Plt Count 320 Neut % (Auto) 83.9 H D Lymph % (Auto) 13.8 L [place] % (Auto) 2.1 L Eos % (Auto) 0.0 L Baso % (Auto) 0.2 Neut # (Auto) 05018 H Lymph # (Auto) 1800 [place] # (Auto) 300 Eos # (Auto) 0 Baso # (Auto) 0 Sodium 137 Potassium 4.6 Chloride 100 Carbon Dioxide 31 BUN 25 H Creatinine 0.68 Estimated GFR > 60 BUN/Creatinine Ratio 36.8 H Glucose 186 H Calcium 8.6 PFSH Medical History Chronic anticoagulation Chronic indwelling Ferguson catheter Congestive heart failure Coronary artery disease History of VA (myocardial infarction) Hyperlipidemia Hypertension Intermittent self-catheterization of bladder Pacemaker Paraplegic spinal paralysis Spinal cord injury, incomplete Surgical History History of coronary artery stent placement History of laminectomy History of right knee joint replacement Family History Father Congestive heart failure Mother Cancer Social History household members: spouse Smoking Status: Never smoker alcohol intake: never Assessment & Plan Assessment & Plan narrative: Joey Grover is an 82-year-old male with a hx of CHF, VA stent x2, pacer on chronic Eliquis, HTN, HLD, CAD, history of right leg DVT, incomplete SCI paraplegic (reported secondary to laminectomy in 2002 that resulted in spinal Staph infection), intermittent catheterization during day &? Ferguson nightly, who is admitted for acute hypoxic respiratory failure secondary to pneumonia. Gentle hydration, monitoring for fluid overload, Levaquin IV antibiotics pending blood, sputum, and urine cultures pending, goal to discharge titrating patient down off O2 to an O2 saturation of 88% on room air. Acute hypoxic, hypercapnic respiratory failure secondary to pneumonia, acute, present on admission * sat's: 80s% on rm air EMS/ED. Patient is not on any chronic O2. initial: 6L/NC, has been tapered down to 3 L/NC O2 saturation of 98%. Suspect COPD exacerbation from viral illness with underlying DANIEL/OHS contributing. * CTA: Negative for PE, Mild pruning of distal pulmonary arteries.? Cannot rule out chronic pulmonary embolism.? Mild enlargement of central pulmonary artery, Moderate cardiomegaly.? There is coronary artery disease, and Mild mediastinal and bilateral hilar lymphadenopathy. * Lactate neg, albumin 3.3, CRP 5.6, BNP 688, procal neg, MRSA neg, respiratory panel negative. 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 * Patient has multiple posterior scrotal wounds: Will order dressing changes q.day, wound culture * 08/02/2022 decubitus buttocks wound culture : Proteus mirabilis strep group B * Urine culture pending * On last admit recommend that patient stop useage of indwelling ferguson, consider urology o/p consult for urinary cath port access like suprapubic catheter. Possible undiagnosed DANIEL, present on admission * Bicarb elevated on BMP at 31, patient is morbidly obese * no h/o DANIEL but I suspect he has this as well as OHS * CPAP ordered at night Incomplete SCI, paraplegic, neurological function deterioration, frequent falls, chronic, present on admission * recommend rehab * PT OT evaluation * recommend patient consult Neurology/and or est care SCI specialist at for on-going management * Fall precautions Congestive heart failure, chronic, with a history of VA, stent x2, pacemaker on chronic anticoagulation, present on admission * low-sodium diet, daily weights * Continue Lasix, Eliquis * echo pending as above Right leg edema, with erythema, chronic, present on admission * history of DVT in right lower leg, progressive leg weakness, edema greater to rt/lt. 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 The patien t's obesity increases the difficulty and complexity of medical and/or surgical interventions, management and increases the chances of poor outcome such as morbidity and mortality as well as impaired wound healing.? Code status:Full DVT/VTE prophylaxis:Devon Zaidi only Disposition: Pending weaning of O2. Likely 2 more days.
[2022-12-26] MEDS: ALBUTEROL/IPRATROPIUM 3 ML AMPUL INH ×3 (07:42→19:25)
[2022-12-26] MEDS: GABAPENTIN 600 MG TABLET PO ×3 (08:25→20:56)
[2022-12-26] MEDS: APIXABAN 5 MG TABLET 2.5 MG PO ×2 (08:25→20:56)
[2022-12-26] MEDS: guaiFENesin ER 600 MG TAB PO ×2 (08:25→20:56)
[2022-12-26] MEDS: ATORVASTATIN 20 MG TABLET 40 MG PO (08:25)
[2022-12-26] MEDS: levoFLOXacin 750 MG/150 ML PIGGYBACK 100 MG IV (08:26)
--- NOTE | 2022-12-26 12:07 | PT.IPTN ---
Current Diagnoses Acute respiratory failure with hypoxia (12/24/22) Physical Therapy Treatment Note M2 PT-IP Current Condition Start: 12/25/22 16:53 Freq: NEEDED Status: Active Protocol: Document 12/25/22 15:20 AB (Rec: 12/25/22 17:20 AB [id number]) Physical Therapy Current Condition Current Condition Evaluation Date 12/25/22 Treatment Diagnosis PNA; respiratory failure; generalized weakness Onset Date 12/24/22 M3 PT-IP Subjective Start: 12/25/22 16:53 Freq: NEEDED Status: Active Protocol: Document 12/26/22 11:54 ES (Rec: 12/26/22 12:06 ES [id number]) Subjective Physical Therapy Visit Type Type Treatment Note Visit Start Time 10:49 Visit Stop Time 11:53 Total Visit Minutes 72 Number of NITROCELLULOSE MAKER Visits 0 Physical Therapy Visit Comments Patient Comments Patient agreeable to work with PT, requested to use the BSC. Reported he has used a sit to stand lift before at SNF, and has tried slideboard transfers but he tended to stick to the board and it was difficult for him. M4 PT-IP Mobility and Gait Start: 12/25/22 16:53 Freq: NEEDED Status: Active Protocol: Document 12/26/22 11:54 ES (Rec: 12/26/22 12:06 ES [id number]) PT-Bed Mobility Assessment Supine to Sit Supine to Sit Moderate Assistance,Head of Bed Elevated,Bedrails Scooting Scooting to Edge of Bed Standby Assistance PT-Transfer Assessment Sit to and From Stand Sit to and from Stand Maximum Assistance Equipment Transfer Assistive Device Mechanical Lift Orthotic/Prosthetic Devices or Brace: No Transfers Transfer Destination Chair,Bedside Commode Transfer Technique Mechanical Lift Comments Mobility Comments Performed supine to sit toward R side with HOB elevated to 45 degrees. PT assisted trunk to upright. Performed transfers using sit to stand lift bed to BSC to recliner. Cued patient to increase glute activation for more upright posture and to increase participation in standing. Able to remain standing in STS lift for ~3 minutes for pericare without problem, with intermittent cueing for more hip and knee extension. Waffle cushions placed under hips in recliner for pressure relief. PT-Balance Assessment Sitting Balance and Reactions Static Sitting Balance Ability Good Dynamic Sitting Balance Ability Good M5 PT-IP Objective Assessments Start: 12/25/22 16:53 Freq: NEEDED Status: Active Protocol: Document 12/25/22 15:20 AB (Rec: 12/25/22 17:20 AB [id number]) Orientation Orientation/Cognition Level of Alertness Alert Orientation Name,Place,Situation Language Function Ability Hard of Hearing Safety Awareness Decreased Safety Awareness Memory Description Short Term Impaired Gross Range of Motion Lower Extremity ROM Assessment Right Impaired Impairments R knee limited extension ~ 20 deg less to 0 Strength Lower Extremity Strength Assessment Right Impaired Hip 3+/5 Knee 3/5 Muscle Tone Muscle Tone WNL Yes M6 PT-IP Treatment Start: 12/25/22 16:53 Freq: NEEDED Status: Active Protocol: Document 12/26/22 11:54 ES (Rec: 12/26/22 12:06 ES [id number]) Physical Therapy Treatment Exercises Exercises Ankle Pumps,Quad Sets,Heel Slides Other Treatments Other Treatment Performed Education on importance of doing frequent movement of LE expecially knee extension/quad sets to reduce risk of further contractures in LE's and to reduce risk of blood clots. M7 PT-IP Assessment and Plan Start: 12/25/22 16:53 Freq: NEEDED Status: Active Protocol: Document 12/26/22 11:54 ES (Rec: 12/26/22 12:06 ES [id number]) PT Summary Assessment and Plan Summary Impairments Pain,ROM,Strength,Balance, Coordination,Sensation,Tone, Cognition,Bed Mobility, Transfers,Gait,Activity Tolerance Progress Towards Goals Progressing Toward Goals Assessment Summary Patient demonstrated improved ability to perform bed mobility with decreased assistance. He was able to transfer bed to [facility] safely with use of sit to stand lift, with good active participation in the transfer with cueing. SPO2 remained stable around 90-92% on 5L/min O2 via oxymask during activity. He will benefit from further therapy to increase strength in order to increase independence and safety with mobility. Continue to recommend subacute rehab in order to regain the ability to perform stand pivot transfers to be able to get in /out of his home and participate in normal daily activity. Goals Bed Mobility Goal Standby Assistance Transfer Goal Minimal Assistance,Front Wheeled Walker Frequency of Treatment Frequency Of Treatment Once a Day Treatment Plan Physical Therapy Treatment Plan Bed Mobility Training,Transfer Training,Therapeutic Exercise ,Balance Retraining,Post Op Education,Discharge Planning, Hot or Cold Pack,Neuromuscular Re-ed,Coordination Retraining ,Manual Therapy Other Recommendations and Next Treatment Progress standing tolerance, Focus LE strength, surface to surface transfers with LRAD ( lift vs slideboard vs squat/ stand pivot). Precautions Other Precautions Monitor SPO2 Recommendations To Nursing Amount of Assist Needed Mechanical Lift Discharge Recommendations PT Discharge Recommendations SNF Rehab Transportation Needs at Discharge Wheelchair/Cabulance,Stretcher /Ambulance
--- NOTE | 2022-12-26 12:46 | DI.ECHO.S_ITS ---
[facility] +---------+ [facility] +---------+ : : [address] [address] : : : : [id number] : : : : Phone: [phone]+ Echocardiogram Report + + :Name: GLORIA ADLER Study Date: 12/27/2022 Height: 70 in : :[facility] ReadingLocation: Weight: 307 lb : : Gender: Male BSA: 2.5 m2 : :: 1940 Age: 82 yrs BP: 125/79 mmHg: :Reason For Study: Assess for CHF or Pulmonary Hypertension : :Ordering Physician: Donny, : :Ye Performed By: Ashley Barragan : :Referring: YE JOSHI A : + + Interpretation Summary Technically difficult study. Normal left ventricle size with ejection fraction 55 +/- 5%. The interventricular septum is flattened, consistent with a right ventricular pressure/volume condition. Moderately dilated right ventricle with normal right ventricular systolic function. There is a pacemaker lead in the right ventricle. The right atrium is mildly dilated. No significant valvular abnormality. The right ventricular systolic pressure is estimated to be at least 43 mmHg based on an estimated right atrial pressure of 15 mm Hg. Procedure: A two-dimensional transthoracic echocardiogram with color flow and Doppler was performed. The study quality was technically difficult. A contrast injection of Definity was performed to improve assessment of LV function. The patient was in normal sinus rhythm during the exam. Left Ventricle: The left ventricle is normal in size. Left ventricular ejection fraction is estimated to be 55 +/- 5%. The interventricular septum is flattened, consistent with a right ventricular pressure/volume condition. Diastolic parameters suggest a relaxation abnormality of the left ventricle, consistent with probable normal filling pressures. Right Ventricle: The right ventricle is moderately dilated. There is a pacemaker lead in the right ventricle. The right ventricular systolic function is normal. Atria: The left atrial size is normal. The right atrium is mildly dilated. There is no Doppler evidence for an interatrial shunt. Mitral Valve: The mitral valve leaflets appear mildly thickened, but open well. There is no mitral valve stenosis. There is trace mitral regurgitation. Aortic Valve: Aortic valve is not well visualized but is presumably trileaflet. There is no aortic valve stenosis. No aortic regurgitation is present. Tricuspid Valve: The tricuspid valve is normal. There is no tricuspid stenosis. There is trace tricuspid regurgitation. The right ventricular systolic pressure is estimated to be at least 43 mmHg based on an estimated right atrial pressure of 15 mm Hg. Pulmonic Valve: The pulmonic valve leaflets are thin and pliable; valve motion is normal. There is no pulmonic valvular stenosis. There is trace pulmonic regurgitation. Great Vessels: The aortic root is normal size. The ascending aorta is normal in size. The pulmonary artery is normal size. The IVC is dilated (diameter is greater than 2.1 cm) and it collapses less than 50% with a sniff. This suggests a high right atrial pressure of 15 mm Hg. Pericardium/ Pleura There is no pericardial effusion. There is no pleural effusion. MMode/2D Measurements & Calculations LVIDd: 4.7 cm LVOT diam: 1.9 cm LVIDs: 3.1 cm Ao root diam: 3.3 cm FS: 34.0 % asc Aorta Diam: 3.5 cm EPSS: 0.50 cm IVSd: 1.0 cm LVPWd: 1.4 cm LV toscano. diameter/BSA (cm/m^2): 1.9 LV sys. diameter/BSA (cm/m^2): 1.2 LA A2 area: 24.3 cm2 RA long axis: 5.6 cm LA A4 area: 20.3 cm2 RA area: 22.6 cm2 LA length (vol): 6.5 cm RA vol: 77.8 ml LA vol: 64.4 ml RA : 31.1 ml/m2 LA vol index: 25.7 ml/m2 RVD1 (basal): 5.5 cm LVLs ap4: 6.1 cm LVLd ap2: 7.3 cm TAPSE_phl: 2.1 cm LVLs ap2: 6.1 cm Doppler Measurements & Calculations Ao V2 max: 146.0 cm/sec LVOT Max Xu: 89.4 cm/sec Ao V2 mean: 103.0 cm/sec LV V1 max P.2 mmHg Ao max P.0 mmHg LV V1 VTI: 21.8 cm Ao mean P.0 mmHg JERMAN(I,D): 1.7 cm2 Ao V2 VTI: 36.7 cm JERMAN(V,D): 1.7 cm2 sev ratio: 0.59 JERMAN indexed to BSA (cm^2/m^2): 0.67 MV E max xu: 72.8 cm/sec TR max xu: 267.4 cm/sec MV A max xu: 79.7 cm/sec TR max P.6 mmHg MV E/A: 0.91 PA V2 max: 103.0 cm/sec Med Peak E' Xu: 7.4 cm/sec PA V2 mean: 71.0 cm/sec E/E' med: 9.9 PA mean P.0 mmHg Lat Peak E' Xu: 7.5 cm/sec PA pr(Accel): 44.4 mmHg E/E' lat: 9.7 E/e' average: 9.8 MV dec time: 0.18 sec SV(LVOT): 61.8 ml AV VR_phl: 0.61 JERMAN(VTI)/BSA_phl: 0.68 Electronically signed by: Kaleigh Russo on Reading Physician:12/27/2022 01:02 PM
--- NOTE | 2022-12-26 13:20 | CM.DPNOTE ---
Addendum entered by Nancy Cason R.N. 12/26/22 13:53: Spoke with Imani at [facility] ([place]). She confirms they have had him in the past and like him. She states they have beds first of the week to accept him. Referral sent. LOLA Original Note: Discharge Planning Note: Incomplete paraplegic patient here with respiratory compromise sitting up in recliner chair. to come in later this afternoon. 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 Wounds also to posterior scrotum, posterior inner upper thighs look to be caused by a mix of pressure and incontinence issues and abrasion from moving in bed. He receives [facility] HH services RN for wound care 3x a week, using [employer]. His spouse Marguerite is a retired SHAPING MACHINE OPERATOR and performs his wound care the other 4 days. PT has recommended SNF Rehab. He has been to [facility] in the past and [facility] will review him tomorrow. They had issues with him in past because of poor discharge plan. Patient states he doesn't want to go to [facility] due to they charged him a daily rate after Medicare ran out, etc. He states he doesn't want any SNF and only wants to go to the [place] hospital so they can treat his wounds. This DCP tried to educate him that that isn't feasible for him at this point. Dr Hines aware. Called and spoke with spouse Marguerite and explained the above. She says he's been in [facility] in the past and he likes it there, she states. This DCP will send Referral to [facility]. Spouse is in agreement. PLAN: Continue to work with patient and spouse re plan for SNF Rehab. Follow up with [facility]. Address his thinking we can transfer him to [place] which he does not want to hear (have explained to and she is reasonable but wants to call [place] tomorrow. Marcela Cason RN/DCP
[2022-12-26] MEDS: ACETAMINOPHEN 325 MG TABLET 650 MG PO (20:56)
[2022-12-27] VITALS (8 sets, daily range): BP systolic 112–134; BP diastolic 51–76; PULSE 67–76; RESP 17–22; TEMP 35.8–36.4; O2SAT 91–95
[2022-12-27] MEDS: methylPREDNISolone 125 MG/2 ML VIAL 60 MG IV ×2 (03:48→16:23)
[2022-12-27 04:34] LABS: Add Manual Diff / Slide Review NO; Basophils Absolute Auto 100 /uL (0-100); Basophils Percent Auto 0.7 % (0-2); Eosinophils Absolute Auto 0 /uL (0-450); Hematocrit 37.9 % (41-53); Hemoglobin 12.1 g/dL (13.5-17.5); Lymphocytes Absolute Auto 2300 /uL (1100-4500); Mean Corpuscular HGB Conc 31.9 % (30-36); Mean Corpuscular Hemoglobin 25.6 PG (26-34); Mean Corpuscular Volume 80.3 fL (80-100); Monocytes Absolute Auto 600 /uL (0-900); Monocytes Percent Auto 3.1 % (3-14); Neutrophils Absolute Auto 14800 /uL (1500-7000); Neutrophils Percent Auto 83.2 % (50-75); Platelet Count 330 X10^3/uL (150-400); Red Blood Cell Count 4.72 X10^6/uL (4.5-5.9); Red Cell Distribution Width 17.4 % (11.6-14.8); White Blood Cell Count 17.8 X10^3/uL (4.5-11.0)
[2022-12-27 04:46] LABS: BUN Creatinine Ratio 46.9 (6-22); Blood Urea Nitrogen 30 mg/dL (9-20); Calcium 8.6 mg/dL (8.4-10.2); Carbon Dioxide 32 mmol/L (22-32); Chloride 101 mmol/L (98-107); Estimated Glomerular Filt Rate > 60 mL/min (>60); Glucose 163 mg/dL (80-110); HEMOLYSIS < 15 (0-50); Potassium 4.8 mmol/L (3.4-5.1); Sodium 138 mmol/L (137-145)
[2022-12-27] MEDS: ALBUTEROL/IPRATROPIUM 3 ML AMPUL INH ×2 (08:29→13:03)
[2022-12-27] MEDS: guaiFENesin ER 600 MG TAB PO ×2 (09:04→21:41)
[2022-12-27] MEDS: levoFLOXacin 750 MG/150 ML PIGGYBACK 100 MG IV (09:04)
[2022-12-27] MEDS: GABAPENTIN 600 MG TABLET PO ×3 (09:04→21:41)
[2022-12-27] MEDS: APIXABAN 5 MG TABLET 2.5 MG PO ×2 (09:04→21:41)
[2022-12-27] MEDS: DOCUSATE 100 MG CAPSULE PO (09:04)
--- NOTE | 2022-12-27 13:40 | PT.IPTN ---
Current Diagnoses Acute respiratory failure with hypoxia (12/24/22) Physical Therapy Treatment Note M2 PT-IP Current Condition Start: 12/25/22 16:53 Freq: NEEDED Status: Active Protocol: Document 12/25/22 15:20 AB (Rec: 12/25/22 17:20 AB [id number]) Physical Therapy Current Condition Current Condition Evaluation Date 12/25/22 Treatment Diagnosis PNA; respiratory failure; generalized weakness Onset Date 12/24/22 M3 PT-IP Subjective Start: 12/25/22 16:53 Freq: NEEDED Status: Active Protocol: Document 12/27/22 14:12 TS (Rec: 12/27/22 14:27 TS [id number]) Subjective Physical Therapy Visit Type Type Treatment Note Visit Start Time 13:40 Visit Stop Time 14:02 Total Visit Minutes 22 Number of ADMINISTRATIVE SERVICES DIRECTOR Visits 1 Physical Therapy Visit Comments Patient Comments Pt found resting in bed, reports wanting to stand with FWW today, agreeable to PT. M4 PT-IP Mobility and Gait Start: 12/25/22 16:53 Freq: NEEDED Status: Active Protocol: Document 12/27/22 14:12 TS (Rec: 12/27/22 14:27 TS [id number]) PT-Bed Mobility Assessment Supine to Sit Supine to Sit Minimal Assistance,1 Person Assistance,Head of Bed Elevated,Bedrails Scooting Scooting to Edge of Bed Contact Guard Assistance PT-Transfer Assessment Sit to and From Stand Sit to and from Stand Maximum Assistance Equipment Transfer Assistive Device Gait Belt,Front Wheeled Walker Orthotic/Prosthetic Devices or Brace: No Transfers Transfer Destination Chair Transfer Technique Stand Pivot Transfer Ability Level of Assist Maximum Assistance,1 Person Assistance Comments Mobility Comments Pt found resting in bed @91% Spo2 4L. Supine to sit CGA with HOB elevated 50D, heavy use of BUEs with handrail assist sitting up. Sit to stand with FWW MaxA x1 with BUE support on FWW, provided cues for knee ext and pt unable to stand up straight. He performed stand step pivot transfer to chair MaxA with decreased step length/height, retroleaning increased with time, LEs starting to buckle due to fatigue. Stand to sit in chair provided cues for BUE support for eccentric control into chair. He performed sit to stand x2 from chair MaxA for adjustemnt of pillows and waffle cushions on chair. He was left in the chair with call light nearby, RN notified . Gait Assessment Comments Gait Comments Stand step pivot transfer to chair. See mobility comments. PT-Balance Assessment Sitting Balance and Reactions Static Sitting Balance Ability Good Dynamic Sitting Balance Ability Fair Standing Balance and Reactions Static Standing Balance Ability Poor Dynamic Standing Balance Ability Poor Device Used FWW M5 PT-IP Objective Assessments Start: 12/25/22 16:53 Freq: NEEDED Status: Active Protocol: Document 12/25/22 15:20 AB (Rec: 12/25/22 17:20 AB [id number]) Orientation Orientation/Cognition Level of Alertness Alert Orientation Name,Place,Situation Language Function Ability Hard of Hearing Safety Awareness Decreased Safety Awareness Memory Description Short Term Impaired Gross Range of Motion Lower Extremity ROM Assessment Right Impaired Impairments R knee limited extension ~ 20 deg less to 0 Strength Lower Extremity Strength Assessment Right Impaired Hip 3+/5 Knee 3/5 Muscle Tone Muscle Tone WNL Yes M6 PT-IP Treatment Start: 12/25/22 16:53 Freq: NEEDED Status: Active Protocol: Document 12/26/22 11:54 ES (Rec: 12/26/22 12:06 ES [id number]) Physical Therapy Treatment Exercises Exercises Ankle Pumps,Quad Sets,Heel Slides Other Treatments Other Treatment Performed Education on importance of doing frequent movement of LE expecially knee extension/quad sets to reduce risk of further contractures in LE's and to reduce risk of blood clots. M7 PT-IP Assessment and Plan Start: 12/25/22 16:53 Freq: NEEDED Status: Active Protocol: Document 12/27/22 14:12 TS (Rec: 12/27/22 14:27 TS [id number]) PT Summary Assessment and Plan Potential Rehabilitation Potential Fair Summary Impairments Pain,ROM,Strength,Balance, Coordination,Sensation,Tone, Cognition,Bed Mobility, Transfers,Gait,Activity Tolerance Progress Towards Goals Progressing Toward Goals Assessment Summary Pt made some progress with his mobiltiy this session. He continues to be SBA/CGA with bed mobility, he requires HOB elevated and handrail assist to upright trunk. He progressed his sit to stands MaxA x1 and performed stand step pivot transfer to chair MaxA. Pt with increased retroleaning and increased buckling with knees due to fatigue with pivot transfer. Spo2 dropped to 86% after mobilization from 91% of o2 on 4L at rest, ~1min to recover. PT is recommending SNF rehab at this time to progress bed mobility, transfers and gait. Goals Bed Mobility Goal Standby Assistance Transfer Goal Minimal Assistance,Front Wheeled Walker Frequency of Treatment Frequency Of Treatment Once a Day Treatment Plan Physical Therapy Treatment Plan Bed Mobility Training,Transfer Training,Therapeutic Exercise ,Balance Retraining,Post Op Education,Discharge Planning, Hot or Cold Pack,Neuromuscular Re-ed,Coordination Retraining ,Manual Therapy Other Recommendations and Next Treatment Progress standing tolerance, Focus LE strength, surface to surface transfers with LRAD ( lift vs slideboard vs squat/ stand pivot). Precautions Other Precautions Monitor SPO2 Recommendations To Nursing Amount of Assist Needed 2 Person Assist,Mechanical Lift,Power Sit-Stand Discharge Recommendations PT Discharge Recommendations SNF Rehab Transportation Needs at Discharge Wheelchair/Cabulance,Stretcher /Ambulance
--- NOTE | 2022-12-27 14:25 | CM.DPC ---
DCP Continued: SENIOR ASP NET DEVELOPER spoke with Imani at [facility]. Imani reported that patient has used his 100 days of coverage through Medicare and it will not reset until tomorrow. Imani reported that she filled out [employer] auth forms and is attempting to get the auth from them. Patient is currently on 3 ltrs of , pending home eval. If auth is approved, Imani reports she can accept tomorrow, 12/28, but is unclear on a potential time for transport. SENIOR ASP NET DEVELOPER left with spouse, Marguerite ([phone]) regarding plan for d/c. Plan: Plan A) pending auth. if approved, cabulance to [facility] at time to be determined. Plan B) if not approved, home with resumption of signature HH. GILDA Eastman
--- NOTE | 2022-12-27 14:28 | OT.IP.EVAL ---
Current Diagnoses Acute respiratory failure with hypoxia (12/24/22) Past Medical History (Last Reviewed 12/25/22 @ 00:50 by MALLIKA Vela) Chronic anticoagulation Chronic indwelling Ferguson catheter Congestive heart failure Coronary artery disease History of [place] (myocardial infarction) Hyperlipidemia Hypertension Intermittent self-catheterization of bladder Pacemaker Paraplegic spinal paralysis Spinal cord injury, incomplete Surgical History (Last Reviewed 12/25/22 @ 00:50 by MALLIKA Vela) History of coronary artery stent placement History of laminectomy History of right knee joint replacement Occupational Therapy Inpatient Evaluation/Re-Eval M1 PT/OT-IP Prior Functional Status Start: 12/25/22 16:53 Freq: NEEDED Status: Active Protocol: Document 12/27/22 15:54 CGR (Rec: 12/27/22 16:17 CGR [id number]) Medical Review Prior Functional Status Medical History Reviewed Yes Communication able to make needs known Mobility and Gait pt able to provide PLOF and home set up but spouse in room confirms/denies info and provided more details. pt was admitted to [facility] 08/02/22 to 08/09/22 for decubitus ulcers. spouse stated that he was d/c to [facility] after that and d/c home and was able to stand pivot without AD to get into their chair stair lift to get into bed room level. pt has a 2 w/c to use. one for outdoors and another indoors. spouse stated that prior to July's hospitalization, he was hospitalized and was d/c to [facility] for rehab but went home afterwards when insurance ran out. spouse stated that since since pt got home last july, he was not able to stand. spouse assists pt with mobility and a neighbor comes in to assists with squat pivot transfers of total A per spouse. pt would spend his day on his w/c from ~ 8 am until night time. spouse stated that a nurse comes in 3x/wk for wound care and also has PT and OT services once a week. pt is non ambulatory and stated that he has not walked for > 6 months. Activities of Daily Living and IADL's Pt states that recently, pt has needed assist for all LB dressing and bathing. Pt is able to make a simple breakfast and do simple ADLs at sink. Pt states he brushes his teeth about twice a month and can don his own shirt. Social History Household Members spouse Living Arrangements House Number of Floors (Floors) 3 or More Floors Number of Stairs To Enter/Railing? pt lives in a split level house: has a chair lift to each level of the house Home Environment High Toilet,Tub/Shower,Built- In Shower Seat Home Equipment Front Wheel Walker,Manual Wheelchair,Hand Held Shower, Hospital Bed,Grab Bars Near Toilet,Grab Bars In Shower Additional Social History Comment pt has a walk in tub shower pt has a hospital bed with bilateral bed rails M2 OT-IP Current Condition Start: 12/27/22 15:54 Freq: Status: Active Protocol: Document 12/27/22 15:54 CGR (Rec: 12/27/22 16:17 CGR [id number]) Occupational Therapy Current Condition Current Condition Evaluation Date 12/27/22 Treatment Diagnosis PNA, respiratory failure Diagnosis Onset Date 12/24/22 M3 OT- IP Subjective and Pain Start: 12/27/22 15:54 Freq: Status: Active Protocol: Document 12/27/22 15:54 CGR (Rec: 12/27/22 16:17 CGR [id number]) OT- Subjective Occupational Therapy Visit Type Type Initial Evaluation Visit Start Time 14:12 Visit Stop Time 14:28 Total Visit Minutes 16 OT Pain Assessment Pain When Pain Assessed At Rest Pain Present Pain Present Denied Pain M4 OT- IP ADL's Start: 12/27/22 15:54 Freq: Status: Active Protocol: Document 12/27/22 15:54 CGR (Rec: 12/27/22 16:17 CGR [id number]) OT [id number] Comments OT Self-Feeding Comments not meal time OT ADL-Grooming Comments OT Grooming Comments pt declined to perform OT ADL-Oral Care Comments Oral Care Comments pt declined to perform OT ADL-Dressing Comments OT Dressing Comments pt declined to perform OT ADL-Toileting General Evaluation Toileting Ability Total Assistance Comments OT Toileting Comments ferguson OT ADL-Bathing Comments OT Bathing Comments not performed M5 OT- IP IADL's Start: 12/27/22 15:54 Freq: Status: Active Protocol: Document 12/27/22 15:54 CGR (Rec: 12/27/22 16:17 CGR [id number]) OT-Instrumental Activities of Daily Living Deficits IADL Deficits Identified No Deficits Home Safety Awareness Awareness of Need for Assistance at Home Good Awareness Ability to Problem Solve Emergency Able to Problem Solve Situations Medication Management Medication Management Caregiver Administers Money Management Money Management Caregiver Provides Assistance Meal Preparation Meal Preparation Caregiver Provides Assist Pan Washer Hand Pan Washer Hand Caregiver Provides Assist Driving Driving Comments Pt states that his vision now requires his spouse to drive. M6 OT- IP Functional Cognition Start: 12/27/22 15:54 Freq: Status: Active Protocol: Document 12/27/22 15:54 CGR (Rec: 12/27/22 16:17 CGR [id number]) Cognitive Factors Limiting Selfcare Function Cognitive Ability Level of Alertness Alert Patient Orientation Name,Age,Birthday,Month,Date, Year,Day of Week,Place, Situation Attention Span Ability Capable of Focused Attention, Capable of Sustained Attention Ability to Follow Commands Able to Follow Multi-Step Commands OT- Vision and Hearing OT- Vision Assessment Vision History Macular Degeneration Visual Acuity WFL Visual Attentiveness WFL Occular Pursuits WFL Visual Convergence WFL M8 OT- IP Objective Assessments Start: 12/27/22 15:54 Freq: Status: Active Protocol: Document 12/27/22 15:54 CGR (Rec: 12/27/22 16:17 CGR [id number]) OT Gross Range of Motion Upper Extremity Range of Motion Assessment Within Functional Limits OT Strength Comments Strength Comments B shlds 4-/5 B bicep 5-/5 B tricep 5-/5 B hands 4-/5 OT- Coordination Assessment Upper Extremity Finger to Nose Test Within Functional Limits Finger Tapping Test Within Functional Limits OT-Muscle Tone Assessment Muscle Tone WNL Yes OT Sensation Assessment Edema Edema Absent M9 OT- IP Assessment and Plan Start: 12/27/22 15:54 Freq: Status: Active Protocol: Document 12/27/22 15:54 CGR (Rec: 12/27/22 16:17 CGR [id number]) OT Summary Assessment and Plan Potential Rehabilitation Potential Good Analytic Complexity at Evaluation Moderate Summary OT Impairments Strength,Balance,Functional Mobility,Grooming,Dressing, Toileting,Bathing,Toilet Transfers,Shower Transfers, Activity Tolerance Progress Towards Goals Progressing Toward Goals Assessment Summary Pt presents as a moderate complexity evaluation s/p admit for PNA. In the last 6 months pt has had a significant decline in his abilities requiring more assist. Pt would benefit from SNF for increased mobility and strength to improve his ADLs. Recommend d/c to SNF. Goals Grooming Goal Independent Dressing Goal Independent Toileting Goal Independent Bathing Goal Independent Toilet Transfer Goal Independent Shower Transfer Goal Independent Days to Meet Goals 30 Frequency of Treatment Frequency Of Treatment Once a Day Treatment Plan OT Treatment Plan ADL Training,Functional Mobility,Patient/Family Education,Discharge Planning Other Treatment Recommendations and Next ADLs seated, UE strengthening. Treatment Focus Discharge Recommendations OT Discharge Recommendations SNF Rehab Transportation Needs at Discharge Wheelchair/Cabulance
--- NOTE | 2022-12-27 16:06 | P.PN_ITS ---
Subjective Subjective Interval history: Patient says he finally turned the corner and his breathing is much better. Still on 3L O2. PT rec SNF. Exam Vital Signs (past 8 hours): - 12/27/22 08:31 12/27/22 12:35 12/27/22 13:04 Temperature 96.6 F L Pulse Rate 67 Respiratory Rate 18 Blood Pressure 134/59 L Pulse Oximetry 91 94 92 Oxygen Delivery Method Nasal Cannula Nasal Cannula Oxygen Flow Rate 3 3 Oxygen Delivery Method Nasal Cannula Oxygen Flow Rate 3 Narrative Exam Narrative: General: Patient is a well-developed, well-nourished in no acute distress at this time. Obese. HEENT: Normocephalic, atraumatic, extraocular muscles intact, oral pharynx is clear and mucous membranes are moist. Neck is supple and symmetric, trachea is midline, no adenopathy, no thyroid enlargement, nontender, no masses palpated. Negative for JVD Chest: Pacemaker upper right, Equal chest rise without nasal flaring, retractions. mild shallow, tachypneic, labored breathing. Lungs: Auscultation of all lung [place] are decreased, poor air exchange, diffuse expiratory wheezing throughout, decreased in bilateral bases. Cardio: regular rate and rhythm without murmur, rubs, or gallops, no carotid bruit, no cardiac pulsations present. Abdomen: Soft nontender, negative for organomegaly, or masses. Bowel sounds are present in all 4 quadrants without guarding or rebound, no CVA tenderness. Ferguson in place Musculoskeletal: Muscle strength and tone are equal, no deformity, crepitus, effusions, cyanosis, clubbing present. Positive right lower extremity trace nonpitting edema, greater than left. Full range of motion intact radial and pedal pulses are normal. Skin: Warm dry and intact without rashes, multiple wounds to posterior scrotum. Neuro: Alert and orientated x3, moves all extremities, sensation to touch intact, no gross deficits noted of cranial nerves. Psych: Patient has a well-kept appearance, appropriate affect, mental status attitude thought context and judgment are appropriate for age. Objective Labs 12/27/22 04:20 12/27/22 04:20 Labs: Laboratory Results - last 24 hr 12/27/22 12/27/22 04:20 04:20 WBC 17.8 H RBC 4.72 Hgb 12.1 L Hct 37.9 L MCV 80.3 MCH 25.6 L MCHC 31.9 RDW 17.4 H Plt Count 330 Neut % (Auto) 83.2 H Lymph % (Auto) 13.0 L [place] % (Auto) 3.1 Eos % (Auto) 0.0 L Baso % (Auto) 0.7 Neut # (Auto) 03458 H Lymph # (Auto) 2300 [place] # (Auto) 600 Eos # (Auto) 0 Baso # (Auto) 100 Sodium 138 Potassium 4.8 Chloride 101 Carbon Dioxide 32 BUN 30 H Creatinine 0.64 L Estimated GFR > 60 BUN/Creatinine Ratio 46.9 H Glucose 163 H Calcium 8.6 PFSH Medical History Chronic anticoagulation Chronic indwelling Ferguson catheter Congestive heart failure Coronary artery disease History of [place] (myocardial infarction) Hyperlipidemia Hypertension Intermittent self-catheterization of bladder Pacemaker Paraplegic spinal paralysis Spinal cord injury, incomplete Surgical History History of coronary artery stent placement History of laminectomy History of right knee joint replacement Family History Father Congestive heart failure Mother Cancer Social History household members: spouse Smoking Status: Never smoker alcohol intake: never Assessment & Plan Assessment & Plan narrative: Joey Grover is an 82-year-old male with a hx of CHF, [place] stent x2, pacer on chronic Eliquis, HTN, HLD, CAD, history of right leg DVT, incomplete SCI paraplegic (reported secondary to laminectomy in 2002 that resulted in spinal Staph infection), intermittent catheterization during day &? Ferguson nightly, who is admitted for acute hypoxic respiratory failure secondary to pneumonia. Gentle hydration, monitoring for fluid overload, Levaquin IV antibiotics pending blood, sputum, and urine cultures pending, goal to discharge titrating patient down off O2 to an O2 saturation of 88% on room air. Acute hypoxic, hypercapnic respiratory failure secondary to pneumonia, acute, present on admission * sat's: 80s% on rm air EMS/ED. Patient is not on any chronic O2. initial: 6L/NC, has been tapered down to 3 L/NC O2 saturation of 98%. Suspect COPD exacerbation from viral illness with underlying DANIEL/OHS contributing. * CTA: Negative for PE, Mild pruning of distal pulmonary arteries.? Cannot rule out chronic pulmonary embolism.? Mild enlargement of central pulmonary artery, Moderate cardiomegaly.? There is coronary artery disease, and Mild mediastinal and bilateral hilar lymphadenopathy. * Lactate neg, albumin 3.3, CRP 5.6, BNP 688, procal neg, MRSA neg, respiratory panel negative. 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 * Patient has multiple posterior scrotal wounds: Will order dressing changes q.day, wound culture * 08/02/2022 decubitus buttocks wound culture : Proteus mirabilis strep group B * Urine culture pending * On last admit recommend that patient stop useage of indwelling ferguson, consider urology o/p consult for urinary cath port access like suprapubic catheter. * wound care consult ordered Possible undiagnosed DANIEL, present on admission * Bicarb elevated on BMP at 31, patient is morbidly obese * no h/o DANIEL but I suspect he has this as well as OHS * CPAP ordered at night Incomplete SCI, paraplegic, neurological function deterioration, frequent falls, chronic, present on admission * recommend rehab * PT OT evaluation * recommend patient consult Neurology/and or est care SCI specialist at for on-going management * Fall precautions Congestive heart failure, chronic, with a history of [place], stent x2, pacemaker on chronic anticoagulation, present on admission * low-sodium diet, daily weights * Continue Lasix, Eliquis * echo pending as above Right leg edema, with erythema, chronic, present on admission * history of DVT in right lower leg, progressive leg weakness, edema greater to rt/lt. 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 The patient's obesity increases the difficulty and complexity of medical and/or surgical interventions, management and increases the chances of poor outcome such as morbidity and mortality as well as impaired wound healing.? Code status:Full DVT/VTE prophylaxis:Devon Zaidi only Disposition: SNF in 1-2 days.
[2022-12-28] VITALS (11 sets, daily range): BP systolic 109–148; BP diastolic 44–75; PULSE 61–79; RESP 16–20; TEMP 35.6–36.4; O2SAT 91–99
[2022-12-28] MEDS: methylPREDNISolone 125 MG/2 ML VIAL 60 MG IV ×2 (03:34→16:58)
[2022-12-28 05:22] LABS: Add Manual Diff / Slide Review NO; Basophils Absolute Auto 0 /uL (0-100); Eosinophils Absolute Auto 0 /uL (0-450); Hematocrit 39.6 % (41-53); Hemoglobin 12.8 g/dL (13.5-17.5); Lymphocytes Absolute Auto 1800 /uL (1100-4500); Lymphocytes Percent Auto 12.8 % (25-40); Mean Corpuscular HGB Conc 32.3 % (30-36); Mean Corpuscular Hemoglobin 25.7 PG (26-34); Mean Corpuscular Volume 79.4 fL (80-100); Monocytes Absolute Auto 600 /uL (0-900); Neutrophils Absolute Auto 11700 /uL (1500-7000); Neutrophils Percent Auto 83.2 % (50-75); Platelet Count 300 X10^3/uL (150-400); Red Blood Cell Count 4.99 X10^6/uL (4.5-5.9); Red Cell Distribution Width 17.5 % (11.6-14.8)
[2022-12-28 05:43] LABS: BUN Creatinine Ratio 44.3 (6-22); Blood Urea Nitrogen 31 mg/dL (9-20); Calcium 8.4 mg/dL (8.4-10.2); Carbon Dioxide 32 mmol/L (22-32); Chloride 101 mmol/L (98-107); Estimated Glomerular Filt Rate > 60 mL/min (>60); Glucose 143 mg/dL (80-110); HEMOLYSIS < 15 (0-50); Potassium 4.7 mmol/L (3.4-5.1); Sodium 137 mmol/L (137-145)
[2022-12-28] MEDS: levoFLOXacin 750 MG/150 ML PIGGYBACK 100 MG IV (09:43)
[2022-12-28] MEDS: DOCUSATE 100 MG CAPSULE PO (09:43)
[2022-12-28] MEDS: ATORVASTATIN 20 MG TABLET 40 MG PO (09:43)
[2022-12-28] MEDS: guaiFENesin ER 600 MG TAB PO ×2 (09:43→21:32)
[2022-12-28] MEDS: APIXABAN 5 MG TABLET 2.5 MG PO (09:43)
[2022-12-28] MEDS: GABAPENTIN 600 MG TABLET PO ×3 (09:43→21:33)
[2022-12-28] MEDS: ALBUTEROL/IPRATROPIUM 3 ML AMPUL INH ×3 (10:10→19:27)
--- NOTE | 2022-12-28 10:22 | CM.DPC ---
Addendum entered by Lu Pozo R.N. 12/28/22 11:15: Met with patient, introduced self and role, and gave him update regarding his auth, and being out of Medicare days. Asked him as back up if he is willing to go home, stated, you can discuss with my , Ada at [facility] is currently seeing me for would care. Will follow up again with Imani before this DC Software Quality Analyst leaves today. Original Note: DCP Cont: Confirmed with Imani at [facility] that patient has used all of his Medicare Days, would have had to be out of the hospital for 60 days to restart Medicare. She has submitted auth. Can't go under his Medicaid, since his care needs are too high. Imani is hopeful to have an answer by today, but will follow up again late this pm before leaving, since patient is medically stable for skilled. P: DCP working on getting patient over to [facility], Imani is working on getting auth. Will follow up again later today. Lu Pozo RN/Rn Intern
--- NOTE | 2022-12-28 10:25 | PT.IPTN ---
Current Diagnoses Acute respiratory failure with hypoxia (12/24/22) Physical Therapy Treatment Note M2 PT-IP Current Condition Start: 12/25/22 16:53 Freq: NEEDED Status: Active Protocol: Document 12/25/22 15:20 AB (Rec: 12/25/22 17:20 AB [id number]) Physical Therapy Current Condition Current Condition Evaluation Date 12/25/22 Treatment Diagnosis PNA; respiratory failure; generalized weakness Onset Date 12/24/22 M3 PT-IP Subjective Start: 12/25/22 16:53 Freq: NEEDED Status: Active Protocol: Document 12/28/22 10:50 TS (Rec: 12/28/22 11:04 TS [id number]) Subjective Physical Therapy Visit Type Type Treatment Note Visit Start Time 10:25 Visit Stop Time 10:46 Total Visit Minutes 21 Number of ENVIRONMENTAL ISSUES INSTRUCTOR Visits 2 Physical Therapy Visit Comments Patient Comments Pt found resting in bed, agreeable to transfer to chair . M4 PT-IP Mobility and Gait Start: 12/25/22 16:53 Freq: NEEDED Status: Active Protocol: Document 12/28/22 10:50 TS (Rec: 12/28/22 11:04 TS [id number]) PT-Bed Mobility Assessment Supine to Sit Supine to Sit Minimal Assistance,1 Person Assistance,Head of Bed Elevated,Bedrails Scooting Scooting to Edge of Bed Minimal Assistance PT-Transfer Assessment Sit to and From Stand Sit to and from Stand Minimal Assistance,1 Person Assistance,Use of Upper Extremities Equipment Transfer Assistive Device Gait Belt,Front Wheeled Walker Orthotic/Prosthetic Devices or Brace: No Transfers Transfer Destination Chair Transfer Technique Stand Pivot Transfer Ability Level of Assist Maximum Assistance,1 Person Assistance Comments Mobility Comments Pt found resting in bed on 3L of o2 Spo2 90%. Supine to sit with HOB elevated Ravindra for uprighting trunk, pt required RUE handrail assist and LUE pushing from bed. PT scooted to EOB Ravindra for slight retrolean. Sit to stand x1 Ravindra with BUE support on FWW, pt uses momentum to stand with bracing of LEs against bed. Stand step pivot transfer to chair MaxA x1, LLE buckling when stepping with foot, no LOB. Pt was left in chair with call light nearby, RN notified. Gait Assessment Comments Gait Comments Stand step pivot transfer to chair. See mobility comments. PT-Balance Assessment Sitting Balance and Reactions Static Sitting Balance Ability Good Dynamic Sitting Balance Ability Fair Standing Balance and Reactions Static Standing Balance Ability Poor Dynamic Standing Balance Ability Poor Device Used FWW M5 PT-IP Objective Assessments Start: 12/25/22 16:53 Freq: NEEDED Status: Active Protocol: Document 12/25/22 15:20 AB (Rec: 12/25/22 17:20 AB [id number]) Orientation Orientation/Cognition Level of Alertness Alert Orientation Name,Place,Situation Language Function Ability Hard of Hearing Safety Awareness Decreased Safety Awareness Memory Description Short Term Impaired Gross Range of Motion Lower Extremity ROM Assessment Right Impaired Impairments R knee limited extension ~ 20 deg less to 0 Strength Lower Extremity Strength Assessment Right Impaired Hip 3+/5 Knee 3/5 Muscle Tone Muscle Tone WNL Yes M6 PT-IP Treatment Start: 12/25/22 16:53 Freq: NEEDED Status: Active Protocol: Document 12/28/22 10:50 TS (Rec: 12/28/22 11:04 TS [id number]) Physical Therapy Treatment Exercises Exercises Ankle Pumps,Quad Sets,Heel Slides Other Treatments Other Treatment Performed Educated pt on the importance of bed exercises for strengthening of LEs while in chair/bed. M7 PT-IP Assessment and Plan Start: 12/25/22 16:53 Freq: NEEDED Status: Active Protocol: Document 12/28/22 10:50 TS (Rec: 12/28/22 11:04 TS [id number]) PT Summary Assessment and Plan Potential Rehabilitation Potential Fair Summary Impairments Pain,ROM,Strength,Balance, Coordination,Sensation,Tone, Cognition,Bed Mobility, Transfers,Gait,Activity Tolerance Progress Towards Goals Progressing Toward Goals Assessment Summary Pt making some progress today with his mobility. He continues to require Ravindra for bed mobility with HOB elevated and increased effort to scoot to EOB for feet flat on floor . He progressed his sit to stands to Ravindra and continues to require MaxA for stand step pivot transfer to chair. He remained in low 90s for his Spo2 throughout session with some SOB. Pt is very motivated to improve and get his legs stronger. PT is recommending SNF to progress bed mobility, transfers and gait. Goals Bed Mobility Goal Standby Assistance Transfer Goal Minimal Assistance,Front Wheeled Walker Frequency of Treatment Frequency Of Treatment Once a Day Treatment Plan Physical Therapy Treatment Plan Bed Mobility Training,Transfer Training,Therapeutic Exercise ,Balance Retraining,Post Op Education,Discharge Planning, Hot or Cold Pack,Neuromuscular Re-ed,Coordination Retraining ,Manual Therapy Other Recommendations and Next Treatment Progress standing tolerance, Focus LE strength, surface to surface transfers with LRAD, pivot transfers. Precautions Other Precautions Monitor SPO2 Recommendations To Nursing Amount of Assist Needed 2 Person Assist,Mechanical Lift Discharge Recommendations PT Discharge Recommendations SNF Rehab Transportation Needs at Discharge Wheelchair/Cabulance,Stretcher /Ambulance
--- NOTE | 2022-12-28 10:31 | PC.NURSE ---
Ana called and reminded to come over and see patients wounds before he discharges to a SNF. put in a consult for them and he did call and leave a message. Patient is alert and oriented x3. He is a carlos lift with staff and physical therapy is working with patient now. Patient has some paralysis to his lower extremities but is able to stand with a walker. He has multiple wounds to his bottom, and scrotum. Wounds are being cleansed with normal saline, meta honey, alginate and then allevyn dressings are applied. He has his iv levaquin infusing. States that his iv site itched. Everything looks wnl, patient was rubbing area. Explained to him that we would like to monitor area so please try and leave area alone. He has been compliant. Voices no needs at this time.
--- NOTE | 2022-12-28 14:08 | OT.IP.TRT ---
Current Diagnoses Acute respiratory failure with hypoxia (12/24/22) Occupational Therapy Treatment Note M2 OT-IP Current Condition Start: 12/27/22 15:54 Freq: Status: Active Protocol: Document 12/27/22 15:54 CGR (Rec: 12/27/22 16:17 CGR [id number]) Occupational Therapy Current Condition Current Condition Evaluation Date 12/27/22 Treatment Diagnosis PNA, respiratory failure Diagnosis Onset Date 12/24/22 M3 OT- IP Subjective and Pain Start: 12/27/22 15:54 Freq: Status: Active Protocol: Document 12/28/22 14:19 CGR (Rec: 12/28/22 14:27 CGR [id number]) OT- Subjective Occupational Therapy Visit Type Type Progress Note Visit Start Time 13:58 Visit Stop Time 14:08 Total Visit Minutes 10 Notes Pt declined ADLs but agreeable to UE therex OT Pain Assessment Pain When Pain Assessed At Rest Pain Present Pain Present Denied Pain M4 OT- IP ADL's Start: 12/27/22 15:54 Freq: Status: Active Protocol: Document 12/27/22 15:54 CGR (Rec: 12/27/22 16:17 CGR [id number]) OT [id number] Comments OT Self-Feeding Comments not meal time OT ADL-Grooming Comments OT Grooming Comments pt declined to perform OT ADL-Oral Care Comments Oral Care Comments pt declined to perform OT ADL-Dressing Comments OT Dressing Comments pt declined to perform OT ADL-Toileting General Evaluation Toileting Ability Total Assistance Comments OT Toileting Comments ferguson OT ADL-Bathing Comments OT Bathing Comments not performed M5 OT- IP IADL's Start: 12/27/22 15:54 Freq: Status: Active Protocol: Document 12/27/22 15:54 CGR (Rec: 12/27/22 16:17 CGR [id number]) OT-Instrumental Activities of Daily Living Deficits IADL Deficits Identified No Deficits Home Safety Awareness Awareness of Need for Assistance at Home Good Awareness Ability to Problem Solve Emergency Able to Problem Solve Situations Medication Management Medication Management Caregiver Administers Money Management Money Management Caregiver Provides Assistance Meal Preparation Meal Preparation Caregiver Provides Assist Automotive Drivability Technician Automotive Drivability Technician Caregiver Provides Assist Driving Driving Comments Pt states that his vision now requires his spouse to drive. M6 OT- IP Functional Cognition Start: 12/27/22 15:54 Freq: Status: Active Protocol: Document 12/27/22 15:54 CGR (Rec: 12/27/22 16:17 CGR [id number]) Cognitive Factors Limiting Selfcare Function Cognitive Ability Level of Alertness Alert Patient Orientation Name,Age,Birthday,Month,Date, Year,Day of Week,Place, Situation Attention Span Ability Capable of Focused Attention, Capable of Sustained Attention Ability to Follow Commands Able to Follow Multi-Step Commands OT- Vision and Hearing OT- Vision Assessment Vision History Macular Degeneration Visual Acuity WFL Visual Attentiveness WFL Occular Pursuits WFL Visual Convergence WFL M7 OT- IP Mobility and Balance Start: 12/27/22 15:54 Freq: Status: Active Protocol: Document 12/28/22 14:19 CGR (Rec: 12/28/22 14:27 CGR [id number]) OT-Transfer Assessment Sit to and From Stand Sit to and from Stand Standby Assistance Comments Mobility Comments sit to squat from chair using B chair rails for tricep extensions. Pt was able to do 10 reps getting into a squat position. OT- Balance Assessment Sitting Balance and Reactions Static Sitting Balance Ability Good Dynamic Sitting Balance Ability Fair Standing Balance and Reactions Static Standing Balance Ability Poor Dynamic Standing Balance Ability Poor M8 OT- IP Objective Assessments Start: 12/27/22 15:54 Freq: Status: Active Protocol: Document 12/27/22 15:54 CGR (Rec: 12/27/22 16:17 CGR [id number]) OT Gross Range of Motion Upper Extremity Range of Motion Assessment Within Functional Limits OT Strength Comments Strength Comments B shlds 4-/5 B bicep 5-/5 B tricep 5-/5 B hands 4-/5 OT- Coordination Assessment Upper Extremity Finger to Nose Test Within Functional Limits Finger Tapping Test Within Functional Limits OT-Muscle Tone Assessment Muscle Tone WNL Yes OT Sensation Assessment Edema Edema Absent M9 OT- IP Assessment and Plan Start: 12/27/22 15:54 Freq: Status: Active Protocol: Document 12/28/22 14:19 CGR (Rec: 12/28/22 14:27 CGR [id number]) OT Summary Assessment and Plan Potential Rehabilitation Potential Good Analytic Complexity at Evaluation Moderate Summary OT Impairments Strength,Balance,Functional Mobility,Grooming,Dressing, Toileting,Bathing,Toilet Transfers,Shower Transfers, Activity Tolerance Progress Towards Goals Progressing Toward Goals Assessment Summary Pt presents as a moderate complexity evaluation s/p admit for PNA. In the last 6 months pt has had a significant decline in his abilities requiring more assist. Pt would benefit from SNF for increased mobility and strength to improve his ADLs. Recommend d/c to SNF. Today pt participated in UE therex. Pt performed tricep dips sitting in chair achieving squat with use of arms x10, isometric lat contractions using towel from high to low x10 reps, isometric bicep contractions using towel held under foot for a 5 second hold x10 reps, and reclined sitting into upright sitting using towel to pull x10 reps. Pt with SOB that recovers quickly between exercises. Goals Grooming Goal Independent Dressing Goal Independent Toileting Goal Independent Bathing Goal Independent Toilet Transfer Goal Independent Shower Transfer Goal Independent Days to Meet Goals 30 Frequency of Treatment Frequency Of Treatment Once a Day Treatment Plan OT Treatment Plan ADL Training,Functional Mobility,Patient/Family Education,Discharge Planning Other Treatment Recommendations and Next ADLs seated, UE strengthening. Treatment Focus Discharge Recommendations OT Discharge Recommendations SNF Rehab Transportation Needs at Discharge Wheelchair/Cabulance
--- NOTE | 2022-12-28 16:27 | P.CONS_ITS ---
History of Present Illness Consult details Date Patient Seen: 12/28/22 Time Patient Seen: 16:00 Chief complaint: Acute respiratory failure, pneumonia Narrative: The patient is an 82-year-old male with CHF, coronary artery disease, obesity, and partial paraplegia who was admitted to the hospital December 24, 2022 for evaluation and treatment of acute respiratory failure with hypoxia. Patient was found to have a sacral pressure ulcer as well as ulcerations on his inner thighs and scrotum. Wound care consult was then requested. The patient reports that he developed a pressure ulcer 5 months ago following a hospital stay at [facility]. Since then the patient has been in a assisted on 2 separate occasions and since discharge has been seen receiving care by his who is retired PRODUCT DEVELOPMENT COORDINATOR and by home health care nursing. Most recently he has been receiving dressing changes with Medi Honey and alginate. He does have a cushion for his wheelchair for pressure offloading. He reports that the ulcers have been slowly improving. He denies having any pain or discomfort nor has he had any drainage but he does occasionally have some bleeding. The ulcers on his inner thighs and scrotum were reportedly caused by wearing tight briefs that were causing pressure. He is on chronic anticoagulation. Meds Home Medications and Allergies Home Medications Medication Instructions Recorded Confirmed Type carvedilol 25 mg tablet (Coreg) 25 mg PO BID ##0 02/29/12 12/24/22 History albuterol sulfate 90 mcg/actuation 1 puff inhalation Q4HR PRN sob 08/03/22 12/24/22 History aerosol inhaler (ProAir HFA) apixaban 2.5 mg tablet (Eliquis) 2.5 mg PO BID 08/03/22 12/24/22 History atorvastatin 40 mg tablet 40 mg PO DAILY 08/03/22 12/24/22 History gabapentin 600 mg tablet 600 mg PO TID 08/03/22 12/24/22 History lidocaine 5 % topical patch 1 patch transdermal Q12H PRN Pain, 08/03/22 12/24/22 History Mild acetaminophen 500 mg tablet 500 mg PO Q6H PRN Pain (Scale 12/24/22 12/24/22 History Score 1-3) calcium carbonate 600 mg-vitamin 1 tab PO DAILY 12/24/22 12/24/22 History D3 5 mcg (200 unit) tablet furosemide 40 mg tablet 40 mg PO DAILY 12/24/22 12/24/22 History multivitamin 1 tab PO DAILY 12/24/22 12/24/22 History vitamin A-vitamin C-vit E-min 1 tab PO DAILY 12/24/22 12/24/22 History tablet Allergies Allergy/AdvReac Type Severity Reaction Status Date / Time No Known Drug Allergies Allergy Verified 08/02/22 17:38 Review of Systems Respiratory Comments: Shortness of breath Integumentary/Breasts Comments: Bleeding from ulcers Exam Vital Signs (past 8 hours): - 12/28/22 10:10 12/28/22 15:00 12/28/22 11:27 Temperature 96.0 F L Pulse Rate 76 79 Respiratory Rate 16 16 Blood Pressure 118/52 L Pulse Oximetry 92 93 91 Oxygen Delivery Method Nasal Cannula Room Air Oxygen Flow Rate 3 3 12/28/22 15:40 12/28/22 15:53 Temperature 97.1 F L Pulse Rate 75 71 Respiratory Rate 16 19 Blood Pressure 115/44 L Pulse Oximetry 93 93 Oxygen Delivery Method Nasal Cannula Oxygen Flow Rate 3 7 Oxygen Delivery Method Nasal Cannula Oxygen Flow Rate 7 Narrative Exam Narrative: Generally the patient is an obese male who is awake alert and oriented in his in no apparent distress Skin Other: Grade 3 sacral pressure ulcer was granulation tissue, small amount of slough and biofilm, no evidence for infection Grade 2 pressure injury medial right thigh and scrotum with slough and biofilm, no evidence for active infection Objective Labs 12/28/22 04:55 12/28/22 04:55 Labs: Laboratory Results - last 24 hr 12/28/22 12/28/22 04:55 04:55 WBC 14.0 H RBC 4.99 Hgb 12.8 L Hct 39.6 L MCV 79.4 L MCH 25.7 L MCHC 32.3 RDW 17.5 H Plt Count 300 Neut % (Auto) 83.2 H Lymph % (Auto) 12.8 L [place] % (Auto) 4.0 Eos % (Auto) 0.0 L Baso % (Auto) 0.0 Neut # (Auto) 36790 H Lymph # (Auto) 1800 [place] # (Auto) 600 Eos # (Auto) 0 Baso # (Auto) 0 Sodium 137 Potassium 4.7 Chloride 101 Carbon Dioxide 32 BUN 31 H Creatinine 0.70 Estimated GFR > 60 BUN/Creatinine Ratio 44.3 H Glucose 143 H Calcium 8.4 PFSH Medical History Chronic anticoagulation Chronic indwelling Mckee catheter Congestive heart failure Coronary artery disease History of [place] (myocardial infarction) Hyperlipidemia Hypertension Intermittent self-catheterization of bladder Pacemaker Paraplegic spinal paralysis Spinal cord injury, incomplete Surgical History History of coronary artery stent placement History of laminectomy History of right knee joint replacement Family History Father Congestive heart failure Mother Cancer Social History household members: spouse Tobacco & Substance Use Smoking Status: Never smoker alcohol intake: never Assessment & Plan Assessment and plan (1) Pressure ulcer of sacral region, stage 3: Status: Acute (2) Pressure ulcer of thigh, stage 2: Status: Acute Plan Continue dressing changes with Medi Honey and alginate, recommend frequent turning, use of E hob cushion for pressure offloading, nutritional support, follow up at wound center after discharge. Time Spent With Patient Time with patient: 30 to 49 minutes with 50% spent counseling/coordinating care
--- NOTE | 2022-12-28 17:47 | P.PN_ITS ---
Subjective Subjective Interval history: Patient feeling well. Now on 2L NC. Awaiting SNF auth. Wound care to see today. Exam Vital Signs (past 8 hours): - 12/28/22 10:10 12/28/22 15:00 12/28/22 11:27 Temperature 96.0 F L Pulse Rate 76 79 Respiratory Rate 16 16 Blood Pressure 118/52 L Pulse Oximetry 92 93 91 Oxygen Delivery Method Nasal Cannula Room Air Oxygen Flow Rate 3 3 12/28/22 15:40 12/28/22 15:53 Temperature 97.1 F L Pulse Rate 75 71 Respiratory Rate 16 19 Blood Pressure 115/44 L Pulse Oximetry 93 93 Oxygen Delivery Method Nasal Cannula Oxygen Flow Rate 3 7 Oxygen Delivery Method Nasal Cannula Oxygen Flow Rate 7 Narrative Exam Narrative: General: Patient is a well-developed, well-nourished in no acute distress at this time. Obese. HEENT: Normocephalic, atraumatic, extraocular muscles intact, oral pharynx is clear and mucous membranes are moist. Neck is supple and symmetric, trachea is midline, no adenopathy, no thyroid enlargement, nontender, no masses palpated. Negative for JVD Chest: Pacemaker upper right, Equal chest rise without nasal flaring, retractions. mild shallow, tachypneic, labored breathing. Lungs: Auscultation of all lung [place] are decreased, poor air exchange, diffuse expiratory wheezing throughout, decreased in bilateral bases. Cardio: regular rate and rhythm without murmur, rubs, or gallops, no carotid bruit, no cardiac pulsations present. Abdomen: Soft nontender, negative for organomegaly, or masses. Bowel sounds are present in all 4 quadrants without guarding or rebound, no CVA tenderness. Ferguson in place Musculoskeletal: Muscle strength and tone are equal, no deformity, crepitus, effusions, cyanosis, clubbing present. Positive right lower extremity trace nonpitting edema, greater than left. Full range of motion intact radial and pedal pulses are normal. Skin: Warm dry and intact without rashes, stage 2-3 pressure wounds to posterior scrotum and sacrum Neuro: Alert and orientated x3, moves all extremities, sensation to touch intact, no gross deficits noted of cranial nerves. Psych: Patient has a well-kept appearance, appropriate affect, mental status attitude thought context and judgment are appropriate for age. Objective Labs 12/28/22 04:55 12/28/22 04:55 Labs: Laboratory Results - last 24 hr 12/28/22 12/28/22 04:55 04:55 WBC 14.0 H RBC 4.99 Hgb 12.8 L Hct 39.6 L MCV 79.4 L MCH 25.7 L MCHC 32.3 RDW 17.5 H Plt Count 300 Neut % (Auto) 83.2 H Lymph % (Auto) 12.8 L [place] % (Auto) 4.0 Eos % (Auto) 0.0 L Baso % (Auto) 0.0 Neut # (Auto) 63708 H Lymph # (Auto) 1800 [place] # (Auto) 600 Eos # (Auto) 0 Baso # (Auto) 0 Sodium 137 Potassium 4.7 Chloride 101 Carbon Dioxide 32 BUN 31 H Creatinine 0.70 Estimated GFR > 60 BUN/Creatinine Ratio 44.3 H Glucose 143 H Calcium 8.4 PFSH Medical History Chronic anticoagulation Chronic indwelling Ferguson catheter Congestive heart failure Coronary artery disease History of [place] (myocardial infarction) Hyperlipidemia Hypertension Intermittent self-catheterization of bladder Pacemaker Paraplegic spinal paralysis Spinal cord injury, incomplete Surgical History History of coronary artery stent placement History of laminectomy History of right knee joint replacement Family History Father Congestive heart failure Mother Cancer Social History household members: spouse Smoking Status: Never smoker alcohol intake: never Assessment & Plan Assessment & Plan narrative: Acute hypoxic, hypercapnic respiratory failure secondary to pneumonia, acute, present on admission * sat's: 80s% on rm air EMS/ED. Patient is not on any chronic O2. initial: 6L/ NC, has been tapered down to 3 L/NC O2 saturation of 98%. Suspect COPD exacerbation from viral illness with underlying DANIEL/OHS contributing. * CTA: Negative for PE, Mild pruning of distal pulmonary arteries.? Cannot rule out chronic pulmonary embolism.? Mild enlargement of central pulmonary artery, Moderate cardiomegaly.? There is coronary artery disease, and Mild mediastinal and bilateral hilar lymphadenopathy. * Lactate neg, albumin 3.3, CRP 5.6, BNP 688, procal neg, MRSA neg, respiratory panel negative. 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 * Patient has multiple posterior scrotal wounds: Will order dressing changes q.day, wound culture * 08/02/2022 decubitus buttocks wound culture : Proteus mirabilis strep group B * Urine culture pending * On last admit recommend that patient stop useage of indwelling ferguson, consider urology o/p consult for urinary cath port access like suprapubic catheter. * wound care consult ordered-rec continuing current dressings, frequent turning and E hob cushion for pressure offloading, f/u in wound clinic Possible undiagnosed DANIEL, present on admission * Bicarb elevated on BMP at 31, patient is morbidly obese * no h/o DANIEL but I suspect he has this as well as OHS * CPAP ordered at night-patient refused after using for 1 night Incomplete SCI, paraplegic, neurological function deterioration, frequent falls, chronic, present on admission * recommend rehab * PT OT evaluation * recommend patient consult Neurology/and or est care SCI specialist at for on-going management * Fall precautions Congestive heart failure, chronic, with a history of TN, stent x2, pacemaker on chronic anticoagulation, present on admission * low-sodium diet, daily weights * Continue Lasix, Eliquis * echo pending as above Right leg edema, with erythema, chronic, present on admission * history of DVT in right lower leg, progressive leg weakness, edema greater to rt/lt. 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 The patient's obesity increases the difficulty and complexity of medical and/or surgical interventions, management and increases the chances of poor outcome such as morbidity and mortality as well as impaired wound healing.? Code status:Full DVT/VTE prophylaxis: Devon Zaidi only Disposition: SNF in 1-2 days pending insurance auth.
[2022-12-28] MEDS: APIXABAN 5 MG TABLET PO (21:32)
[2022-12-28] MEDS: BENZONATATE 100 MG CAPSULE PO (21:32)
[2022-12-28] MEDS: ACETAMINOPHEN 325 MG TABLET 650 MG PO (21:33)
[2022-12-29] VITALS (12 sets, daily range): BP systolic 109–170; BP diastolic 55–78; PULSE 64–84; RESP 18–21; TEMP 36.2–36.9; O2SAT 90–96
[2022-12-29] MEDS: methylPREDNISolone 125 MG/2 ML VIAL 60 MG IV (06:35)
[2022-12-29] MEDS: SODIUM CHLORIDE 0.9% FLUSH 10 ML IV ×3 (06:37→20:09)
[2022-12-29] MEDS: ALBUTEROL/IPRATROPIUM 3 ML AMPUL INH ×3 (07:44→19:24)
--- NOTE | 2022-12-29 09:25 | CM.DPC ---
Addendum entered by Lu Pozo R.N. 12/29/22 13:36: Spoke to Daniel at [place], stated that patient is 40%, connected, which would not qualify for care home care needs. Addendum entered by Lu Pozo R.N. 12/29/22 13:11: Imani at [facility] called back, and confirmed that she has spoke to spouse, all is set up, patient will have a room mate, will need to update room mate, can set up transportation for tomorrow with olive picker at 11:00. Left a note with hospitalist regarding discharging tomorrow. Addendum entered by Lu Pozo R.N. 12/29/22 12:02: Spoke to Imani at [facility], stated, unable to secure IP Ghoster. Asked her about having patient come over care home Medicaid. She indicated that she spoke to her database security administrator, and he can come over ferry terminal agent, but will not be getting the therapies that he did have, will need to let him know this. He will get the wound care, he will be at the facility permanently. Let her know that this DC Coal Bagger will discuss with patient, left a message with spouse, Marguerite, and Imani will also try to reach out to her. Spoke to patient, brought in nurse, Brionna. He is updated, that going to [facility] would be care home, would not get new P.T. Spoke to spouse, Marguerite, she is aware, confirms that she can no longer care for patient, is on board with ferry terminal agent plan at [facility]. Amparo at [facility] called back, stated, they have been in the home, and can no longer achieve any new goals for wound care needs. They have already updated spouse, Marguerite, that they can't manage as well. Amparo voiced concerns about their staff not feeling comfortable with spouse assisting in the home, has not been able to meet his needs. Updated Imani at [facility], she will follow up with spouse, patient could go today, depending on transportation and discussion that Imani has with spouse. Have already completed PASSR. Addendum entered by Lu Pozo R.N. 12/29/22 11:05: Will also contact Tom at [facility] for [facility] to see if they may be able to accept patient. Addendum entered by Lu Pozo R.N. 12/29/22 11:00: Received a message from Ashley at [facility], indicated that her network operations manager indicated that they can't take patient back on services. Called Amparo, and left her a message at [facility], for more information. Message reflected that patient is too high acuity for their needs. This DC Coal Bagger called over at [facility], and found out that patient is under ALEKSEY, had a assessment on 12/22. Tiffany Kayden is patient's ALEKSEY case aide, but caregiver has not yet been assigned. Tiffany's phone number is: [phone]. Left her a message and asked her go call back. Called [place], first number is [phone], left a message with Daniel to inquire if patient is service connected, and how much. Called over at [facility] in [facility]. Spoke to Roderick, his number is: [phone], he was at lunch, but will call this DC Coal Bagger back. Left a message with Imani at [facility] inquiring upon status of referral, versus ferry terminal agent placement. Will follow up with her again today, as well as [place], and [facility] case aide. Plan B may be that patient will need to go home with another home health agency if needed. Original Note: DCP Cont: Called spouse, Leanne, to touch base with her on plan. Confirmed that patient had been at [facility] in October, therfore, did still use up his Medicare benefit. Spouse indicated, I've been taking care of him, can't do it anymore, he lays in bed, is incontinent, and now has sores. Asked her if she has [facility], indicated that she has, only have care home solutions, no care home beds. Asked her if she feels that patient needs care home placement, stated, he does. Asked her if she has discussed this with patient and she indicated that she has discussed this with him. Let her know that this DC Coal Bagger will follow up again with Imani at [facility] to find out about auth. Otherwise, may need to consider possibly placing him ferry terminal agent under his Medicaid. P: DCP working on getting patient over to [facility] in [place] under his [facility]. Will follow up with Imani today. Lu Pozo RN/Hospital Wellness Coordinator
[2022-12-29] MEDS: DOCUSATE 100 MG CAPSULE PO ×2 (09:54→20:07)
[2022-12-29] MEDS: predniSONE 20 MG TABLET 40 MG PO (09:54)
[2022-12-29] MEDS: guaiFENesin ER 600 MG TAB PO ×2 (09:54→20:08)
[2022-12-29] MEDS: ATORVASTATIN 20 MG TABLET 40 MG PO (09:55)
[2022-12-29] MEDS: APIXABAN 5 MG TABLET PO ×2 (09:55→20:08)
[2022-12-29] MEDS: levoFLOXacin 750 MG/150 ML PIGGYBACK 100 MG IV (09:55)
[2022-12-29] MEDS: GABAPENTIN 600 MG TABLET PO ×3 (09:55→20:08)
--- NOTE | 2022-12-29 12:09 | OT.IP.TRT ---
Current Diagnoses Acute respiratory failure with hypoxia (12/24/22) Pressure ulcer of sacral region, stage 3 (12/24/22) Pressure ulcer of unspecified hip, stage 2 (12/24/22) Occupational Therapy Treatment Note M2 OT-IP Current Condition Start: 12/27/22 15:54 Freq: Status: Active Protocol: Document 12/27/22 15:54 CGR (Rec: 12/27/22 16:17 CGR [id number]) Occupational Therapy Current Condition Current Condition Evaluation Date 12/27/22 Treatment Diagnosis PNA, respiratory failure Diagnosis Onset Date 12/24/22 M3 OT- IP Subjective and Pain Start: 12/27/22 15:54 Freq: Status: Active Protocol: Document 12/29/22 11:59 AMS (Rec: 12/29/22 12:09 AMS [id number]) OT- Subjective Occupational Therapy Visit Type Type Treatment Note Visit Start Time 09:55 Visit Stop Time 10:27 Total Visit Minutes 32 Occupational Therapy Visit Comments Patient Comments Joey denied any pain/ discomfort. Agreeable to transfer to chair w/ therapist . M4 OT- IP ADL's Start: 12/27/22 15:54 Freq: Status: Active Protocol: Document 12/27/22 15:54 CGR (Rec: 12/27/22 16:17 CGR [id number]) OT [id number] Comments OT Self-Feeding Comments not meal time OT ADL-Grooming Comments OT Grooming Comments pt declined to perform OT ADL-Oral Care Comments Oral Care Comments pt declined to perform OT ADL-Dressing Comments OT Dressing Comments pt declined to perform OT ADL-Toileting General Evaluation Toileting Ability Total Assistance Comments OT Toileting Comments ferguson OT ADL-Bathing Comments OT Bathing Comments not performed M5 OT- IP IADL's Start: 12/27/22 15:54 Freq: Status: Active Protocol: Document 12/27/22 15:54 CGR (Rec: 12/27/22 16:17 CGR [id number]) OT-Instrumental Activities of Daily Living Deficits IADL Deficits Identified No Deficits Home Safety Awareness Awareness of Need for Assistance at Home Good Awareness Ability to Problem Solve Emergency Able to Problem Solve Situations Medication Management Medication Management Caregiver Administers Money Management Money Management Caregiver Provides Assistance Meal Preparation Meal Preparation Caregiver Provides Assist Truck Body Builder Apprentice Truck Body Builder Apprentice Caregiver Provides Assist Driving Driving Comments Pt states that his vision now requires his spouse to drive. M6 OT- IP Functional Cognition Start: 12/27/22 15:54 Freq: Status: Active Protocol: Document 12/27/22 15:54 CGR (Rec: 12/27/22 16:17 CGR [id number]) Cognitive Factors Limiting Selfcare Function Cognitive Ability Level of Alertness Alert Patient Orientation Name,Age,Birthday,Month,Date, Year,Day of Week,Place, Situation Attention Span Ability Capable of Focused Attention, Capable of Sustained Attention Ability to Follow Commands Able to Follow Multi-Step Commands OT- Vision and Hearing OT- Vision Assessment Vision History Macular Degeneration Visual Acuity WFL Visual Attentiveness WFL Occular Pursuits WFL Visual Convergence WFL M7 OT- IP Mobility and Balance Start: 12/27/22 15:54 Freq: Status: Active Protocol: Document 12/28/22 14:19 CGR (Rec: 12/28/22 14:27 CGR [id number]) OT-Transfer Assessment Sit to and From Stand Sit to and from Stand Standby Assistance Comments Mobility Comments sit to squat from chair using B chair rails for tricep extensions. Pt was able to do 10 reps getting into a squat position. OT- Balance Assessment Sitting Balance and Reactions Static Sitting Balance Ability Good Dynamic Sitting Balance Ability Fair Standing Balance and Reactions Static Standing Balance Ability Poor Dynamic Standing Balance Ability Poor M8 OT- IP Objective Assessments Start: 12/27/22 15:54 Freq: Status: Active Protocol: Document 12/27/22 15:54 CGR (Rec: 12/27/22 16:17 CGR [id number]) OT Gross Range of Motion Upper Extremity Range of Motion Assessment Within Functional Limits OT Strength Comments Strength Comments B shlds 4-/5 B bicep 5-/5 B tricep 5-/5 B hands 4-/5 OT- Coordination Assessment Upper Extremity Finger to Nose Test Within Functional Limits Finger Tapping Test Within Functional Limits OT-Muscle Tone Assessment Muscle Tone WNL Yes OT Sensation Assessment Edema Edema Absent M9 OT- IP Assessment and Plan Start: 12/27/22 15:54 Freq: Status: Active Protocol: Document 12/29/22 11:59 AMS (Rec: 12/29/22 12:09 AMS [id number]) OT Summary Assessment and Plan Potential Rehabilitation Potential Good Summary OT Impairments Strength,Balance,Functional Mobility,Grooming,Dressing, Toileting,Bathing,Toilet Transfers,Shower Transfers, Activity Tolerance Progress Towards Goals Progressing Toward Goals Assessment Summary Joey was agreeable to transfer to chair w/ therapist . On 3.0L of oxygen via nasal cannula; 90% 02 stat supine in bed w/ HOB elevated; 93% 02 stat at conclusion of treatment session. Shortness of breath noted w/ rest breaks required between transitional movements; (+) ability to recover w/ functional rest breaks. SBA w/ supine --> EOB transfer to L w/ HOB elevated and utilization of bed railing . CGA w/ EOB --> chair transfer w/ utilization of FWW ; assist w/ management of line (s)/O2 tubing and set-up of chair w/ pressure relief cushions. Able to use bilateral arm rests to scoot back in chair without therapist assist. Patient not agreeable to ADLs at this time . Continued OT is recommended. Goals Grooming Goal Independent Dressing Goal Independent Toileting Goal Independent Bathing Goal Independent Toilet Transfer Goal Independent Shower Transfer Goal Independent Days to Meet Goals 32 Frequency of Treatment Frequency Of Treatment Once a Day Treatment Plan OT Treatment Plan ADL Training,Functional Mobility,Patient/Family Education,Discharge Planning Other Treatment Recommendations and Next ADLs seated, UE strengthening. Treatment Focus Discharge Recommendations OT Discharge Recommendations SNF Rehab Transportation Needs at Discharge Wheelchair/Cabulance
--- NOTE | 2022-12-29 14:35 | PT.IPTN ---
Current Diagnoses Acute respiratory failure with hypoxia (12/24/22) Pressure ulcer of sacral region, stage 3 (12/24/22) Pressure ulcer of unspecified hip, stage 2 (12/24/22) Physical Therapy Treatment Note M2 PT-IP Current Condition Start: 12/25/22 16:53 Freq: NEEDED Status: Active Protocol: Document 12/25/22 15:20 AB (Rec: 12/25/22 17:20 AB [id number]) Physical Therapy Current Condition Current Condition Evaluation Date 12/25/22 Treatment Diagnosis PNA; respiratory failure; generalized weakness Onset Date 12/24/22 M3 PT-IP Subjective Start: 12/25/22 16:53 Freq: NEEDED Status: Active Protocol: Document 12/29/22 14:57 TS (Rec: 12/29/22 15:05 TS [id number]) Subjective Physical Therapy Visit Type Type Treatment Note Visit Start Time 14:35 Visit Stop Time 14:57 Total Visit Minutes 22 Number of COOK VEGETABLE Visits 3 Physical Therapy Visit Comments Patient Comments Pt agreeable to PT. M4 PT-IP Mobility and Gait Start: 12/25/22 16:53 Freq: NEEDED Status: Active Protocol: Document 12/29/22 14:57 TS (Rec: 12/29/22 15:05 TS [id number]) PT-Transfer Assessment Sit to and From Stand Sit to and from Stand Maximum Assistance,1 Person Assistance,Use of Upper Extremities Equipment Transfer Assistive Device Gait Belt,Front Wheeled Walker Orthotic/Prosthetic Devices or Brace: No Comments Mobility Comments Sit to stand from chair x4 MaxA. 1st attempt with BUE support on arms of chair, slow to stand but acheived full upright position. Pt attempted 3 more times but could not achieve fully standing upright with MaxA x1. Pt wanted to remain in chair, call light nearby, all needs met. Gait Assessment Comments Gait Comments Not at this time. PT-Balance Assessment Sitting Balance and Reactions Static Sitting Balance Ability Good Dynamic Sitting Balance Ability Fair Standing Balance and Reactions Static Standing Balance Ability Poor Dynamic Standing Balance Ability Poor Device Used FWW M5 PT-IP Objective Assessments Start: 12/25/22 16:53 Freq: NEEDED Status: Active Protocol: Document 12/25/22 15:20 AB (Rec: 12/25/22 17:20 AB [id number]) Orientation Orientation/Cognition Level of Alertness Alert Orientation Name,Place,Situation Language Function Ability Hard of Hearing Safety Awareness Decreased Safety Awareness Memory Description Short Term Impaired Gross Range of Motion Lower Extremity ROM Assessment Right Impaired Impairments R knee limited extension ~ 20 deg less to 0 Strength Lower Extremity Strength Assessment Right Impaired Hip 3+/5 Knee 3/5 Muscle Tone Muscle Tone WNL Yes M6 PT-IP Treatment Start: 12/25/22 16:53 Freq: NEEDED Status: Active Protocol: Document 12/29/22 14:57 TS (Rec: 12/29/22 15:05 TS [id number]) Physical Therapy Treatment Exercises Exercises Ankle Pumps,Quad Sets,Heel Slides Other Treatments Other Treatment Performed Educated pt on the importance of bed exercises for strengthening of LEs while in chair/bed. M7 PT-IP Assessment and Plan Start: 12/25/22 16:53 Freq: NEEDED Status: Active Protocol: Document 12/29/22 14:57 TS (Rec: 12/29/22 15:05 TS [id number]) PT Summary Assessment and Plan Potential Rehabilitation Potential Fair Summary Impairments Pain,ROM,Strength,Balance, Coordination,Sensation,Tone, Cognition,Bed Mobility, Transfers,Gait,Activity Tolerance Progress Towards Goals Progressing Toward Goals Assessment Summary Pt continues to require MaxA x1 for sit to stand. Pt could not come fully into standing on next three attempts, achieved minimal lift from chair due to low surface. Pt's o2 remained in low 90's throughout session. PT recommends SNF to progress funcitonal mobility and activity tolerance. Goals Bed Mobility Goal Standby Assistance Transfer Goal Minimal Assistance,Front Wheeled Walker Frequency of Treatment Frequency Of Treatment Once a Day Treatment Plan Physical Therapy Treatment Plan Bed Mobility Training,Transfer Training,Therapeutic Exercise ,Balance Retraining,Post Op Education,Discharge Planning, Hot or Cold Pack,Neuromuscular Re-ed,Coordination Retraining ,Manual Therapy Other Recommendations and Next Treatment Progress standing tolerance, Focus LE strength, surface to surface transfers with LRAD, pivot transfers. Precautions Other Precautions Monitor SPO2 Recommendations To Nursing Amount of Assist Needed Mechanical Lift Discharge Recommendations PT Discharge Recommendations SNF Rehab Transportation Needs at Discharge Wheelchair/Cabulance,Stretcher /Ambulance
--- NOTE | 2022-12-29 16:03 | P.PN_ITS ---
Subjective Subjective Interval history: Patient feeling well. Now on 2L NC. Awaiting SNF, probably tomorrow Exam Vital Signs (past 8 hours): - 12/29/22 09:00 12/29/22 13:23 12/29/22 13:00 Temperature 97.3 F L 97.5 F L Pulse Rate 73 71 84 Respiratory Rate 20 20 21 Blood Pressure 170/74 H 109/55 L Pulse Oximetry 95 90 L 94 Oxygen Delivery Method Nasal Cannula Oxygen Flow Rate 2 2 2 Oxygen Delivery Method Nasal Cannula Oxygen Flow Rate 2 Narrative Exam Narrative: General: Patient is a well-developed, well-nourished in no acute distress at this time. Obese. HEENT: Normocephalic, atraumatic, extraocular muscles intact, oral pharynx is clear and mucous membranes are moist. Neck is supple and symmetric, trachea is midline, no adenopathy, no thyroid enlargement, nontender, no masses palpated. Negative for JVD Chest: Pacemaker upper right, Equal chest rise without nasal flaring, retractions. mild shallow, tachypneic, labored breathing. Lungs: Auscultation of all lung d[place] are decreased, poor air exchange, diff use expiratory wheezing throughout, decreased in bilateral bases. Cardio: regular rate and rhythm without murmur, rubs, or gallops, no carotid bruit, no cardiac pulsations present. Abdomen: Soft nontender, negative for organomegaly, or masses. Bowel sounds are present in all 4 quadrants without guarding or rebound, no CVA tenderness. Ferguson in place Musculoskeletal: Muscle strength and tone are equal, no deformity, crepitus, effusions, cyanosis, clubbing present. Positive right lower extremity trace nonpitting edema, greater than left. Full range of motion intact radial and pedal pulses are normal. Skin: Warm dry and intact without rashes, stage 2-3 pressure wounds to posterior scrotum and sacrum Neuro: Alert and orientated x3, moves all extremities, sensation to touch intact, no gross deficits noted of cranial nerves. Psych: Patient has a well-kept appearance, appropriate affect, mental status attitude thought context and judgment are appropriate for age. Objective Labs 12/28/22 04:55 12/28/22 04:55 [facility] Medical History Chronic anticoagulation Chronic indwelling Ferguson catheter Congestive heart failure Coronary artery disease History of TN (myocardial infarction) Hyperlipidemia Hypertension Intermittent self-catheterization of bladder Pacemaker Paraplegic spinal paralysis Spinal cord injury, incomplete Surgical History History of coronary artery stent placement History of laminectomy History of right knee joint replacement Family History Father Congestive heart failure Mother Cancer Social History household members: spouse Smoking Status: Never smoker alcohol intake: never Assessment & Plan Assessment & Plan narrative: Acute hypoxic, hypercapnic respiratory failure secondary to pneumonia, acute, present on admission * sat's: 80s% on rm air EMS/ED. Patient is not on any chronic O2. initially in the ER on 6L/NC, has been tapered down to 2 L/NC. Suspect COPD exacerbation from viral illness with underlying DANIEL/OHS contributing. * CTA: Negative for PE, Mild pruning of distal pulmonary arteries.? Cannot rule out chronic pulmonary embolism.? Mild enlargement of central pulmonary artery, Moderate cardiomegaly.? There is coronary artery disease, and Mild mediastinal and bilateral hilar lymphadenopathy. * Lactate neg, albumin 3.3, CRP 5.6, BNP 688, procal neg, MRSA neg, respiratory panel negative. * Solumedrol 60mg IV BID, DuoNebs q.4 hours as needed, incentive spirometry, Tessalon Perles, guaifenesin with codeine. Change to prednisone today, can likely stop steroids at time of discharge. 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 * Patient has multiple posterior scrotal wounds: Will order dressing changes q.day, wound culture * 08/02/2022 decubitus buttocks wound culture : Proteus mirabilis strep group B * Urine culture pending * On last admit recommend that patient stop useage of indwelling ferguson, consider urology o/p consult for urinary cath port access like suprapubic catheter. * wound care consult ordered-rec continuing current dressings, frequent turning and E hob cushion for pressure offloading, f/u in wound clinic Possible undiagnosed DANIEL, present on admission * Bicarb elevated on BMP at 31, patient is morbidly obese * no h/o DANIEL but I suspect he has this as well as OHS * CPAP ordered at night-patient refused after using for 1 night Incomplete SCI, paraplegic, neurological function deterioration, frequent falls, chronic, present on admission * recommend rehab * PT OT evaluation * recommend patient consult Neurology/and or est care SCI specialist at for on-going management * Fall precautions Congestive heart failure, chronic, with a history of TN, stent x2, pacemaker on chronic anticoagulation, present on admission * low-sodium diet, daily weights * Continue Lasix, Eliquis * echo pending as above Right leg edema, with erythema, chronic, present on admission * history of DVT in right lower leg, progressive leg weakness, edema greater to rt/lt. 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 The pa digna's obesity increases the difficulty and complexity of medical and/or surgical interventions, management and increases the chances of poor outcome such as morbidity and mortality as well as impaired wound healing.? Code status:Full DVT/VTE prophylaxis: Devon Zaidi only Disposition: SNF in 1-2 days pending insurance auth.
[2022-12-29] MEDS: SENNOSIDES 8.6 MG TABLET 17.2 MG PO (20:07)
[2022-12-30 04:00] VITALS: BP 136/96; PULSE 69; RESP 18; TEMP 37; O2SAT 95
[2022-12-30 06:08] LABS: BUN Creatinine Ratio 44.3 (6-22); Blood Urea Nitrogen 35 mg/dL (9-20); Calcium 8.4 mg/dL (8.4-10.2); Carbon Dioxide 32 mmol/L (22-32); Chloride 101 mmol/L (98-107); Estimated Glomerular Filt Rate > 60 mL/min (>60); Glucose 101 mg/dL (80-110); HEMOLYSIS < 15 (0-50); Magnesium 2.4 mg/dL (1.6-2.3); Potassium 4.3 mmol/L (3.4-5.1); Sodium 136 mmol/L (137-145)
[2022-12-30 08:00] VITALS: BP 124/86; PULSE 60; RESP 18; TEMP 36.2; O2SAT 96
--- NOTE | 2022-12-30 08:49 | PM.DS.1 ---
History of Present Illness History of Present Illness Date Patient Seen: 12/30/22 Chief complaint: Acute respiratory failure, pneumonia Narrative: Per admitting provider, Joey Grover is an 82-year-old male with a hx of CHF, MT stent x2, pacer on chronic Eliquis, HTN, HLD, CAD, history of right leg DVT, incomplete SCI paraplegic (reported secondary to laminectomy in 2002 that resulted in spinal Staph infection), intermittent catheterization during day &?Mckee nightly, who was brought in by EMS from home following several days of increased shortness of breath, sputum production, nasal drainage, worsening cough, reported fever, chills, increased fatigue was found to be satting in the 80s on room air by EMS/ED. Patient is not on any chronic O2. Patient initially presented requiring 6L/NC, has been tapered down to 3 L/NC O2 saturation of 98%. Patient denies chest pain, shortness in breath (now on 02), headache, changes in vision, difficulty swallowing, sore throat, speech impairment, weakness, numbness, tingling, difficulty with ambulation, recent falls, head injury, LOC, recent exposure to illness, abdominal pain, nausea, vomiting, urinary incontinence/retention, dysuria, frequency, urgency, hematuria, bowel changes, constipation, incontinence, melena, rashes, recent changes to medication, illness, injury, or trauma. Patient does have in-home nursing 3 times a week, has multiple wounds on his scrotum of which he has daily dressing changes. On admit temp 98.5?, 139/68, 71, 29, O2 saturation 98% on 3 L/NC. Patient does not appear to be in any respiratory distress and is resting comfortably. HGB 12/HCT 39, eos 600, bicarb 35, BUN 22, glucose 143, lactate is negative, albumin 3.3. VBG is pH normal, pCO2 56.5, PO2 26, bicarb 34, TCO2 36, O2 sat 45%, BE 9, FiO2 24. Troponin normal 0.014, CRP 5.6, BNP 688, procalcitonin normal, MRSA negative, respiratory panel negative. Chest CTA:Negative for PE, ? Mild pruning of distal pulmonary arteries.? Cannot rule out chronic pulmonary embolism.? Mild enlargement of central pulmonary artery, Moderate cardiomegaly.? There is coronary artery disease, and Mild mediastinal and bilateral hilar lymphadenopathy.? This finding is nonspecific and may be secondary to infectious, inflammatory or neoplastic etiology. Patient admitted for acute hypoxic respiratory failure secondary to pneumonia. Discharge Providers Provider Date of admission: 12/24/22 19:25 Discharge Date: 12/30/22 Primary care physician: George Luna DO Consults: 12/25/22 01:18 Consult to Occupational Therapy Evaluate & Treat Comment: Weakness/Fatigue Physician Instructions: Evaluate and treat Consult to Physical Therapy Evaluate & Treat Comment: Weakness/Fatigue Physician Instructions: Evaluate and Treat 12/25/22 22:28 Consult to Dietitian, Adult Routine Comment: Reason For Exam: per protocol, roopa scale scrore 13 12/26/22 13:16 Consult to Wound Care Routine Comment: Consulting Provider: [facility] Discharge provider: Humble Lozano DO Summary Hospital Course Discharge Diagnosis: Acute hypoxic, hypercapnic respiratory failure secondary to pneumonia, acute, present on admission Chronic wounds, genitalia due to Chronic indwelling catheter and intermittent catheterization secondary to SCI, acute on chronic, present on admission Possible undiagnosed DANIEL, present on admission Incomplete SCI, paraplegic, neurological function deterioration, frequent falls, chronic, present on admission Congestive heart failure, chronic, with a history of MT, stent x2, pacemaker on chronic anticoagulation, present on admission Right leg edema, with erythema, chronic, present on admission Hypertension, essential, chronic, present on admission Chronic low back, present on admission Hyperlipidemia, chronic, present on admission Morbid obesity secondary to incomplete SCI paraplegic, acute on chronic, present on admission Hospital Course: Joey Grover is an 82-year-old male with a hx of CHF, MT stent x2, pacer on chronic Eliquis, HTN, HLD, CAD, history of right leg DVT, incomplete SCI paraplegic (reported secondary to laminectomy in 2002 that resulted in spinal Staph infection), intermittent catheterization during day &?Mckee nightly, who was brought in by EMS from home following several days of increased shortness of breath, sputum production, nasal drainage, worsening cough, reported fever, chills, increased fatigue was found to be satting in the 80s on room air by EMS/ED. He was admitted with acute respiratory failure secondary to pneumonia, likely exacerbated by his chronic conditions including DANIEL and diastolic heart failure. CPAP therapy was attempted, but he refused after one session due to discomfort. He was also treated with steroids for possible obstructive lung disease, though this is felt to be less likely at discharge and steroids were not continued. He has had slow improvement in his oxygen requirements, but suspect he may have a component of chronic hypoxia based on underlying chronic diseases. Wound care was consulted for his chronic genitalia wounds, and recommended continued dresing changes, turning, and an E hob cusion with outpatient wound clinic follow up recommended. He was transferred to SNF for continued therapies after completion of steroid and antibiotic courses here in the hospital. His home coreg was restarted at a much lower dose at the time of discharge given normotension during admission, and based on renal function and weight patient is able to take full dose of eliquis which was also changed. Time Spent with Patient Time spent: Greater than 30 minutes Exam Vital Signs (past 8 hours): - 12/30/22 04:00 Temperature 98.6 F Pulse Rate 69 Respiratory Rate 18 Blood Pressure 136/96 H Pulse Oximetry 95 Oxygen Flow Rate 2 Oxygen Delivery Method Nasal Cannula Oxygen Flow Rate 2 Narrative Exam Narrative: General: Patient is a well-developed, well-nourished in no acute distress at this time. Obese. HEENT: Normocephalic, atraumatic, extraocular muscles intact, oral pharynx is clear and mucous membranes are moist. Neck is supple and symmetric, trachea is midline, no adenopathy, no thyroid enlargement, nontender, no masses palpated. Negative for JVD Chest: Pacemaker upper right, Equal chest rise without nasal flaring, retractions. mild shallow, tachypneic, labored breathing. Lungs: Auscultation of all lung [place] are decreased, poor air exchange, diffuse expiratory wheezing throughout, decreased in bilateral bases. Cardio: regular rate and rhythm without murmur, rubs, or gallops, no carotid bruit, no cardiac pulsations present. Abdomen: Soft nontender, negative for organomegaly, or masses. Bowel sounds are present in all 4 quadrants without guarding or rebound, no CVA tenderness. Mckee in place Musculoskeletal: Muscle strength and tone are equal, no deformity, crepitus, effusions, cyanosis, clubbing present. Positive right lower extremity trace nonpitting edema, greater than left. Full range of motion intact radial and pedal pulses are normal. Skin: Warm dry and intact without rashes, stage 2-3 pressure wounds to posterior scrotum and sacrum Neuro: Alert and orientated x3, moves all extremities, sensation to touch intact, no gross deficits noted of cranial nerves. Psych: Patient has a well-kept appearance, appropriate affect, mental status attitude thought context and judgment are appropriate for age. Objective Labs 12/28/22 04:55 12/30/22 05:20 Labs: Laboratory Results - last 24 hr 12/30/22 05:20 Sodium 136 L Potassium 4.3 Chloride 101 Carbon Dioxide 32 BUN 35 H Creatinine 0.79 Estimated GFR > 60 BUN/Creatinine Ratio 44.3 H Glucose 101 Calcium 8.4 Magnesium 2.4 H PFSH Medical History Chronic anticoagulation Chronic indwelling Mckee catheter Congestive heart failure Coronary artery disease History of MT (myocardial infarction) Hyperlipidemia Hypertension Intermittent self-catheterization of bladder Pacemaker Paraplegic spinal paralysis Spinal cord injury, incomplete Surgical History History of coronary artery stent placement History of laminectomy History of right knee joint replacement Family History Father Congestive heart failure Mother Cancer Social History household members: spouse Smoking Status: Never smoker alcohol intake: never Discharge Plan Discharge Plan Patient Disposition: SNF Other facility: [facility] Provider Discharge Comment: 82 M admitted with respiratory failure secondary to likely pneumonia with possible COPD exacerbation. He completed antibiotics and steroids while admitted. Has chronic wounds and Per wound care consult, Continue dressing changes with Medi Honey and alginate, recommend frequent turning, use of E hob cushion for pressure offloading, nutritional support, follow up at wound center after discharge. Beta ricardo was decreased during his stay, may need to titrate up to previous dosing depending on BP. Discharge orders & Medications Prescriptions: New Eliquis 5 mg Tablet 5 mg PO BID 30 Days Qty: 60 0RF carvedilol 6.25 mg tablet 6.25 mg PO BID 30 Days Qty: 60 0RF Rx Instructions: must administer with a meal/food Continued lidocaine 5 % adhesive patch,medicated 1 patch transdermal Q12H PRN (Reason: Pain, Mild) albuterol sulfate [ProAir HFA] 90 mcg/actuation HFA aerosol inhaler 1 puff INHALATION Q4HR PRN (Reason: sob) atorvastatin 40 mg tablet 40 mg PO DAILY gabapentin 600 mg tablet 600 mg PO TID multivitamin Tablet 1 tab PO DAILY furosemide 40 mg Tablet 40 mg PO DAILY calcium carbonate-vitamin D3 600 mg-5 mcg (200 unit) Tablet 1 tab PO DAILY acetaminophen 500 mg Tablet 500 mg PO Q6H PRN (Reason: Pain (Scale Score 1-3)) vitamin A-vitamin C-vit E-min Tablet 1 tab PO DAILY Discontinued carvedilol [Coreg] 25 MG tablet 25 mg PO BID Qty: 0 Eliquis 2.5 mg tablet 2.5 mg PO BID Follow up/Referrals: George Luna DO [Primary Care Provider] - Discharge Health Status Multidrug resistant organism: No MDRO Precautions: [place] Diet/Activity/Treatments Diet: Diet as Tolerated and Low-sodium Liquid consistency: Normal/Thin Food texture: Regular Diet comment: Heart healthy diet Activity: As tolerated, no restrictions Oxygen: As needed to keep O2 89-96% while on therapy [facility] Reason for rehabilitation: Recovery r/t decondition Rehab type: Physical therapy and Occupational therapy Visit Report/Discharge Packet Stand Alone Forms: Patient Portal/API Discharge Data Primary Care Provider: George Luna Discharges patient from system. Discharge Date/Time: 12/30/22 11:54
--- NOTE | 2022-12-30 08:51 | CM.DPC ---
DCP Cont: Spoke to ALEKSEY Burgos bottle caser, as a message was left with her yesterday. Updated her that patient is to be going to [facility] in [place] today, with spanish moss picker at 11:00, for keno terminal operator care. She is awaare that it has been difficult for spouse to care for him, and she attempted to get a caregiver in the home, but patient has only wanted spouse to care for him. She feels that this will be a good discharge plan for patient. Patient and spouse were updated yesterday, on discharge plan, and Imani was able to speak to spouse, Gaby. Patient has discharge orders, left a message with Imani to confirm spanish moss picker at 11:00. Left an updated message with spouse, Gaby, and updated nurse, Beata, updated white board at main [facility] station, and hospitalist is aware. PASSR completed, Tonya will fax over orders, PASSR, and DC Summary to [facility]. P: Patient is discharging to [facility] today with spanish moss picker at 11:00. Lu Pozo RN/Gabe Pozo.
[2022-12-30 09:00] VITALS: O2SAT 96
[2022-12-30] MEDS: DOCUSATE 100 MG CAPSULE PO (09:20)
[2022-12-30] MEDS: ATORVASTATIN 20 MG TABLET 40 MG PO (09:20)
[2022-12-30] MEDS: ACETAMINOPHEN 325 MG TABLET 650 MG PO (09:20)
[2022-12-30] MEDS: GABAPENTIN 600 MG TABLET PO (09:20)
[2022-12-30] MEDS: guaiFENesin ER 600 MG TAB PO (09:20)
[2022-12-30] MEDS: FUROSEMIDE 20 MG TABLET PO (09:20)
[2022-12-30] MEDS: APIXABAN 5 MG TABLET PO (09:20)
[2022-12-30] MEDS: predniSONE 20 MG TABLET 40 MG PO (09:20)
[2022-12-30 09:21] VITALS: BP 124/68; PULSE 68
[2022-12-30] MEDS: carvediloL 3.125 MG TABLET 6.25 MG PO (09:21)
[2022-12-30 09:58] VITALS: O2SAT 92
== END 2022-12-30 11:54 | DRG 193 ==
LOC: ED 19:25 → AC 19:26
PROVIDERS: Emergency Medicine; Internal Medicine; Admitting Provider Nurse Practitioner Family; Emergency Provider Emergency Medicine; Family Provider Family Medicine; PCP Family Medicine; Referring Provider Emergency Medicine; Visit Provider Nurse Practitioner Family
DX: J18.9 Pneumonia, unspecified organism (principal); J96.01 Acute respiratory failure with hypoxia; L89.153 Pressure ulcer of sacral region, stage 3; J96.02 Acute respiratory failure with hypercapnia; G82.22 Paraplegia, incomplete; Z68.41 Body mass index [BMI] 40.0-44.9, adult; I50.32 Chronic diastolic (congestive) heart failure; I25.10 Atherosclerotic heart disease of native coronary artery without angina pectoris; I25.2 Old myocardial infarction; G89.29 Other chronic pain; M54.9 Dorsalgia, unspecified; E78.5 Hyperlipidemia, unspecified; E66.01 Morbid (severe) obesity due to excess calories; L89.892 Pressure ulcer of other site, stage 2; B96.4 Proteus (mirabilis) (morganii) as the cause of diseases classified elsewhere; G47.33 Obstructive sleep apnea (adult) (pediatric); R29.6 Repeated falls; I11.0 Hypertensive heart disease with heart failure; Z20.822 Contact with and (suspected) exposure to COVID-19; Z95.0 Presence of cardiac pacemaker; Z95.5 Presence of coronary angioplasty implant and graft; Z86.718 Personal history of other venous thrombosis and embolism; Z77.22 Contact with and (suspected) exposure to environmental tobacco smoke (acute) (chronic); Z79.01 Long term (current) use of anticoagulants
CPT/HCPCS: 36415; 71045; 71275; 80048; 80053; 82805; 83605; 83735; 83880; 84145; 84484; 85025; 85610; 86140; 87040; 87070; 87075; 87077; 87086; 87186; 87205; 87633; 87635; 87797; 93005; 93010; 93306; 94640; 94760; 96365; 96367; 97110; 97163; 97166; 97530; 99232; 99285; C9803; J0696; J1956; J2930; Q9957; Q9967